=== PATIENT | male | born 1965 | race Native Hawaiian/Other Pacific Islander ===

== ENCOUNTER 2021-06-09 14:30 | Inpatient (IN) | payer SELFPAY ==
--- NOTE | 2021-06-09 16:01 | Event Note ---
ED Screening Note ED Screening Note: Patient has been sick for 8 days He is Covid positive Complaining of shortness of breath Denies chest pain He is hypoxic and tachypneic He is satting 88% on 6 L nasal cannula This initial assessment/diagnostic orders/clinical plan/treatment(s) is/are subject to change based on patients health status, clinical progression and re- assessment by fellow clinical providers in the ED. Further treatment and workup at subsequent clinical providers discretion. Patient/guardian urged not to elope from the ED as their condition may be serious if not clinically assessed and managed. Initial orders include: Orders placed and patient sent to room 19 in the main ED for MD li
--- NOTE | 2021-06-09 16:28 | XRay Report ---
XR chest 1V ap INDICATION / CLINICAL INFORMATION: COVID +, hypoxia, COMPARISON: None available. FINDINGS: SUPPORT DEVICES: None. HEART / MEDIASTINUM: No significant abnormality. LUNGS / PLEURA: Patchy bilateral airspace disease most pronounced in the left mid and lower lung zone . Costophrenic sulci are sharp. No pneumothorax. ADDITIONAL FINDINGS: No significant additional findings. IMPRESSION: 1. Patchy airspace disease consistent with Covid pneumonia. Signer Name: Tj Pennington MD Signed: 06/09/2021 4:23 PM Workstation Name: [id number]
[2021-06-09 16:32] LABS: Basophils % (Auto) 0.2 % (0.0-1.8); Hematocrit 47.9 % (35.5-45.6); Hemoglobin 15.9 gm/dl (11.8-15.2); Lymphocytes # (Auto) 1.4 K/mm3 (1.2-5.4); Lymphocytes % (Auto) 15.3 % (13.4-35.0); Mean Corpuscular HGB Conc 33 % (32-34); Mean Corpuscular Volume 85 fl (84-94); Monocytes % (Auto) 10.8 % (0.0-7.3); Platelet Count 222 K/mm3 (140-440); Red Blood Count 5.66 M/mm3 (3.65-5.03); Red Cell Distribution Width 15.6 % (13.2-15.2)
[2021-06-09] MEDS ORDERED: dexAMETHasone 4 MG/ML VIAL IV ONE (16:33)
[2021-06-09] MEDS ORDERED: AZITHROMYCIN/NS 500 MG/250 ML 500 MG/250 ML BAG IV ONE (16:33)
[2021-06-09] MEDS ORDERED: cefTRIAXone/NS 1 GM/50 ML 1 GM/50 ML BAG IV ONE (16:33)
[2021-06-09] MEDS ORDERED: SODIUM CHLORIDE 0.9% 1000 ML 1,000 ML IV ONE (16:34)
--- NOTE | 2021-06-09 16:49 | Emergency Department Report ---
ED Shortness of Breath HPI - General Chief Complaint: Dyspnea/Respdistress Stated Complaint: COVID POSITIVE OXYGEN 80 Time Seen by Provider: 06/09/21 16:30 Source: patient Mode of arrival: Ambulatory Limitations: No Limitations - History of Present Illness Initial Comments: Patient is 55 years old male with history of hypertension. Patient pre sented to the ER complaining of difficulty in breathing, cough and generalized weakness for the last 8 days. Patient stated that he was diagnosed with COVID- 19 5 days ago. Patient stated that his son was diagnosed with COVID-19 few days before that. Patient denied any chest pain, nausea or vomiting. Patient found to have an oxygen saturation of 88% on room air improved improved to 92% on 5 L. Complaint: shortness of breath, cough -: days(s) (8) Consistency: constant Improves With: oxygen Context: recent URI - Related Data Allergies Allergy/AdvReac Type Severity Reaction Status Date / Time No Known Allergies Allergy Unverified 06/09/21 14:48 ED Review of Systems ROS: Stated complaint: COVID POSITIVE OXYGEN 80 Other details as noted in HPI Comment: All other systems reviewed and negative Constitutional: chills, fever Respiratory: cough, shortness of breath, SOB with exertion, SOB at rest. de nies: orthopnea, wheezing Cardiovascular: denies: chest pain Gastrointestinal: denies: abdominal pain, nausea, vomiting Neurological: weakness. denies: headache, numbness, paresthesias, confusion, abnormal gait ED Past Medical Hx - Past Medical History Previous Medical History?: Yes Hx Hypertension: Yes - Surgical History Past Surgical History?: No ED Physical Exam - General Limitations: No Limitations General appearance: alert, in distress - Head Head exam: Present: atraumatic, normocephalic, normal inspection - Eye Eye exam: Present: normal appearance, PERRL - ENT ENT exam: Present: mucous membranes dry - Neck Neck exam: Present: normal inspection, full ROM. Absent: tenderness, meningismus, lymphadenopathy, thyromegaly - Respiratory Respiratory exam: Present: respiratory distress. Absent: wheezes, rales, rhonchi, accessory muscle use, decreased breath sounds, prolonged expiratory - Cardiovascular Cardiovascular Exam: Present: regular rate, normal rhythm, normal heart sounds - GI/Abdominal GI/Abdominal exam: Present: soft, normal bowel sounds. Absent: distended, tenderness, guarding, rebound, rigid, organomegaly, mass, bruit, pulsatile mass, hernia - Extremities Exam Extremities exam: Present: normal inspection, full ROM, normal capillary refill. Absent: tenderness, pedal edema, joint swelling, calf tenderness - Back Exam Back exam: Present: normal inspection, full ROM. Absent: CVA tenderness (R), CVA tenderness (L) - Neurological Exam Neurological exam: Present: alert, oriented X3, CN II-XII intact, normal gait, reflexes normal. Absent: motor sensory deficit - Psychiatric Psychiatric exam: Present: normal mood - Skin Skin exam: Present: warm, intact, normal color ED Course Vital Signs 06/09/21 06/09/21 06/09/21 14:53 16:31 16:32 Temperature 99.4 F Pulse Rate 86 Respiratory 30 H Rate Blood Pressure 146/77 Blood Pressure 130/73 [Right] O2 Sat by Pulse 92 92 90 Oximetry ED Medical Decision Making - Lab Data Result diagrams: 06/09/21 16:03 06/09/21 16:03 - Radiology Data Radiology results: report reviewed - Medical Decision Making Patient is 55 years old male with history of hypertension. Patient presented to the ER complaining of difficulty in breathing, cough and generalized weakness for the last 8 days. Patient stated that he was diagnosed with COVID-19 5 days ago. Patient stated that his son was diagnosed with COVID- 19 few days before that. Patient denied any chest pain, nausea or vomiting. Patient found to have an oxygen saturation of 88% on room air improved improved to 92% on 5 L. Chest x-ray showed bilateral infiltrate concerning for Covid pneumonia. Patient received Rocephin, Zithromax and Decadron. Patient also received normal saline. I discussed the patient with Dr. HACKETT, she agreed to admit the patient to medical service for further management. Critical Care Time: Yes Critical care time in (mins) excluding proc time.: 30 Critical care attestation.: If time is entered above; I have spent that time in minutes in the direct care of this critically ill patient, excluding procedure time. ED Disposition Clinical Impression: Acute respiratory failure with hypoxia, Bilateral pneumonia, Suspected COVID-19 virus infection Disposition: ADMITTED INPATIENT Is pt being admited?: Yes Condition: Stable Instructions: Bacterial Pneumonia (ED) Referrals: PRIMARY CARE, [Primary Care Provider] - 3-5 Days
[2021-06-09 16:52] LABS: C-Reactive Protein 6.3 mg/dL (0.00-1.30)
[2021-06-09 16:54] LABS: Alanine Aminotransferase 151 units/L (7-56); Albumin 3.9 g/dL (3.9-5); BUN/Creatinine Ratio 16; Blood Urea Nitrogen 13 mg/dL (9-20); Calcium 9.2 mg/dL (8.4-10.2); Hemolysis Index 10
[2021-06-09] MEDS ORDERED: HYDROcodone/ACETAMINOPHEN 5-325 MG TAB PO PRN (17:43)
[2021-06-09] MEDS ORDERED: ACETAMINOPHEN 325 MG TAB PO PRN (17:43)
[2021-06-09] MEDS ORDERED: ONDANSETRON 4 MG/2 ML INJ IV PRN (17:43)
[2021-06-09] MEDS ORDERED: hydrALAZINE 20 MG/1 ML INJ IV PRN (17:43)
--- NOTE | 2021-06-09 17:46 | History and Physical Report ---
History of Present Illness Date of examination: 06/09/21 Date of admission: 06/09/21 Chief complaint: SOB History of present illness: Patient is 55 years old male with history of hypertension presented to the ER complaining of difficulty in breathing, cough and generalized weakness for the last 8 days. Patient stated that he was diagnosed with COVID-19 5 days ago after his son was diagnosed with COVID-19 few days before that. Patient found to have an oxygen saturation of 88% on room air improved improved to 92% on 5 L. On arrival, temperature 99.4, HR 86, BP 146/77, RR 30, CXR showed b/l infiltrates. Patient being admitted for further evaluation and management. Review of System: Constitutional: + fever, + chills, no weight loss, + loss of appetite Ears, eyes, nose, mouth and throat: no nasal congestion, no nasal discharge, no sinus pressure, no vision change, no red eye. Neck: No neck pain or rigidity. Cardiovascular: + pleuretic chest pain, no orthopnea, no palpitations, no leg swelling Respiratory: + shortness of breath, + cough, + congestion, + wheezing Gastrointestinal: no abdominal pain, no nausea, no vomiting Genitourinary : no dysuria, no hematuria, + decreased urinary output Musculoskeletal: no joint swelling or muscle ache Integumentary: no rash, no pruritis Neurological: no parathesias, no numbness, no tingling Endocrine: no cold or heat intolerance, no polyuria or polydipsia, Hematologic/Lymphatic: no easy bruising, no easy bleeding, no gland swelling Allergic/Immunologic: no urticaria, no angioedema. Past History Past Medical History: hypertension Past Surgical History: No surgical history Social history: denies: smoking, alcohol abuse Family history: hypertension Medications and Allergies Allergies Allergy/AdvReac Type Severity Reaction Status Date / Time No Known Allergies Allergy Unverified 06/09/21 14:48 Exam - Physical Exam Narrative exam: Limited physical exam due to COVID-19 pandemic to minimize transmission of the disease and to preserve PPE. Vital reviewed and stable. GENERAL: well-developed well-nourished lying on bed appeared to be in no discomfort. HEENT: Normocephalic. Atraumatic. NECK: Supple. CHEST/LUNGS: breathing nonlabored on supplemental O2. HEART/CARDIOVASCULAR: Heart rate stable on telemetry ABDOMEN: Visibly not distended SKIN: There is no rash NEURO: No focal motor deficit. Follows command. MUSCULOSKELETAL: No joint effusion EXTRIMITY: No swelling, no cyanosis or clubbing. PSYCH: Cooperative. - Constitutional Vitals: Temp Pulse Resp BP Pulse Ox 99.4 F 86 30 H 146/77 90 06/09/21 14:53 06/09/21 14:53 06/09/21 14:53 06/09/21 16:32 06/09/21 16:32 Results - Labs CBC & Chem 7: 06/11/21 06:12 06/12/21 05:57 Labs: Abnormal lab results 06/09/21 06/09/21 06/09/21 Range/Units 16:03 16:03 16:03 RBC 5.66 H (3.65-5.03) M/mm3 Hgb 15.9 H (11.8-15.2) gm/dl Hct 47.9 H (35.5-45.6) % RDW 15.6 H (13.2-15.2) % [place] % (Auto) 10.8 H (0.0-7.3) % [place] # (Auto) 1.0 H (0.0-0.8) K/mm3 Seg Neutrophils % 73.7 H (40.0-70.0) % D-Dimer 306.17 H (0-234) ng/mlDDU Glucose 104 H (75-100) mg/dL Ferritin (30.0-300.0) ng/mL AST 182 H (5-40) units/L ALT 151 H (7-56) units/L Lactate Dehydrogenase (91-180) units/L C-Reactive Protein (0.00-1.30) mg/dL Total Protein 8.3 H (6.3-8.2) g/dL 06/09/21 06/09/21 Range/Units 16:03 16:03 RBC (3.65-5.03) M/mm3 Hgb (11.8-15.2) gm/dl Hct (35.5-45.6) % RDW (13.2-15.2) % [place] % (Auto) (0.0-7.3) % [place] # (Auto) (0.0-0.8) K/mm3 Seg Neutrophils % (40.0-70.0) % D-Dimer (0-234) ng/mlDDU Glucose (75-100) mg/dL Ferritin 2377.0 H (30.0-300.0) ng/mL AST (5-40) units/L ALT (7-56) units/L Lactate Dehydrogenase 575 H (91-180) units/L C-Reactive Protein 6.30 H (0.00-1.30) mg/dL Total Protein (6.3-8.2) g/dL - Imaging and Cardiology Chest x-ray: report reviewed (Patchy airspace disease suspected for COVID-19 pneumonia) Assessment and Plan --COVID-19 pneumonia -Patient tested positive for COVID-19 virus outpt -CXR shows patchy parenchymal disease which represent atypical pneumonia -S/p dexamethasone, azithromycin and Rocephin in the ED -Placed on dexamethasone for total 10 days and remdesivir total 5 days -Ordered procalcitonin level -Infectious disease consulted, -Droplet/contact isolation -Continue SPO2 monitoring -Supplemental oxygen as needed -Pulmonary hygiene -Prone to sleep -Vitamin C, vitamin D, zinc -Anticoagulation per protocol -Lasix IV as needed to prevent pulmonary edema --Acute hypoxic respiratory failure Empiric steroid, supplemental O2, albuterol inhalers, ABG chest x-ray per protocol, consult pulmonary symptoms not improving --Hypertension, resume home meds, hydralazine iv to keep SBP <160 --Elevated LFTs, due to COVID PNA --Morbid obesity, associated with worse outcome for COVID --DVT prophylaxis per protocol
[2021-06-09] MEDS ORDERED: REMDESIVIR 200 MG in SODIUM CHLORIDE 0.9% 250ML 250 ML IV ONE (20:00)
[2021-06-09] MEDS: SODIUM CHLORIDE 0.9% 50 ML IVPB IV SCH (20:34)
[2021-06-09] MEDS: ASCORBIC ACID 500 MG TAB PO SCH (21:55)
[2021-06-09] MEDS: FAMOTIDINE 10 MG TAB PO SCH (21:56)
[2021-06-09 21:57] LABS: Alanine Aminotransferase 130 units/L (7-56); Albumin 3.4 g/dL (3.9-5); Blood Urea Nitrogen 11 mg/dL (9-20); Calcium 8.2 mg/dL (8.4-10.2); Hemolysis Index 3
[2021-06-09] MEDS: HEPARIN 5,000 UNIT/1 ML VIAL SUB-Q SCH (21:57)
[2021-06-09] MEDS: INSULIN REGULAR, HUMAN 100 UNITS/1 ML SUB-Q SCH (21:57)
[2021-06-09 22:01] LABS: BUN/Creatinine Ratio 16
[2021-06-10 05:56] LABS: Alanine Aminotransferase 125 units/L (7-56); Albumin 3.4 g/dL (3.9-5); Blood Urea Nitrogen 12 mg/dL (9-20); Hemolysis Index 88
[2021-06-10 06:04] LABS: BUN/Creatinine Ratio 20
[2021-06-10] MEDS: HEPARIN 5,000 UNIT/1 ML VIAL SUB-Q SCH ×3 (06:05→22:25)
[2021-06-10] MEDS: INSULIN REGULAR, HUMAN 100 UNITS/1 ML SUB-Q SCH ×4 (09:36→22:25)
[2021-06-10] MEDS ORDERED: CHOLECALCIFEROL (VIT D3) 400 UNIT TAB PO SCH (10:00)
--- NOTE | 2021-06-10 10:38 | Consultation ---
History of Present Illness - Reason for Consult Consult date: 06/10/21 COVID - History of Present Illness 55-year-old male with history of hypertension and morbid obesity, admitted on 06/09/2021 secondary to 8-day history of body aches, generalized malaise, cough and shortness of breath. Patient tested positive for COVID-19 5 days before admission. On arrival, temperature 99.4, HR 86, BP 146/77, RR 30, O2 sat dropped to 89%. Review of Systems: reviewed ED and H&P notes. Review of system deferred to minimize COVID-19 transmission. Medications and Allergies Allergies Allergy/AdvReac Type Severity Reaction Status Date / Time No Known Allergies Allergy Unverified 06/09/21 14:48 Active Meds: Active Medications Acetaminophen (Acetaminophen 325 Mg Tab) 650 mg PO Q4H PRN PRN Reason: Pain MILD(1-3)/Fever >100.5/JOYCE Hydrocodone Bitart/Acetaminophen (Hydrocodone/Acetaminophen 5-325 Mg Tab) 2 each PO Q6H PRN PRN Reason: Pain, Moderate (4-6) Ascorbic Acid (Ascorbic Acid 500 Mg Tab) 1,000 mg PO BID [facility] Last Admin: 06/09/21 21:55 Dose: 1,000 mg Documented by: Cholecalciferol (Cholecalciferol (Vit D3) 5,000 Unit Tab) 5,000 unit PO DAILY [facility] Dexamethasone (Dexamethasone 2 Mg Tab) 6 mg PO DAILY [facility] Stop: 06/18/21 10:01 Famotidine (Famotidine 10 Mg Tab) 10 mg PO BID [facility] Last Admin: 06/09/21 21:56 Dose: Not Given Documented by: Heparin Sodium (Porcine) (Heparin 5,000 Unit/1 Ml Vial) 5,000 unit SUB-Q Q8HR [facility] Last Admin: 06/10/21 06:05 Dose: 5,000 unit Documented by: Hydralazine HCl (Hydralazine 20 Mg/1 Ml Inj) 5 mg IV Q30MIN PRN PRN Reason: Hypertension Ceftriaxone Sodium (Rocephin/Ns 1 Gm/50 Ml) 1 gm in 50 mls @ 100 mls/hr IV Q24H [facility]; Protocol Azithromycin (Zithromax/Ns) 500 mg in 250 mls @ 250 mls/hr IV Q24H [facility] REMDESIVIR 100 mg/ Sodium (Chloride) 250 mls @ 500 mls/hr IV Q24HR@2100 [facility] Stop: 06/13/21 21:29 Insulin Human Regular (Insulin Regular, Human 100 Units/1 Ml) 0 units SUB-Q ACHS [facility]; Protocol Last Admin: 06/10/21 09:36 Dose: Not Given Documented by: Ondansetron HCl (Ondansetron 4 Mg/2 Ml Inj) 4 mg IV Q8H PRN PRN Reason: N/V unrelieved by Reglan Sodium Chloride (Sodium Chloride 0.9% 50 Ml Ivpb) 50 ml IV Q24HR@2100 [facility] Stop: 06/13/21 21:01 Last Admin: 06/09/21 20:34 Dose: 50 ml Documented by: Physical Examination - Physical Exam Narrative exam: Physical exam deferred to minimize COVID-19 transmission during pandemic. - Constitutional Vitals: Vital Signs Temp Pulse Resp BP Pulse Ox 99.2 F 95 H 18 144/82 92 06/10/21 08:30 06/10/21 08:30 06/10/21 08:30 06/10/21 08:30 06/10/21 08:43 Temperature -Last 24 Hours Temperature 99.2 F Temperature 100.0 F Temperature 99.4 F Results - Labs CBC & Chem 7: 06/09/21 16:03 06/10/21 05:05 Labs: Abnormal lab results 06/09/21 06/09/21 06/09/21 Range/Units 16:03 16:03 16:03 RBC 5.66 H (3.65-5.03) M/mm3 Hgb 15.9 H (11.8-15.2) gm/dl Hct 47.9 H (35.5-45.6) % RDW 15.6 H (13.2-15.2) % [place] % (Auto) 10.8 H (0.0-7.3) % [place] # (Auto) 1.0 H (0.0-0.8) K/mm3 Seg Neutrophils % 73.7 H (40.0-70.0) % D-Dimer 306.17 H (0-234) ng/mlDDU Sodium (137-145) mmol/L Creatinine (0.8-1.3) mg/dL Glucose 104 H (75-100) mg/dL POC Glucose (70-105) mg/dL Calcium (8.4-10.2) mg/dL Ferritin (30.0-300.0) ng/mL AST 182 H (5-40) units/L ALT 151 H (7-56) units/L Lactate Dehydrogenase (91-180) units/L C-Reactive Protein (0.00-1.30) mg/dL Total Protein 8.3 H (6.3-8.2) g/dL Albumin (3.9-5) g/dL 06/09/21 06/09/21 06/09/21 Range/Units 16:03 16:03 20:47 RBC (3.65-5.03) M/mm3 Hgb (11.8-15.2) gm/dl Hct (35.5-45.6) % RDW (13.2-15.2) % [place] % (Auto) (0.0-7.3) % [place] # (Auto) (0.0-0.8) K/mm3 Seg Neutrophils % (40.0-70.0) % D-Dimer (0-234) ng/mlDDU Sodium 136 L (137-145) mmol/L Creatinine 0.7 L (0.8-1.3) mg/dL Glucose 143 H (75-100) mg/dL POC Glucose (70-105) mg/dL Calcium 8.2 L (8.4-10.2) mg/dL Ferritin 2377.0 H (30.0-300.0) ng/mL AST 152 H (5-40) units/L ALT 130 H (7-56) units/L Lactate Dehydrogenase 575 H (91-180) units/L C-Reactive Protein 6.30 H (0.00-1.30) mg/dL Total Protein (6.3-8.2) g/dL Albumin 3.4 L (3.9-5) g/dL 06/09/21 06/10/21 Range/Units 21:45 05:05 RBC (3.65-5.03) M/mm3 Hgb (11.8-15.2) gm/dl Hct (35.5-45.6) % RDW (13.2-15.2) % [place] % (Auto) (0.0-7.3) % [place] # (Auto) (0.0-0.8) K/mm3 Seg Neutrophils % (40.0-70.0) % D-Dimer (0-234) ng/mlDDU Sodium (137-145) mmol/L Creatinine 0.6 L (0.8-1.3) mg/dL Glucose 142 H (75-100) mg/dL POC Glucose 158 H (70-105) mg/dL Calcium (8.4-10.2) mg/dL Ferritin (30.0-300.0) ng/mL AST 138 H (5-40) units/L ALT 125 H (7-56) units/L Lactate Dehydrogenase (91-180) units/L C-Reactive Protein (0.00-1.30) mg/dL Total Protein (6.3-8.2) g/dL Albumin 3.4 L (3.9-5) g/dL Assessment and Plan Cultures: Blood culture SARS CoV2 PCR positive as an outpatient Assessment: 55-year-old male with history of hypertension and morbid obesity, admitted on 06/09/2021 secondary to 8-day history of body aches, generalized malaise, cough and shortness of breath: #Severe COVID pneumonia: CXR with bilateral patchy infiltrates. Infllammatory markers elevated CRP of 6.3. Procalcitonin elevated at 0.7. #Acute hypoxemic respiratory failure: Sats dropped to 89%, currently on high flow nasal cannula 30 L, 100%. #Elevated LFTs: from COVID #Morbid obesity: Associated with worse outcomes. Recommendations: -Pulmonary consult -Continue Dexamethasone daily for 10 days -Continue remdesivir for 5 days (CrCl>30 mg/mL) -Recheck CRP, if >7.5 mg/dL patient may be a candidate for Tocilizumab -Continue ceftriaxone for 5 days, azithromycin for 3 days, procalcitonin elevated -Monitor inflammatory markers - ferritin, Ddimer, CRP, LDH -Monitor liver function test on Remdesivir -Continue anticoagulation per System Protocol -Prone positioning as possible All laboratory, cultures and imaging were reviewed. Guarded prognosis, high risk of intubation Will follow Addie Kay MD Infectious Diseases [employer] [facility] M [phone] O [phone]
[2021-06-10] MEDS: DEXAMETHASONE 2 MG TAB PO SCH (12:41)
[2021-06-10] MEDS: ASCORBIC ACID 500 MG TAB PO SCH ×2 (12:41→22:25)
[2021-06-10] MEDS: FAMOTIDINE 10 MG TAB PO SCH ×2 (12:41→22:25)
[2021-06-10] MEDS: CHOLECALCIFEROL (VIT D3) 5,000 UNIT TAB PO SCH (12:41)
--- NOTE | 2021-06-10 13:11 | Progress Note ---
Assessment and Plan --COVID-19 pneumonia -Patient tested positive for COVID-19 virus outpt -CXR shows patchy parenchymal disease which represent atypical pneumonia -S/p dexamethasone, azithromycin and Rocephin in the ED -Placed on dexamethasone for total 10 days and remdesivir total 5 days -Continue empiric ceftriaxone and Zithromax as procalcitonin level is elevated -Infectious disease consulted, -Droplet/contact isolation -Continue SPO2 monitoring -Supplemental oxygen as needed -Pulmonary hygiene -Prone to sleep -Vitamin C, vitamin D, zinc -Anticoagulation per protocol -Lasix IV as needed to prevent pulmonary edema --Acute hypoxic respiratory failure Empiric steroid, supplemental O2, albuterol inhalers, ABG chest x-ray per protocol, consult pulmonary symptoms not improving --Hypertension, resume home meds, hydralazine iv to keep SBP <160 --Elevated LFTs, due to COVID PNA --Morbid obesity, associated with worse outcome for COVID --DVT prophylaxis per protocol Daily clinical course: 06/10/21: Patient remains on high flow O2, ID and pulmonary care consulted. Initiated dexamethasone and remdesivir. Patient tested positive for COVID-19. Continue to follow inflammatory markers. Guarded prognosis. Subjective Date of service: 06/10/21 Interval history: Patient seen and examined. Medical records and medication list reviewed. No acute event overnight noted by the RN. Patient placed on high flow O2 Discussed plan of care at bedside with patient. Objective - Exam Narrative Exam: Limited physical exam due to COVID-19 pandemic to minimize transmission of the disease and to preserve PPE. Vital reviewed and stable. GENERAL: well-developed obese male lying on bed appeared to be in no discomfort. HEENT: Normocephalic. Atraumatic. NECK: Supple. CHEST/LUNGS: breathing nonlabored with high flow O2. HEART/CARDIOVASCULAR: Heart rate stable on telemetry ABDOMEN: Visibly not distended SKIN: There is no rash NEURO: No focal motor deficit. Follows command. MUSCULOSKELETAL: No joint effusion EXTRIMITY: No swelling, no cyanosis or clubbing. PSYCH: Cooperative. - Constitutional Vitals: Vital Signs - 12hr 06/10/21 06/10/21 06/10/21 02:15 05:26 05:27 Temperature Pulse Rate 81 79 Respiratory 41 H 41 H Rate Blood Pressure 103/49 133/65 Blood Pressure [Right] O2 Sat by Pulse 94 87 88 Oximetry 06/10/21 06/10/21 06/10/21 05:28 05:30 05:32 Temperature Pulse Rate 82 81 78 Respiratory 43 H 36 H 39 H Rate Blood Pressure 133/65 133/65 133/65 Blood Pressure [Right] O2 Sat by Pulse 89 88 88 Oximetry 06/10/21 06/10/21 06/10/21 05:34 05:36 05:37 Temperature Pulse Rate 77 76 83 Respiratory 34 H 37 H 43 H Rate Blood Pressure 133/65 133/65 133/65 Blood Pressure [Right] O2 Sat by Pulse 89 89 89 Oximetry 06/10/21 06/10/21 06/10/21 05:38 05:40 05:42 Temperature Pulse Rate 77 73 72 Respiratory 38 H 32 H 29 H Rate Blood Pressure 133/65 133/65 133/65 Blood Pressure [Right] O2 Sat by Pulse 90 90 89 Oximetry 06/10/21 06/10/21 06/10/21 05:44 05:46 05:48 Temperature Pulse Rate 76 77 76 Respiratory 31 H 29 H 27 H Rate Blood Pressure 133/65 133/65 133/65 Blood Pressure [Right] O2 Sat by Pulse 88 89 92 Oximetry 06/10/21 06/10/21 06/10/21 05:50 05:51 05:52 Temperature Pulse Rate 73 71 70 Respiratory 22 27 H 26 H Rate Blood Pressure 133/65 125/73 133/65 Blood Pressure [Right] O2 Sat by Pulse 90 89 89 Oximetry 06/10/21 06/10/21 06/10/21 05:54 05:56 05:58 Temperature Pulse Rate 78 78 81 Respiratory 27 H 26 H 24 Rate Blood Pressure 133/65 133/65 133/65 Blood Pressure [Right] O2 Sat by Pulse 88 90 90 Oximetry 06/10/21 06/10/21 06/10/21 06:00 06:02 06:04 Temperature Pulse Rate 82 78 83 Respiratory 19 34 H 43 H Rate Blood Pressure 133/65 133/65 133/65 Blood Pressure [Right] O2 Sat by Pulse 90 89 90 Oximetry 06/10/21 06/10/21 06/10/21 06:06 06:08 06:10 Temperature Pulse Rate 85 70 70 Respiratory 22 37 H 25 H Rate Blood Pressure 133/65 133/65 133/65 Blood Pressure [Right] O2 Sat by Pulse 91 92 91 Oximetry 06/10/21 06/10/21 06/10/21 06:12 06:14 06:16 Temperature Pulse Rate 80 76 69 Respiratory 31 H 33 H 13 Rate Blood Pressure 133/65 133/65 133/65 Blood Pressure [Right] O2 Sat by Pulse 90 88 90 Oximetry 06/10/21 06/10/21 06/10/21 06:18 06:20 06:22 Temperature Pulse Rate 80 78 65 Respiratory 16 38 H 32 H Rate Blood Pressure 133/65 133/65 133/65 Blood Pressure [Right] O2 Sat by Pulse 87 87 92 Oximetry 06/10/21 06/10/21 06/10/21 06:24 06:26 06:28 Temperature Pulse Rate 79 70 71 Respiratory 34 H 38 H 29 H Rate Blood Pressure 133/65 133/65 133/65 Blood Pressure [Right] O2 Sat by Pulse 92 92 91 Oximetry 06/10/21 06/10/21 06/10/21 06:30 06:32 06:34 Temperature Pulse Rate 74 84 69 Respiratory 22 21 26 H Rate Blood Pressure 133/65 133/65 133/65 Blood Pressure [Right] O2 Sat by Pulse 90 88 88 Oximetry 06/10/21 06/10/21 06/10/21 06:36 06:38 06:40 Temperature Pulse Rate 71 68 86 Respiratory 38 H 32 H 22 Rate Blood Pressure 133/65 133/65 133/65 Blood Pressure [Right] O2 Sat by Pulse 90 93 93 Oximetry 06/10/21 06/10/21 06/10/21 06:42 06:43 06:44 Temperature Pulse Rate 84 69 76 Respiratory 15 26 H 32 H Rate Blood Pressure 133/65 125/73 133/65 Blood Pressure [Right] O2 Sat by Pulse 88 88 91 Oximetry 06/10/21 06/10/21 06/10/21 06:46 06:48 06:50 Temperature Pulse Rate 82 74 70 Respiratory 31 H 28 H 21 Rate Blood Pressure 133/65 133/65 133/65 Blood Pressure [Right] O2 Sat by Pulse 91 92 90 Oximetry 06/10/21 06/10/21 06/10/21 06:51 06:52 06:54 Temperature Pulse Rate 71 73 68 Respiratory 18 22 34 H Rate Blood Pressure 129/69 129/69 125/73 Blood Pressure [Right] O2 Sat by Pulse 88 88 88 Oximetry 06/10/21 06/10/21 06/10/21 07:30 08:00 08:30 Temperature 99.2 F Pulse Rate 74 74 95 H Respiratory 33 H 36 H 18 Rate Blood Pressure 125/73 122/74 144/82 Blood Pressure [Right] O2 Sat by Pulse 91 92 92 Oximetry 06/10/21 06/10/21 06/10/21 08:43 09:30 10:55 Temperature Pulse Rate 86 Respiratory 28 H Rate Blood Pressure 152/83 143/79 Blood Pressure [Right] O2 Sat by Pulse 92 92 Oximetry 06/10/21 10:59 Temperature 98.8 F Pulse Rate 83 Respiratory 30 H Rate Blood Pressure Blood Pressure 149/81 [Right] O2 Sat by Pulse 92 Oximetry - Labs CBC & Chem 7: 06/11/21 06:12 06/12/21 05:57 Labs: Abnormal lab results 06/09/21 06/09/21 06/09/21 Range/Units 16:03 16:03 16:03 RBC 5.66 H (3.65-5.03) M/mm3 Hgb 15.9 H (11.8-15.2) gm/dl Hct 47.9 H (35.5-45.6) % RDW 15.6 H (13.2-15.2) % [place] % (Auto) 10.8 H (0.0-7.3) % [place] # (Auto) 1.0 H (0.0-0.8) K/mm3 Seg Neutrophils % 73.7 H (40.0-70.0) % D-Dimer 306.17 H (0-234) ng/mlDDU Sodium (137-145) mmol/L Creatinine (0.8-1.3) mg/dL Glucose 104 H (75-100) mg/dL POC Glucose (70-105) mg/dL Calcium (8.4-10.2) mg/dL Ferritin (30.0-300.0) ng/mL AST 182 H (5-40) units/L ALT 151 H (7-56) units/L Lactate Dehydrogenase (91-180) units/L C-Reactive Protein (0.00-1.30) mg/dL Total Protein 8.3 H (6.3-8.2) g/dL Albumin (3.9-5) g/dL 06/09/21 06/09/21 06/09/21 Range/Units 16:03 16:03 20:47 RBC (3.65-5.03) M/mm3 Hgb (11.8-15.2) gm/dl Hct (35.5-45.6) % RDW (13.2-15.2) % [place] % (Auto) (0.0-7.3) % [place] # (Auto) (0.0-0.8) K/mm3 Seg Neutrophils % (40.0-70.0) % D-Dimer (0-234) ng/mlDDU Sodium 136 L (137-145) mmol/L Creatinine 0.7 L (0.8-1.3) mg/dL Glucose 143 H (75-100) mg/dL POC Glucose (70-105) mg/dL Calcium 8.2 L (8.4-10.2) mg/dL Ferritin 2377.0 H (30.0-300.0) ng/mL AST 152 H (5-40) units/L ALT 130 H (7-56) units/L Lactate Dehydrogenase 575 H (91-180) units/L C-Reactive Protein 6.30 H (0.00-1.30) mg/dL Total Protein (6.3-8.2) g/dL Albumin 3.4 L (3.9-5) g/dL 06/09/21 06/10/21 Range/Units 21:45 05:05 RBC (3.65-5.03) M/mm3 Hgb (11.8-15.2) gm/dl Hct (35.5-45.6) % RDW (13.2-15.2) % [place] % (Auto) (0.0-7.3) % [place] # (Auto) (0.0-0.8) K/mm3 Seg Neutrophils % (40.0-70.0) % D-Dimer (0-234) ng/mlDDU Sodium (137-145) mmol/L Creatinine 0.6 L (0.8-1.3) mg/dL Glucose 142 H (75-100) mg/dL POC Glucose 158 H (70-105) mg/dL Calcium (8.4-10.2) mg/dL Ferritin (30.0-300.0) ng/mL AST 138 H (5-40) units/L ALT 125 H (7-56) units/L Lactate Dehydrogenase (91-180) units/L C-Reactive Protein (0.00-1.30) mg/dL Total Protein (6.3-8.2) g/dL Albumin 3.4 L (3.9-5) g/dL
[2021-06-10] MEDS ORDERED: AZITHROMYCIN/NS 500 MG/250 ML 500 MG/250 ML BAG IV SCH (17:00)
[2021-06-10] MEDS ORDERED: cefTRIAXone/NS 1 GM/50 ML 1 GM/50 ML BAG IV SCH (17:00)
[2021-06-10] MEDS: SODIUM CHLORIDE 0.9% 50 ML IVPB IV SCH (22:26)
[2021-06-10] MEDS: REMDESIVIR 100 MG in SODIUM CHLORIDE 0.9% 250ML 250 ML IV SCH (22:26)
[2021-06-11] MEDS: HEPARIN 5,000 UNIT/1 ML VIAL SUB-Q SCH ×3 (06:12→21:45)
[2021-06-11 06:35] LABS: Basophils % (Auto) 0.1 % (0.0-1.8); Hematocrit 43.8 % (35.5-45.6); Hemoglobin 14.3 gm/dl (11.8-15.2); Lymphocytes # (Auto) 1.1 K/mm3 (1.2-5.4); Lymphocytes % (Auto) 9.5 % (13.4-35.0); Mean Corpuscular HGB Conc 33 % (32-34); Mean Corpuscular Volume 83 fl (84-94); Monocytes # (Auto) 1.4 K/mm3 (0.0-0.8); Monocytes % (Auto) 11.4 % (0.0-7.3); Platelet Count 310 K/mm3 (140-440); Red Blood Count 5.25 M/mm3 (3.65-5.03); Red Cell Distribution Width 15.3 % (13.2-15.2)
[2021-06-11 06:56] LABS: Alanine Aminotransferase 119 units/L (7-56); Albumin 3.2 g/dL (3.9-5); Blood Urea Nitrogen 16 mg/dL (9-20); Calcium 8.7 mg/dL (8.4-10.2); Hemolysis Index 9
[2021-06-11 07:02] LABS: BUN/Creatinine Ratio 27
[2021-06-11] MEDS: INSULIN REGULAR, HUMAN 100 UNITS/1 ML SUB-Q SCH ×3 (08:19→23:14)
[2021-06-11] MEDS: ASCORBIC ACID 500 MG TAB PO SCH ×2 (09:46→21:46)
[2021-06-11] MEDS: FAMOTIDINE 10 MG TAB PO SCH ×2 (09:47→21:46)
[2021-06-11] MEDS: CHOLECALCIFEROL (VIT D3) 5,000 UNIT TAB PO SCH (09:47)
[2021-06-11] MEDS: DEXAMETHASONE 2 MG TAB PO SCH (09:47)
--- NOTE | 2021-06-11 10:14 | Electrocardiograph Report ---
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
--- NOTE | 2021-06-11 14:09 | Progress Note ---
Assessment and Plan Cultures: Blood culture SARS CoV2 PCR positive as an outpatient Assessment: 55-year-old male with history of hypertension and morbid obesity, admitted on 06/09/2021 secondary to 8-day history of body aches, generalized malaise, cough and shortness of breath: #Severe COVID pneumonia: CXR with bilateral patchy infiltrates. Infllammatory markers elevated CRP of 6.3. Procalcitonin elevated at 0.7. CRP 6.8. #Acute hypoxemic respiratory failure: Remains on HFNC 100%/30L. #Elevated LFTs: from COVID #Morbid obesity: Associated with worse outcomes. BMI 42. Recommendations: -Pulmonary consult -Continue Dexamethasone daily for 10 days -Continue remdesivir for 5 days (CrCl>30 mg/mL) -No indication for Tocilizumab at this time due to CRP less than 7.5 -Continue ceftriaxone for 5 days, azithromycin for 3 days, procalcitonin elevat ed -Monitor inflammatory markers - ferritin, Ddimer, CRP, LDH -Monitor liver function test on Remdesivir -Continue anticoagulation per System Protocol -Prone positioning as possible All laboratory, cultures and imaging were reviewed. Guarded prognosis Will follow Addie Kay MD Infectious Diseases [facility] M [phone] O [phone] Subjective Date of service: 06/11/21 Interval history: Patient remains on high flow nasal cannula 100%, 20 L. Sats down to 90%. No fever. Objective - Exam Narrative Exam: Physical exam deferred to minimize COVID-19 transmission during pandemic. - Constitutional Vitals: Vital Signs Temp Pulse Resp BP Pulse Ox 98.4 F 65 24 135/82 90 06/11/21 12:03 06/11/21 12:03 06/11/21 12:03 06/11/21 12:03 06/11/21 12:03 Temperature -Last 24 Hours Temperature 98.4 F Temperature 98.3 F Temperature 98.4 F Temperature 98.9 F - Labs CBC & Chem 7: 06/11/21 06:12 06/11/21 06:12 Labs: Abnormal lab results 06/10/21 06/10/21 06/10/21 Range/Units 08:42 16:08 17:35 WBC (4.5-11.0) K/mm3 RBC (3.65-5.03) M/mm3 MCV (84-94) fl MCH (28-32) pg RDW (13.2-15.2) % Lymph % (Auto) (13.4-35.0) % [place] % (Auto) (0.0-7.3) % Lymph # (Auto) (1.2-5.4) K/mm3 [place] # (Auto) (0.0-0.8) K/mm3 Seg Neutrophils % (40.0-70.0) % Seg Neutrophils # (1.8-7.7) K/mm3 Creatinine (0.8-1.3) mg/dL Glucose (75-100) mg/dL POC Glucose 136 H (70-105) mg/dL AST (5-40) units/L ALT (7-56) units/L C-Reactive Protein 6.80 H (0.00-1.30) mg/dL Albumin (3.9-5) g/dL Coronavirus (PCR) Positive A (Negative) 06/10/21 06/11/21 06/11/21 Range/Units 21:20 06:12 06:12 WBC 11.8 H (4.5-11.0) K/mm3 RBC 5.25 H (3.65-5.03) M/mm3 MCV 83 L (84-94) fl MCH 27 L (28-32) pg RDW 15.3 H (13.2-15.2) % Lymph % (Auto) 9.5 L (13.4-35.0) % [place] % (Auto) 11.4 H (0.0-7.3) % Lymph # (Auto) 1.1 L (1.2-5.4) K/mm3 [place] # (Auto) 1.4 H (0.0-0.8) K/mm3 Seg Neutrophils % 79.0 H (40.0-70.0) % Seg Neutrophils # 9.3 H (1.8-7.7) K/mm3 Creatinine 0.6 L (0.8-1.3) mg/dL Glucose 144 H (75-100) mg/dL POC Glucose 182 H (70-105) mg/dL AST 83 H (5-40) units/L ALT 119 H (7-56) units/L C-Reactive Protein (0.00-1.30) mg/dL Albumin 3.2 L (3.9-5) g/dL Coronavirus (PCR) (Negative) 06/11/21 06/11/21 Range/Units 07:53 12:02 WBC (4.5-11.0) K/mm3 RBC (3.65-5.03) M/mm3 MCV (84-94) fl MCH (28-32) pg RDW (13.2-15.2) % Lymph % (Auto) (13.4-35.0) % [place] % (Auto) (0.0-7.3) % Lymph # (Auto) (1.2-5.4) K/mm3 [place] # (Auto) (0.0-0.8) K/mm3 Seg Neutrophils % (40.0-70.0) % Seg Neutrophils # (1.8-7.7) K/mm3 Creatinine (0.8-1.3) mg/dL Glucose (75-100) mg/dL POC Glucose 134 H 141 H (70-105) mg/dL AST (5-40) units/L ALT (7-56) units/L C-Reactive Protein (0.00-1.30) mg/dL Albumin (3.9-5) g/dL Coronavirus (PCR) (Negative)
--- NOTE | 2021-06-11 14:56 | Progress Note ---
Assessment and Plan --COVID-19 pneumonia -Patient tested positive for COVID-19 virus outpt -CXR shows patchy parenchymal disease which represent atypical pneumonia -S/p dexamethasone, azithromycin and Rocephin in the ED -Placed on dexamethasone for total 10 days and remdesivir total 5 days -Continue empiric ceftriaxone and Zithromax as procalcitonin level is elevated -Infectious disease consulted, -Droplet/contact isolation -Continue SPO2 monitoring -Supplemental oxygen as needed -Pulmonary hygiene -Prone to sleep -Vitamin C, vitamin D, zinc -Anticoagulation per protocol -Lasix IV as needed to prevent pulmonary edema --Acute hypoxic respiratory failure Empiric steroid, supplemental O2, albuterol inhalers, ABG chest x-ray per protocol, consult pulmonary symptoms not improving --Hypertension, resume home meds, hydralazine iv to keep SBP <160 --Elevated LFTs, due to COVID PNA --Morbid obesity, associated with worse outcome for COVID --DVT prophylaxis per protocol Daily clinical course: 06/10/21: Patient remains on high flow O2, ID and pulmonary care consulted. Initiated dexamethasone and remdesivir. Patient tested positive for COVID-19. Continue to follow inflammatory markers. Guarded prognosis. 06/11/21: Remains on high flow O2, continue dexamethasone and remdesivir. Follow inflammatory markers, wean off O2 as tolerated. Trend LFT. Guarded prognosis. Subjective Date of service: 06/11/21 Interval history: Patient seen and examined. Medical records and medication list reviewed. No acute event overnight noted by the RN. Patient placed on high flow O2 Discussed plan of care at bedside with patient. Objective - Exam Narrative Exam: Limited physical exam due to COVID-19 pandemic to minimize transmission of the disease and to preserve PPE. Vital reviewed and stable. GENERAL: well-developed obese male lying on bed appeared to be in no discomfort. HEENT: Normocephalic. Atraumatic. NECK: Supple. CHEST/LUNGS: breathing nonlabored with high flow O2. HEART/CARDIOVASCULAR: Heart rate stable on telemetry ABDOMEN: Visibly not distended SKIN: There is no rash NEURO: No focal motor deficit. Follows command. MUSCULOSKELETAL: No joint effusion EXTRIMITY: No swelling, no cyanosis or clubbing. PSYCH: Cooperative. - Constitutional Vitals: Vital Signs - 12hr 06/11/21 06/11/21 06/11/21 03:55 04:38 10:05 Temperature 98.3 F Pulse Rate 64 Respiratory 18 Rate Blood Pressure 133/81 O2 Sat by Pulse 91 93 92 Oximetry 06/11/21 06/11/21 10:58 12:03 Temperature 98.4 F Pulse Rate 65 Respiratory 24 Rate Blood Pressure 135/82 O2 Sat by Pulse 95 90 Oximetry - Labs CBC & Chem 7: 06/11/21 06:12 06/12/21 05:57 Labs: Abnormal lab results 06/10/21 06/10/21 06/10/21 Range/Units 08:42 16:08 17:35 WBC (4.5-11.0) K/mm3 RBC (3.65-5.03) M/mm3 MCV (84-94) fl MCH (28-32) pg RDW (13.2-15.2) % Lymph % (Auto) (13.4-35.0) % [place] % (Auto) (0.0-7.3) % Lymph # (Auto) (1.2-5.4) K/mm3 [place] # (Auto) (0.0-0.8) K/mm3 Seg Neutrophils % (40.0-70.0) % Seg Neutrophils # (1.8-7.7) K/mm3 Creatinine (0.8-1.3) mg/dL Glucose (75-100) mg/dL POC Glucose 136 H (70-105) mg/dL AST (5-40) units/L ALT (7-56) units/L C-Reactive Protein 6.80 H (0.00-1.30) mg/dL Albumin (3.9-5) g/dL Coronavirus (PCR) Positive A (Negative) 06/10/21 06/11/21 06/11/21 Range/Units 21:20 06:12 06:12 WBC 11.8 H (4.5-11.0) K/mm3 RBC 5.25 H (3.65-5.03) M/mm3 MCV 83 L (84-94) fl MCH 27 L (28-32) pg RDW 15.3 H (13.2-15.2) % Lymph % (Auto) 9.5 L (13.4-35.0) % [place] % (Auto) 11.4 H (0.0-7.3) % Lymph # (Auto) 1.1 L (1.2-5.4) K/mm3 [place] # (Auto) 1.4 H (0.0-0.8) K/mm3 Seg Neutrophils % 79.0 H (40.0-70.0) % Seg Neutrophils # 9.3 H (1.8-7.7) K/mm3 Creatinine 0.6 L (0.8-1.3) mg/dL Glucose 144 H (75-100) mg/dL POC Glucose 182 H (70-105) mg/dL AST 83 H (5-40) units/L ALT 119 H (7-56) units/L C-Reactive Protein (0.00-1.30) mg/dL Albumin 3.2 L (3.9-5) g/dL Coronavirus (PCR) (Negative) 06/11/21 06/11/21 Range/Units 07:53 12:02 WBC (4.5-11.0) K/mm3 RBC (3.65-5.03) M/mm3 MCV (84-94) fl MCH (28-32) pg RDW (13.2-15.2) % Lymph % (Auto) (13.4-35.0) % [place] % (Auto) (0.0-7.3) % Lymph # (Auto) (1.2-5.4) K/mm3 [place] # (Auto) (0.0-0.8) K/mm3 Seg Neutrophils % (40.0-70.0) % Seg Neutrophils # (1.8-7.7) K/mm3 Creatinine (0.8-1.3) mg/dL Glucose (75-100) mg/dL POC Glucose 134 H 141 H (70-105) mg/dL AST (5-40) units/L ALT (7-56) units/L C-Reactive Protein (0.00-1.30) mg/dL Albumin (3.9-5) g/dL Coronavirus (PCR) (Negative)
[2021-06-11] MEDS: REMDESIVIR 100 MG in SODIUM CHLORIDE 0.9% 250ML 250 ML IV SCH (21:45)
[2021-06-11] MEDS: SODIUM CHLORIDE 0.9% 50 ML IVPB IV SCH (21:45)
[2021-06-12] MEDS: HEPARIN 5,000 UNIT/1 ML VIAL SUB-Q SCH ×3 (05:32→22:07)
[2021-06-12 07:12] LABS: Alanine Aminotransferase 99 units/L (7-56); Albumin 3.2 g/dL (3.9-5); Blood Urea Nitrogen 17 mg/dL (9-20); Calcium 9.3 mg/dL (8.4-10.2); Hemolysis Index 15
[2021-06-12 07:23] LABS: BUN/Creatinine Ratio 28
[2021-06-12] MEDS: ASCORBIC ACID 500 MG TAB PO SCH ×2 (09:50→22:07)
[2021-06-12] MEDS: DEXAMETHASONE 2 MG TAB PO SCH (09:50)
[2021-06-12] MEDS: FAMOTIDINE 10 MG TAB PO SCH ×2 (09:50→22:06)
[2021-06-12] MEDS: CHOLECALCIFEROL (VIT D3) 5,000 UNIT TAB PO SCH (09:50)
[2021-06-12] MEDS: INSULIN REGULAR, HUMAN 100 UNITS/1 ML SUB-Q SCH ×3 (09:50→23:58)
--- NOTE | 2021-06-12 14:39 | Progress Note ---
Assessment and Plan Cultures: Blood culture no growth today SARS CoV2 PCR positive Assessment: 55-year-old male with history of hypertension and morbid obesity, admitted on 06/09/2021 secondary to 8-day history of body aches, generalized malaise, cough and shortness of breath: #Severe COVID pneumonia: CXR with bilateral patchy infiltrates. Infllammatory m arkers elevated CRP of 6.3. Procalcitonin elevated at 0.7. CRP 6.8. #Acute hypoxemic respiratory failure: HFNC 100%/30L #Elevated LFTs: from COVID. Improving. #Morbid obesity: Associated with worse outcomes. BMI 42. Recommendations: -Continue steroids daily for 10 days -Continue remdesivir D3 of 5 (CrCl>30 mg/mL) -No indication for Tocilizumab at this time due to CRP less than 7.5 -Continue ceftriaxone for 5 days, azithromycin for 3 days, procalcitonin elevated -Monitor inflammatory markers - ferritin, Ddimer, CRP, LDH -Monitor liver function test on Remdesivir -Continue anticoagulation per System Protocol -Prone positioning as possible All laboratory, cultures and imaging were reviewed. Guarded prognosis Will follow Addie Kay MD Infectious Diseases [facility] M [phone] O [phone] Subjective Date of service: 06/12/21 Interval history: Noted sats down to 90%. Remains on high flow 100%, 30 L. Objective - Exam Narrative Exam: Physical exam deferred to minimize COVID-19 transmission during pandemic. - Constitutional Vitals: Vital Signs Temp Pulse Resp BP Pulse Ox 98.1 F 67 22 139/87 91 06/12/21 06:27 06/12/21 11:24 06/12/21 06:27 06/12/21 06:27 06/12/21 12:14 Temperature -Last 24 Hours Temperature 98.1 F Temperature 98.4 F Temperature 98.4 F Temperature 98.3 F - Labs CBC & Chem 7: 06/11/21 06:12 06/12/21 05:57 Labs: Abnormal lab results 06/11/21 06/11/21 06/12/21 Range/Units 17:32 22:49 05:57 Creatinine 0.6 L (0.8-1.3) mg/dL Glucose 128 H (75-100) mg/dL POC Glucose 200 H 127 H (70-105) mg/dL AST 48 H (5-40) units/L ALT 99 H (7-56) units/L Albumin 3.2 L (3.9-5) g/dL 06/12/21 06/12/21 Range/Units 07:45 11:25 Creatinine (0.8-1.3) mg/dL Glucose (75-100) mg/dL POC Glucose 119 H 129 H (70-105) mg/dL AST (5-40) units/L ALT (7-56) units/L Albumin (3.9-5) g/dL
--- NOTE | 2021-06-12 15:56 | Progress Note ---
Assessment and Plan --COVID-19 pneumonia -Patient tested positive for COVID-19 virus outpt -CXR shows patchy parenchymal disease which represent atypical pneumonia -S/p dexamethasone, azithromycin and Rocephin in the ED -Placed on dexamethasone for total 10 days and remdesivir total 5 days -Continue empiric ceftriaxone and Zithromax as procalcitonin level is elevated -Infectious disease consulted, -Droplet/contact isolation -Continue SPO2 monitoring -Supplemental oxygen as needed -Pulmonary hygiene -Prone to sleep -Vitamin C, vitamin D, zinc -Anticoagulation per protocol -Lasix IV as needed to prevent pulmonary edema --Acute hypoxic respiratory failure Empiric steroid, supplemental O2, albuterol inhalers, ABG chest x-ray per protocol, consult pulmonary if symptoms not improving --Hypertension, resume home meds, hydralazine iv to keep SBP <160 --Elevated LFTs, due to COVID PNA --Morbid obesity, associated with worse outcome for COVID --DVT prophylaxis per protocol Daily clinical course: 06/10/21: Patient remains on high flow O2, ID and pulmonary care consulted. Initiated dexamethasone and remdesivir. Patient tested positive for COVID-19. Continue to follow inflammatory markers. Guarded prognosis. 06/11/21: Remains on high flow O2, continue dexamethasone and remdesivir. Follow inflammatory markers, wean off O2 as tolerated. Trend LFT. Guarded prognosis. 06/12/21: Patient remains on high flow 100% FiO2, follow inflammatory markers, continue dexamethasone remdesivir. Guarded prognosis. ID and pulmonary care following. Subjective Date of service: 06/12/21 Interval history: Patient seen and examined. Medical records and medication list reviewed. No acute event overnight noted by the RN. Patient placed on high flow O2 Discussed plan of care at bedside with patient. Objective - Exam Narrative Exam: Limited physical exam due to COVID-19 pandemic to minimize transmission of the disease and to preserve PPE. Vital reviewed and stable. GENERAL: well-developed obese male lying on bed appeared to be in no discomfort. HEENT: Normocephalic. Atraumatic. NECK: Supple. CHEST/LUNGS: breathing nonlabored with high flow O2. HEART/CARDIOVASCULAR: Heart rate stable on telemetry ABDOMEN: Visibly not distended SKIN: There is no rash NEURO: No focal motor deficit. Follows command. MUSCULOSKELETAL: No joint effusion EXTRIMITY: No swelling, no cyanosis or clubbing. PSYCH: Cooperative. - Constitutional Vitals: Vital Signs - 12hr 06/12/21 06/12/21 06/12/21 06:27 11:24 12:14 Temperature 98.1 F Pulse Rate 59 L 67 Respiratory 22 Rate Blood Pressure 139/87 O2 Sat by Pulse 90 93 91 Oximetry - Labs CBC & Chem 7: 06/11/21 06:12 06/12/21 05:57 Labs: Abnormal lab results 06/11/21 06/11/21 06/12/21 Range/Units 17:32 22:49 05:57 Creatinine 0.6 L (0.8-1.3) mg/dL Glucose 128 H (75-100) mg/dL POC Glucose 200 H 127 H (70-105) mg/dL AST 48 H (5-40) units/L ALT 99 H (7-56) units/L Albumin 3.2 L (3.9-5) g/dL 06/12/21 06/12/21 Range/Units 07:45 11:25 Creatinine (0.8-1.3) mg/dL Glucose (75-100) mg/dL POC Glucose 119 H 129 H (70-105) mg/dL AST (5-40) units/L ALT (7-56) units/L Albumin (3.9-5) g/dL
[2021-06-12] MEDS: SODIUM CHLORIDE 0.9% 50 ML IVPB IV SCH (21:03)
[2021-06-13] MEDS: REMDESIVIR 100 MG in SODIUM CHLORIDE 0.9% 250ML 250 ML IV SCH ×2 (00:06→22:17)
[2021-06-13] MEDS: HEPARIN 5,000 UNIT/1 ML VIAL SUB-Q SCH ×3 (05:55→22:37)
[2021-06-13] MEDS: INSULIN REGULAR, HUMAN 100 UNITS/1 ML SUB-Q SCH ×4 (08:21→22:18)
[2021-06-13] MEDS: CHOLECALCIFEROL (VIT D3) 5,000 UNIT TAB PO SCH (10:15)
[2021-06-13] MEDS: ASCORBIC ACID 500 MG TAB PO SCH ×2 (10:15→22:37)
[2021-06-13] MEDS: FAMOTIDINE 10 MG TAB PO SCH ×2 (10:15→22:36)
[2021-06-13] MEDS: DEXAMETHASONE 2 MG TAB PO SCH (10:15)
--- NOTE | 2021-06-13 13:45 | Progress Note ---
Assessment and Plan --COVID-19 pneumonia -Patient tested positive for COVID-19 virus outpt -CXR shows patchy parenchymal disease which represent atypical pneumonia -S/p dexamethasone, azithromycin and Rocephin in the ED -Placed on dexamethasone for total 10 days and remdesivir total 5 days -Continue empiric ceftriaxone and Zithromax as procalcitonin level is elevated -Infectious disease consulted, -Droplet/contact isolation -Continue SPO2 monitoring -Supplemental oxygen as needed -Pulmonary hygiene -Prone to sleep -Vitamin C, vitamin D, zinc -Anticoagulation per protocol -Lasix IV as needed to prevent pulmonary edema --Acute hypoxic respiratory failure Empiric steroid, supplemental O2, albuterol inhalers, ABG chest x-ray per protocol, consult pulmonary if symptoms not improving --Hypertension, resume home meds, hydralazine iv to keep SBP <160 --Elevated LFTs, due to COVID PNA --Morbid obesity, associated with worse outcome for COVID --DVT prophylaxis per protocol Daily clinical course: 06/10/21: Patient remains on high flow O2, ID and pulmonary care consulted. Initiated dexamethasone and remdesivir. Patient tested positive for COVID-19. Continue to follow inflammatory markers. Guarded prognosis. 06/11/21: Remains on high flow O2, continue dexamethasone and remdesivir. Follow inflammatory markers, wean off O2 as tolerated. Trend LFT. Guarded prognosis. 06/12/21: Patient remains on high flow 100% FiO2, follow inflammatory markers, continue dexamethasone remdesivir. Guarded prognosis. ID and pulmonary care following. 06/13/21: Remains on high flow O2, continue dexamethasone remdesivir. Guarded prognosis. Subjective Date of service: 06/13/21 Interval history: Patient seen and examined. Medical records and medication list reviewed. No acute event overnight noted by the RN. Patient placed on high flow O2 Discussed plan of care at bedside with patient. Objective - Exam Narrative Exam: Limited physical exam due to COVID-19 pandemic to minimize transmission of the disease and to preserve PPE. Vital reviewed and stable. GENERAL: well-developed obese male lying on bed appeared to be in no discomfort. HEENT: Normocephalic. Atraumatic. NECK: Supple. CHEST/LUNGS: breathing nonlabored with high flow O2. HEART/CARDIOVASCULAR: Heart rate stable on telemetry ABDOMEN: Visibly not distended SKIN: There is no rash NEURO: No focal motor deficit. Follows command. MUSCULOSKELETAL: No joint effusion EXTRIMITY: No swelling, no cyanosis or clubbing. PSYCH: Cooperative. - Constitutional Vitals: Vital Signs - 12hr 06/13/21 06/13/21 06/13/21 02:00 05:43 10:35 Temperature 97.7 F Pulse Rate Respiratory 24 Rate Blood Pressure 120/71 O2 Sat by Pulse 92 92 Oximetry 06/13/21 11:47 Temperature 98.4 F Pulse Rate 61 Respiratory 20 Rate Blood Pressure 126/72 O2 Sat by Pulse 92 Oximetry - Labs CBC & Chem 7: 06/11/21 06:12 06/12/21 05:57 Labs: Abnormal lab results 06/12/21 06/12/21 Range/Units 16:19 21:20 POC Glucose 176 H 182 H (70-105) mg/dL
--- NOTE | 2021-06-13 16:59 | Progress Note ---
Assessment and Plan Cultures: Blood culture no growth today SARS CoV2 PCR positive Assessment: 55-year-old male with history of hypertension and morbid obesity, admitted on 06/09/2021 secondary to 8-day history of body aches, generalized malaise, cough and shortness of breath: #Severe COVID pneumonia: CXR with bilateral patchy infiltrates. Infllammatory m arkers elevated CRP of 6.3. Procalcitonin elevated at 0.7. CRP 6.8. #Acute hypoxemic respiratory failure: HFNC 100%/30L #Elevated LFTs: from COVID. Improving. #Morbid obesity: Associated with worse outcomes. BMI 42. Recommendations: -Recheck CRP now -Continue steroids daily for 10 days -Continue remdesivir D4 of 5 (CrCl>30 mg/mL) -No indication for Tocilizumab at this time due to CRP less than 7.5 -Continue ceftriaxone for 5 days, azithromycin for 3 days, procalcitonin elevated -Monitor inflammatory markers - ferritin, Ddimer, CRP, LDH -Monitor liver function test on Remdesivir -Continue anticoagulation per System Protocol -Prone positioning as possible All laboratory, cultures and imaging were reviewed. Guarded prognosis, close monitoring Will follow Addie Kay MD Infectious Diseases [place] [employer] [facility] M [phone] O [phone] Subjective Date of service: 06/13/21 Interval history: Noted sats down to 90%. Remains on high flow 100%, 30 L. Sats >92%. Objective - Exam Narrative Exam: Physical exam deferred to minimize COVID-19 transmission during pandemic. - Constitutional Vitals: Vital Signs Temp Pulse Resp BP Pulse Ox 98.6 F 66 22 138/82 92 06/13/21 16:26 06/13/21 16:26 06/13/21 16:26 06/13/21 16:26 06/13/21 16:26 Temperature -Last 24 Hours Temperature 98.6 F Temperature 98.4 F Temperature 97.7 F Temperature 98.2 F - Labs CBC & Chem 7: 06/11/21 06:12 06/12/21 05:57 Labs: Abnormal lab results 06/12/21 06/13/21 Range/Units 21:20 16:24 POC Glucose 182 H 172 H (70-105) mg/dL
[2021-06-13] MEDS: SODIUM CHLORIDE 0.9% 50 ML IVPB IV SCH (22:36)
[2021-06-14] MEDS: HEPARIN 5,000 UNIT/1 ML VIAL SUB-Q SCH ×3 (05:53→22:25)
[2021-06-14] MEDS: INSULIN REGULAR, HUMAN 100 UNITS/1 ML SUB-Q SCH ×4 (08:57→22:23)
[2021-06-14] MEDS: FAMOTIDINE 10 MG TAB PO SCH ×2 (09:28→22:25)
[2021-06-14] MEDS: DEXAMETHASONE 2 MG TAB PO SCH (09:28)
[2021-06-14] MEDS: ASCORBIC ACID 500 MG TAB PO SCH ×2 (09:28→22:25)
[2021-06-14] MEDS: CHOLECALCIFEROL (VIT D3) 5,000 UNIT TAB PO SCH (09:28)
--- NOTE | 2021-06-14 14:33 | Progress Note ---
Assessment and Plan --COVID-19 pneumonia -Patient tested positive for COVID-19 virus outpt -CXR shows patchy parenchymal disease which represent atypical pneumonia -S/p dexamethasone, azithromycin and Rocephin in the ED -Placed on dexamethasone for total 10 days and remdesivir total 5 days -Continue empiric ceftriaxone and Zithromax as procalcitonin level is elevated -Infectious disease consulted, -Droplet/contact isolation -Continue SPO2 monitoring -Supplemental oxygen as needed -Pulmonary hygiene -Prone to sleep -Vitamin C, vitamin D, zinc -Anticoagulation per protocol -Lasix IV as needed to prevent pulmonary edema --Acute hypoxic respiratory failure Empiric steroid, supplemental O2, albuterol inhalers, ABG chest x-ray per protocol, consult pulmonary --Hypertension, resume home meds, hydralazine iv to keep SBP <160 --Elevated LFTs, due to COVID PNA --Morbid obesity, associated with worse outcome for COVID --DVT prophylaxis per protocol Daily clinical course: 06/10/21: Patient remains on high flow O2, ID and pulmonary care consulted. Initiated dexamethasone and remdesivir. Patient tested positive for COVID-19. Continue to follow inflammatory markers. Guarded prognosis. 06/11/21: Remains on high flow O2, continue dexamethasone and remdesivir. Follow inflammatory markers, wean off O2 as tolerated. Trend LFT. Guarded prognosis. 06/12/21: Patient remains on high flow 100% FiO2, follow inflammatory markers, continue dexamethasone remdesivir. Guarded prognosis. ID following. 06/13/21: Remains on high flow O2: HFNC 100%/30L. cont to follow inflammatory markers, 06/14/21: unable to wean off from high flow O2, follow inflammatory markers. Guarded prognosis. Subjective Date of service: 06/14/21 Interval history: Patient seen and examined. Medical records and medication list reviewed. No acute event overnight noted by the RN. Patient placed on high flow O2 Discussed plan of care at bedside with patient. Objective - Exam Narrative Exam: Limited physical exam due to COVID-19 pandemic to minimize transmission of the disease and to preserve PPE. Vital reviewed and stable. GENERAL: well-developed obese male lying on bed appeared to be in no discomfort. HEENT: Normocephalic. Atraumatic. NECK: Supple. CHEST/LUNGS: breathing nonlabored with high flow O2. HEART/CARDIOVASCULAR: Heart rate stable on telemetry ABDOMEN: Visibly not distended SKIN: There is no rash NEURO: No focal motor deficit. Follows command. MUSCULOSKELETAL: No joint effusion EXTRIMITY: No swelling, no cyanosis or clubbing. PSYCH: Cooperative. - Constitutional Vitals: Vital Signs - 12hr 06/14/21 06/14/21 06/14/21 04:10 04:52 09:38 Temperature 98.0 F Pulse Rate 63 Respiratory 20 Rate Blood Pressure 134/79 O2 Sat by Pulse 98 89 93 Oximetry 06/14/21 06/14/21 11:38 12:10 Temperature 99.1 F Pulse Rate 63 Respiratory 24 Rate Blood Pressure 129/76 O2 Sat by Pulse 96 92 Oximetry - Labs CBC & Chem 7: 06/15/21 05:51 06/15/21 05:51 Labs: Abnormal lab results 06/13/21 06/13/21 06/14/21 Range/Units 16:24 21:59 12:08 POC Glucose 172 H 226 H 124 H (70-105) mg/dL
[2021-06-15] MEDS: HEPARIN 5,000 UNIT/1 ML VIAL SUB-Q SCH ×3 (05:59→22:48)
[2021-06-15 06:23] LABS: Basophils % (Auto) 0.1 % (0.0-1.8); Eosinophils % (Auto) 0.4 % (0.0-4.3); Hemoglobin 15.1 gm/dl (11.8-15.2); Lymphocytes # (Auto) 1.5 K/mm3 (1.2-5.4); Lymphocytes % (Auto) 13.1 % (13.4-35.0); Mean Corpuscular HGB Conc 33 % (32-34); Mean Corpuscular Volume 85 fl (84-94); Monocytes # (Auto) 1.3 K/mm3 (0.0-0.8); Monocytes % (Auto) 11.8 % (0.0-7.3); Platelet Count 446 K/mm3 (140-440); Red Blood Count 5.43 M/mm3 (3.65-5.03); Red Cell Distribution Width 15.4 % (13.2-15.2)
[2021-06-15 06:31] LABS: Blood Urea Nitrogen 17 mg/dL (9-20); Calcium 9.1 mg/dL (8.4-10.2); Hemolysis Index 9
[2021-06-15 06:34] LABS: BUN/Creatinine Ratio 28
[2021-06-15] MEDS: INSULIN REGULAR, HUMAN 100 UNITS/1 ML SUB-Q SCH ×4 (08:17→22:47)
[2021-06-15] MEDS: CHOLECALCIFEROL (VIT D3) 5,000 UNIT TAB PO SCH (09:57)
[2021-06-15] MEDS: ASCORBIC ACID 500 MG TAB PO SCH ×2 (09:57→22:46)
[2021-06-15] MEDS: DEXAMETHASONE 2 MG TAB PO SCH (09:57)
[2021-06-15] MEDS: FAMOTIDINE 10 MG TAB PO SCH ×2 (09:57→22:46)
--- NOTE | 2021-06-15 14:42 | Consultation ---
History of Present Illness Consult date: 06/15/21 Requesting physician: LEILA HACKETT Reason for consult: hypoxemia, other (COVID infection) History of present illness: Patient is 55 years old male with history of hypertension presented to the ER complaining of difficulty in breathing, cough and generalized weakness for the last 8 days. Patient stated that he was diagnosed with COVID-19 5 days ago after his son was diagnosed with COVID-19 few days before that. Patient found to have an oxygen saturation of 88% on room air improved improved to 92% on 5 L. On arrival, temperature 99.4, HR 86, BP 146/77, RR 30, CXR showed b/l infiltrates. Patient was admitted fro further management. A pulmonary consult was placed today to evaluate the patient, for ongoing hypoxemia. Seen and examined. Vitals, labs, medications, chart and imaging reviewed. Remains on Vapotherm 40L/FIO2 85% He states he feels a little better Past History Past Medical History: hypertension Past Surgical History: No surgical history Social history: denies: smoking, alcohol abuse Family history: hypertension Medications and Allergies Allergies Allergy/AdvReac Type Severity Reaction Status Date / Time No Known Allergies Allergy Unverified 06/09/21 14:48 Home Medications Medication Instructions Recorded Confirmed Last Taken Type Norvasc 5 mg PO DAILY 06/15/21 06/15/21 06/01/21 History Active Meds: Active Medications Acetaminophen (Acetaminophen 325 Mg Tab) 650 mg PO Q4H PRN PRN Reason: Pain MILD(1-3)/Fever >100.5/JOYEC Hydrocodone Bitart/Acetaminophen (Hydrocodone/Acetaminophen 5-325 Mg Tab) 2 each PO Q6H PRN PRN Reason: Pain, Moderate (4-6) Ascorbic Acid (Ascorbic Acid 500 Mg Tab) 1,000 mg PO BID [facility] Last Admin: 06/15/21 09:57 Dose: 1,000 mg Documented by: Cholecalciferol (Cholecalciferol (Vit D3) 5,000 Unit Tab) 5,000 unit PO DAILY [facility] Last Admin: 06/15/21 09:57 Dose: 5,000 unit Documented by: Dexamethasone (Dexamethasone 2 Mg Tab) 6 mg PO DAILY [facility] Stop: 06/18/21 10:01 Last Admin: 06/15/21 09:57 Dose: 6 mg Documented by: Famotidine (Famotidine 10 Mg Tab) 10 mg PO BID [facility] Last Admin: 06/15/21 09:57 Dose: 10 mg Documented by: Heparin Sodium (Porcine) (Heparin 5,000 Unit/1 Ml Vial) 5,000 unit SUB-Q Q8HR [facility] Last Admin: 06/15/21 13:46 Dose: 5,000 unit Documented by: Hydralazine HCl (Hydralazine 20 Mg/1 Ml Inj) 5 mg IV Q30MIN PRN PRN Reason: Hypertension Insulin Human Regular (Insulin Regular, Human 100 Units/1 Ml) 0 units SUB-Q ACHS [facility]; Protocol Last Admin: 06/15/21 13:46 Dose: 2 units Documented by: Ondansetron HCl (Ondansetron 4 Mg/2 Ml Inj) 4 mg IV Q8H PRN PRN Reason: N/V unrelieved by Reglan Review of Systems Constitutional: no fever, no chills, no sweats, no night sweats, no fatigue, no weakness Cardiovascular: shortness of breath, no chest pain, no orthopnea, no palpitations, no edema, no syncope, no lightheadedness Respiratory: cough, shortness of breath, dyspnea on exertion, congestion, no wheezing, no pleurisy Gastrointestinal: no abdominal pain, no nausea, no vomiting, no diarrhea, no change in bowel habits Genitourinary Male: no dysuria, no hematuria, no discharge, no urinary frequency, no urinary hesitancy Neurological: no head injury, no paralysis, no weakness, no parathesias, no sei zures, no syncope Physical Examination Vital signs: Vital Signs Temp Pulse Resp BP Pulse Ox 99.4 F 86 30 H 130/73 92 06/09/21 14:53 06/09/21 14:53 06/09/21 14:53 06/09/21 14:53 06/09/21 14:53 General appearance: alert, other (morbidly obese on high flow oxygen therapy) Eyes: non-icteric ENT: oropharynx moist Neck: supple, no lymphadenopathy, no JVD Effort: mildly labored Ascultation: Bilateral: diminished breath sounds Cardiovascular: regular rate and rhythm, other (S1,S2) Gastrointestinal: normoactive bowel sounds, soft, non-tender, non-distended, other (obese) Integumentary: normal Extremities: no cyanosis, no edema, pulses normal Musculoskeletal: no deformities normal mental status, non-focal exam, pupils equal and round, CN II-XII normal, motor strength normal and mood appropriate, affect normal Results - Laboratory Findings CBC and BMP: 06/15/21 05:51 06/15/21 05:51 PT/INR, D-dimer D-Dimer 306.17 ng/mlDDU (0-234) H 06/09/21 16:03 Abnormal lab findings: Abnormal Labs 06/09/21 06/09/21 06/09/21 16:03 16:03 16:03 WBC RBC 5.66 H Hgb 15.9 H Hct 47.9 H MCV MCH RDW 15.6 H Plt Count Lymph % (Auto) [place] % (Auto) 10.8 H Lymph # (Auto) [place] # (Auto) 1.0 H Seg Neutrophils % 73.7 H Seg Neutrophils # D-Dimer 306.17 H Sodium Creatinine Glucose 104 H POC Glucose Calcium Ferritin AST 182 H ALT 151 H Lactate Dehydrogenase C-Reactive Protein Total Protein 8.3 H Albumin Coronavirus (PCR) 06/09/21 06/09/21 06/09/21 16:03 16:03 20:47 WBC RBC Hgb Hct MCV MCH RDW Plt Count Lymph % (Auto) [place] % (Auto) Lymph # (Auto) [place] # (Auto) Seg Neutrophils % Seg Neutrophils # D-Dimer Sodium 136 L Creatinine 0.7 L Glucose 143 H POC Glucose Calcium 8.2 L Ferritin 2377.0 H AST 152 H ALT 130 H Lactate Dehydrogenase 575 H C-Reactive Protein 6.30 H Total Protein Albumin 3.4 L Coronavirus (PCR) 06/09/21 06/10/21 06/10/21 21:45 05:05 08:42 WBC RBC Hgb Hct MCV MCH RDW Plt Count Lymph % (Auto) [place] % (Auto) Lymph # (Auto) [place] # (Auto) Seg Neutrophils % Seg Neutrophils # D-Dimer Sodium Creatinine 0.6 L Glucose 142 H POC Glucose 158 H Calcium Ferritin AST 138 H ALT 125 H Lactate Dehydrogenase C-Reactive Protein Total Protein Albumin 3.4 L Coronavirus (PCR) Positive A 06/10/21 06/10/21 06/10/21 16:08 17:35 21:20 WBC RBC Hgb Hct MCV MCH RDW Plt Count Lymph % (Auto) [place] % (Auto) Lymph # (Auto) [place] # (Auto) Seg Neutrophils % Seg Neutrophils # D-Dimer Sodium Creatinine Glucose POC Glucose 136 H 182 H Calcium Ferritin AST ALT Lactate Dehydrogenase C-Reactive Protein 6.80 H Total Protein Albumin Coronavirus (PCR) 06/11/21 06/11/21 06/11/21 06:12 06:12 07:53 WBC 11.8 H RBC 5.25 H Hgb Hct MCV 83 L MCH 27 L RDW 15.3 H Plt Count Lymph % (Auto) 9.5 L [place] % (Auto) 11.4 H Lymph # (Auto) 1.1 L [place] # (Auto) 1.4 H Seg Neutrophils % 79.0 H Seg Neutrophils # 9.3 H D-Dimer Sodium Creatinine 0.6 L Glucose 144 H POC Glucose 134 H Calcium Ferritin AST 83 H ALT 119 H Lactate Dehydrogenase C-Reactive Protein Total Protein Albumin 3.2 L Coronavirus (PCR) 06/11/21 06/11/21 06/11/21 12:02 17:32 22:49 WBC RBC Hgb Hct MCV MCH RDW Plt Count Lymph % (Auto) [place] % (Auto) Lymph # (Auto) [place] # (Auto) Seg Neutrophils % Seg Neutrophils # D-Dimer Sodium Creatinine Glucose POC Glucose 141 H 200 H 127 H Calcium Ferritin AST ALT Lactate Dehydrogenase C-Reactive Protein Total Protein Albumin Coronavirus (PCR) 06/12/21 06/12/21 06/12/21 05:57 07:45 11:25 WBC RBC Hgb Hct MCV MCH RDW Plt Count Lymph % (Auto) [place] % (Auto) Lymph # (Auto) [place] # (Auto) Seg Neutrophils % Seg Neutrophils # D-Dimer Sodium Creatinine 0.6 L Glucose 128 H POC Glucose 119 H 129 H Calcium Ferritin AST 48 H ALT 99 H Lactate Dehydrogenase C-Reactive Protein Total Protein Albumin 3.2 L Coronavirus (PCR) 06/12/21 06/12/21 06/13/21 16:19 21:20 16:24 WBC RBC Hgb Hct MCV MCH RDW Plt Count Lymph % (Auto) [place] % (Auto) Lymph # (Auto) [place] # (Auto) Seg Neutrophils % Seg Neutrophils # D-Dimer Sodium Creatinine Glucose POC Glucose 176 H 182 H 172 H Calcium Ferritin AST ALT Lactate Dehydrogenase C-Reactive Protein Total Protein Albumin Coronavirus (PCR) 06/13/21 06/14/21 06/14/21 21:59 12:08 18:02 WBC RBC Hgb Hct MCV MCH RDW Plt Count Lymph % (Auto) [place] % (Auto) Lymph # (Auto) [place] # (Auto) Seg Neutrophils % Seg Neutrophils # D-Dimer Sodium Creatinine Glucose POC Glucose 226 H 124 H 193 H Calcium Ferritin AST ALT Lactate Dehydrogenase C-Reactive Protein Total Protein Albumin Coronavirus (PCR) 06/14/21 06/15/21 06/15/21 22:18 05:51 05:51 WBC 11.4 H RBC 5.43 H Hgb Hct 46.0 H MCV MCH RDW 15.4 H Plt Count 446 H Lymph % (Auto) 13.1 L [place] % (Auto) 11.8 H Lymph # (Auto) [place] # (Auto) 1.3 H Seg Neutrophils % 74.6 H Seg Neutrophils # 8.5 H D-Dimer Sodium Creatinine 0.6 L Glucose 120 H POC Glucose 272 H Calcium Ferritin AST ALT Lactate Dehydrogenase C-Reactive Protein Total Protein Albumin Coronavirus (PCR) 06/15/21 06/15/21 07:58 11:43 WBC RBC Hgb Hct MCV MCH RDW Plt Count Lymph % (Auto) [place] % (Auto) Lymph # (Auto) [place] # (Auto) Seg Neutrophils % Seg Neutrophils # D-Dimer Sodium Creatinine Glucose POC Glucose 128 H 155 H Calcium Ferritin AST ALT Lactate Dehydrogenase C-Reactive Protein Total Protein Albumin Coronavirus (PCR) - Diagnostic Findings Chest x-ray: image reviewed (Bilateral alveolar infiltrates) Assessment and Plan Acute hypoxemic respiratory failure Bilateral pneumonia COVID infection Morbid obesity BMI 42.5 Hypertension - continue to titrate supplemental oxygen to keep SpO2 88-90% -ABG , CXR -Discussed prone positioning and lateral decubitus positioning with him. The bed and his size limits prone positioning - Glycemic control with SSI for target BG 140-180 mg avoid hypoglycemia - bronchodilators with pulmonary hygiene per RT - Maintenance of sleep-wake cycle, avoid delirium - VTE prophylaxis- Heparin - Monitor hemodynamics closely -Get lower extremity dopplers r/o DVT -Get transthoracic echocardiogram to evaluate pulmonary HTN and EF -Conservative fluid management, keep negative fluid balance - continue other care per attending / other consultants COVID SPECIFIC INTERVENTIONS - Remdesivir as per ID/Pulmonary developed protocol- if he remains oxygen dependant at such high flow and FIO2 can extend Remdesivir to a 10 day course - continue systemic steroids for severe COVID-19 infection empirically- Dexamethasone - Monitor inflammatory markers per facility protocol - ferritin, D-dimer, CRP -Anticoagulation per system Protocol based on d-dimer and clinical considerations - Continue contact and airborne isolation -CRP <7.5, Tociluzimab was not administered. CONDITION: CRITICAL PROGNOSIS: GUARDED CODE STATUS: FULL CODE The high probability of a clinically significant, sudden or life-threatening deterioration of the [respiratory, cardiovascular and renal ] system(s) required my full and direct attention, intervention and personal management. The aggregate critical care time was [33] minutes without overlap. Time includes spent on; [x] Data Review and interpretation [x] Patient assessment and monitoring of vital signs [x] Documentation
--- NOTE | 2021-06-15 14:45 | XRay Report ---
CHEST 1 VIEW 06/15/2021 2:38 PM INDICATION / CLINICAL INFORMATION: Respiratory failure. COMPARISON: 06/09/21. FINDINGS: SUPPORT DEVICES: None. HEART / MEDIASTINUM: Unchanged. LUNGS / PLEURA: There are moderate patchy parenchymal opacities in both mid to lower lung zones, left greater than right, which are similar to the prior study. No pleural effusion. No pneumothorax. ADDITIONAL FINDINGS: No significant additional findings. IMPRESSION: Patchy parenchymal opacities in both mid to lower lung zones have not changed significant ly. Signer Name: Alcides Mccrary MD Signed: 06/15/2021 2:40 PM Workstation Name: [id number]
--- NOTE | 2021-06-15 15:51 | Progress Note ---
Assessment and Plan --COVID-19 pneumonia -Patient tested positive for COVID-19 virus outpt -CXR shows patchy parenchymal disease which represent atypical pneumonia -S/p dexamethasone, azithromycin and Rocephin in the ED -Placed on dexamethasone for total 10 days and remdesivir total 5 days -Continue empiric ceftriaxone and Zithromax as procalcitonin level is elevated -Infectious disease consulted, -Droplet/contact isolation -Continue SPO2 monitoring -Supplemental oxygen as needed -Pulmonary hygiene -Prone to sleep -Vitamin C, vitamin D, zinc -Anticoagulation per protocol -Lasix IV as needed to prevent pulmonary edema --Acute hypoxic respiratory failure Empiric steroid, supplemental O2, albuterol inhalers, ABG chest x-ray per protocol, consult pulmonary --Hypertension, resume home meds, hydralazine iv to keep SBP <160 --Elevated LFTs, due to COVID PNA --Morbid obesity, associated with worse outcome for COVID --DVT prophylaxis per protocol Daily clinical course: 06/10/21: Patient remains on high flow O2, ID and pulmonary care consulted. Initiated dexamethasone and remdesivir. Patient tested positive for COVID-19. Continue to follow inflammatory markers. Guarded prognosis. 06/11/21: Remains on high flow O2, continue dexamethasone and remdesivir. Follow inflammatory markers, wean off O2 as tolerated. Trend LFT. Guarded prognosis. 06/12/21: Patient remains on high flow 100% FiO2, follow inflammatory markers, continue dexamethasone remdesivir. Guarded prognosis. ID following. 06/13/21: Remains on high flow O2: HFNC 100%/30L. cont to follow inflammatory markers, 06/14/21: unable to wean off from high flow O2, follow inflammatory markers. Guarded prognosis. 06/15/21: Remains on high flow O2, continue to follow inflammatory markers. ID and pulmonary following. Guarded prognosis. Completed remdesivir. Subjective Date of service: 06/15/21 Interval history: Patient seen and examined. Medical records and medication list reviewed. No acute event overnight noted by the RN. Patient placed on high flow O2 Discussed plan of care at bedside with patient. Objective - Exam Narrative Exam: Limited physical exam due to COVID-19 pandemic to minimize transmission of the disease and to preserve PPE. Vital reviewed and stable. GENERAL: well-developed obese male lying on bed appeared to be in no discomfort. HEENT: Normocephalic. Atraumatic. NECK: Supple. CHEST/LUNGS: breathing nonlabored with high flow O2. HEART/CARDIOVASCULAR: Heart rate stable on telemetry ABDOMEN: Visibly not distended SKIN: There is no rash NEURO: No focal motor deficit. Follows command. MUSCULOSKELETAL: No joint effusion EXTRIMITY: No swelling, no cyanosis or clubbing. PSYCH: Cooperative. - Constitutional Vitals: Vital Signs - 12hr 06/15/21 06/15/21 06/15/21 05:01 05:28 05:30 Temperature 98.3 F Pulse Rate 59 L Respiratory 20 20 Rate Blood Pressure 120/71 O2 Sat by Pulse 93 93 92 Oximetry 06/15/21 06/15/21 06/15/21 08:00 11:44 13:13 Temperature 99.2 F Pulse Rate 65 Respiratory 18 Rate Blood Pressure 131/71 O2 Sat by Pulse 94 91 93 Oximetry - Labs CBC & Chem 7: 06/15/21 05:51 06/15/21 05:51 Labs: Abnormal lab results 06/14/21 06/14/21 06/15/21 Range/Units 18:02 22:18 05:51 WBC 11.4 H (4.5-11.0) K/mm3 RBC 5.43 H (3.65-5.03) M/mm3 Hct 46.0 H (35.5-45.6) % RDW 15.4 H (13.2-15.2) % Plt Count 446 H (140-440) K/mm3 Lymph % (Auto) 13.1 L (13.4-35.0) % [place] % (Auto) 11.8 H (0.0-7.3) % [place] # (Auto) 1.3 H (0.0-0.8) K/mm3 Seg Neutrophils % 74.6 H (40.0-70.0) % Seg Neutrophils # 8.5 H (1.8-7.7) K/mm3 Creatinine (0.8-1.3) mg/dL Glucose (75-100) mg/dL POC Glucose 193 H 272 H (70-105) mg/dL 06/15/21 06/15/21 06/15/21 Range/Units 05:51 07:58 11:43 WBC (4.5-11.0) K/mm3 RBC (3.65-5.03) M/mm3 Hct (35.5-45.6) % RDW (13.2-15.2) % Plt Count (140-440) K/mm3 Lymph % (Auto) (13.4-35.0) % [place] % (Auto) (0.0-7.3) % [place] # (Auto) (0.0-0.8) K/mm3 Seg Neutrophils % (40.0-70.0) % Seg Neutrophils # (1.8-7.7) K/mm3 Creatinine 0.6 L (0.8-1.3) mg/dL Glucose 120 H (75-100) mg/dL POC Glucose 128 H 155 H (70-105) mg/dL
[2021-06-15 18:41] LABS: ABG Base Excess 0.7 mmol/L (-2.0-3.0); ABG HCO3 24.9 mmol/L (20.0-26.0); ABG Methemoglobin 0.5 % (0.0-1.5); ABG Oxygen Saturation 95.9 % (95.0-99.0); ABG PCO2 38.9 mm Hg; ABG PH 7.424 pH Units (7.350-7.450); ABG PO2 77.3 mm Hg (80.0-90.0)
[2021-06-16] MEDS: HEPARIN 5,000 UNIT/1 ML VIAL SUB-Q SCH ×3 (06:26→22:54)
[2021-06-16] MEDS: INSULIN REGULAR, HUMAN 100 UNITS/1 ML SUB-Q SCH ×5 (10:40→22:53)
[2021-06-16] MEDS: FAMOTIDINE 10 MG TAB PO SCH ×2 (11:07→22:53)
[2021-06-16] MEDS: CHOLECALCIFEROL (VIT D3) 5,000 UNIT TAB PO SCH (11:07)
[2021-06-16] MEDS: ASCORBIC ACID 500 MG TAB PO SCH ×2 (11:07→22:53)
[2021-06-16] MEDS: DEXAMETHASONE 2 MG TAB PO SCH (11:07)
--- NOTE | 2021-06-16 13:39 | Progress Note ---
Assessment and Plan Patient is 55 years old male Morbidley Obese,with history of hypertension presented to the ER complaining of difficulty in breathing, cough and generalized weakness for the last 8 days. Patient stated that he was diagnosed with COVID-19 5 days ago after his son was diagnosed with COVID-19 few days before that. Patient found to have an oxygen saturation of 88% on room air improved improved to 92% on 5 L. On arrival, temperature 99.4, HR 86, BP 146/77, RR 30, CXR showed b/l infiltrates. Patient being admitted for further e valuation and management. Patient has history smoking long time ago. Stopped smoking many years ago. Occassional alcohol. 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 Patient alert, awake and is on Vapotherm, FIO2 85%. O2 saturation running 93%. Patient denies chest pain, shortness of breath or cough. Patient afebrile. Has mild leukocytosis. Blood pressure 113/74, Pulse 61. Chest xray obtained 06/15/21 reported Patchy parenchymal opacities in both mid to lower lung zones have not changed significantly. Patient presently on Dexamethasone, S/C heparin, Famotidine. I spent critical care time of 40 minutes in obtaining the history, review the chart, examining the patient, review chest xray, labs, talking to the respiratory therapy and nursing staff and worked out plan of treatment in COVID 19 positive patient with COVID pneumonia and acute hypoxic respiratory failure. - Patient Problems (1) Acute respiratory failure with hypoxia Current Visit: Yes Status: Acute Plan to address problem: Vapotherm, FIO2 85% Continue Dexamethasone Continue S/C heparin Continue famotidine. Recommend Prone positioning. (2) Bilateral pneumonia Current Visit: Yes Status: Acute Plan to address problem: Antibiotics as per ID. (3) Coronavirus infection Current Visit: Yes Status: Acute Plan to address problem: Management as per infectious diseases. Patient is on Dexamethasone, S/C Heparin and famotidine. Subjective Date of service: 06/16/21 Interval history: Patient is 55 years old male Morbidley Obese,with history of hypertension presented to the ER complaining of difficulty in breathing, cough and generalized weakness for the last 8 days. Patient stated that he was diagnosed with COVID-19 5 days ago after his son was diagnosed with COVID-19 few days before that. Patient found to have an oxygen saturation of 88% on room air improved improved to 92% on 5 L. On arrival, temperature 99.4, HR 86, BP 146/77, RR 30, CXR showed b/l infiltrates. Patient being admitted for further evaluation and management. Patient has history smoking long time ago. Stopped smoking many years ago. Occassional alcohol. 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 Patient alert, awake and is on Vapotherm, FIO2 85%. O2 saturation running 93%. Patient denies chest pain, shortness of breath or cough. Patient afebrile. Has mild leukocytosis. Blood pressure 113/74, Pulse 61. Chest xray obtained 06/15/21 reported Patchy parenchymal opacities in both mid to lower lung zones have not changed significantly. Patient presently on Dexamethasone, S/C heparin, Famotidine. Objective Vital Signs - 12hr 06/16/21 06/16/21 06/16/21 01:51 05:50 08:00 Temperature 97.9 F Pulse Rate 55 L Respiratory 20 20 Rate Blood Pressure 121/75 O2 Sat by Pulse 94 93 93 Oximetry Constitutional: no acute distress, alert, other (morbidly obese on high flow oxygen therapy) Eyes: non-icteric ENT: oropharynx moist Neck: supple, no lymphadenopathy, no JVD Effort: mildly labored Ascultation: Bilateral: diminished breath sounds Cardiovascular: regular rate and rhythm, other (S1,S2) Gastrointestinal: normoactive bowel sounds, soft, non-tender, non-distended, other (obese) Integumentary: normal Extremities: no cyanosis, no edema, pulses normal Neurologic: normal mental status, non-focal exam, pupils equal and round, CN II- XII normal, motor strength normal and Psychiatric: mood appropriate, affect normal CBC and BMP: 06/15/21 05:51 06/15/21 05:51 ABG, PT/INR, D-dimer: ABG ABG pH 7.424 pH Units (7.350-7.450) 06/15/21 18:35 ABG pCO2 38.9 mm Hg 06/15/21 18:35 ABG pO2 77.3 mm Hg (80.0-90.0) L 06/15/21 18:35 ABG O2 Saturation 95.9 % (95.0-99.0) 06/15/21 18:35 PT/INR, D-dimer D-Dimer 306.17 ng/mlDDU (0-234) H 06/09/21 16:03 Abnormal lab findings: Abnormal Labs 06/09/21 06/09/21 06/09/21 16:03 16:03 16:03 WBC RBC 5.66 H Hgb 15.9 H Hct 47.9 H MCV MCH RDW 15.6 H Plt Count Lymph % (Auto) [place] % (Auto) 10.8 H Lymph # (Auto) [place] # (Auto) 1.0 H Seg Neutrophils % 73.7 H Seg Neutrophils # D-Dimer 306.17 H ABG pO2 Oxyhemoglobin Sodium Creatinine Glucose 104 H POC Glucose Calcium Ferritin AST 182 H ALT 151 H Lactate Dehydrogenase C-Reactive Protein Total Protein 8.3 H Albumin Coronavirus (PCR) 06/09/21 06/09/21 06/09/21 16:03 16:03 20:47 WBC RBC Hgb Hct MCV MCH RDW Plt Count Lymph % (Auto) [place] % (Auto) Lymph # (Auto) [place] # (Auto) Seg Neutrophils % Seg Neutrophils # D-Dimer ABG pO2 Oxyhemoglobin Sodium 136 L Creatinine 0.7 L Glucose 143 H POC Glucose Calcium 8.2 L Ferritin 2377.0 H AST 152 H ALT 130 H Lactate Dehydrogenase 575 H C-Reactive Protein 6.30 H Total Protein Albumin 3.4 L Coronavirus (PCR) 06/09/21 06/10/21 06/10/21 21:45 05:05 08:42 WBC RBC Hgb Hct MCV MCH RDW Plt Count Lymph % (Auto) [place] % (Auto) Lymph # (Auto) [place] # (Auto) Seg Neutrophils % Seg Neutrophils # D-Dimer ABG pO2 Oxyhemoglobin Sodium Creatinine 0.6 L Glucose 142 H POC Glucose 158 H Calcium Ferritin AST 138 H ALT 125 H Lactate Dehydrogenase C-Reactive Protein Total Protein Albumin 3.4 L Coronavirus (PCR) Positive A 06/10/21 06/10/21 06/10/21 16:08 17:35 21:20 WBC RBC Hgb Hct MCV MCH RDW Plt Count Lymph % (Auto) [place] % (Auto) Lymph # (Auto) [place] # (Auto) Seg Neutrophils % Seg Neutrophils # D-Dimer ABG pO2 Oxyhemoglobin Sodium Creatinine Glucose POC Glucose 136 H 182 H Calcium Ferritin AST ALT Lactate Dehydrogenase C-Reactive Protein 6.80 H Total Protein Albumin Coronavirus (PCR) 06/11/21 06/11/21 06/11/21 06:12 06:12 07:53 WBC 11.8 H RBC 5.25 H Hgb Hct MCV 83 L MCH 27 L RDW 15.3 H Plt Count Lymph % (Auto) 9.5 L [place] % (Auto) 11.4 H Lymph # (Auto) 1.1 L [place] # (Auto) 1.4 H Seg Neutrophils % 79.0 H Seg Neutrophils # 9.3 H D-Dimer ABG pO2 Oxyhemoglobin Sodium Creatinine 0.6 L Glucose 144 H POC Glucose 134 H Calcium Ferritin AST 83 H ALT 119 H Lactate Dehydrogenase C-Reactive Protein Total Protein Albumin 3.2 L Coronavirus (PCR) 06/11/21 06/11/21 06/11/21 12:02 17:32 22:49 WBC RBC Hgb Hct MCV MCH RDW Plt Count Lymph % (Auto) [place] % (Auto) Lymph # (Auto) [place] # (Auto) Seg Neutrophils % Seg Neutrophils # D-Dimer ABG pO2 Oxyhemoglobin Sodium Creatinine Glucose POC Glucose 141 H 200 H 127 H Calcium Ferritin AST ALT Lactate Dehydrogenase C-Reactive Protein Total Protein Albumin Coronavirus (PCR) 06/12/21 06/12/21 06/12/21 05:57 07:45 11:25 WBC RBC Hgb Hct MCV MCH RDW Plt Count Lymph % (Auto) [place] % (Auto) Lymph # (Auto) [place] # (Auto) Seg Neutrophils % Seg Neutrophils # D-Dimer ABG pO2 Oxyhemoglobin Sodium Creatinine 0.6 L Glucose 128 H POC Glucose 119 H 129 H Calcium Ferritin AST 48 H ALT 99 H Lactate Dehydrogenase C-Reactive Protein Total Protein Albumin 3.2 L Coronavirus (PCR) 06/12/21 06/12/21 06/13/21 16:19 21:20 16:24 WBC RBC Hgb Hct MCV MCH RDW Plt Count Lymph % (Auto) [place] % (Auto) Lymph # (Auto) [place] # (Auto) Seg Neutrophils % Seg Neutrophils # D-Dimer ABG pO2 Oxyhemoglobin Sodium Creatinine Glucose POC Glucose 176 H 182 H 172 H Calcium Ferritin AST ALT Lactate Dehydrogenase C-Reactive Protein Total Protein Albumin Coronavirus (PCR) 06/13/21 06/14/21 06/14/21 21:59 12:08 18:02 WBC RBC Hgb Hct MCV MCH RDW Plt Count Lymph % (Auto) [place] % (Auto) Lymph # (Auto) [place] # (Auto) Seg Neutrophils % Seg Neutrophils # D-Dimer ABG pO2 Oxyhemoglobin Sodium Creatinine Glucose POC Glucose 226 H 124 H 193 H Calcium Ferritin AST ALT Lactate Dehydrogenase C-Reactive Protein Total Protein Albumin Coronavirus (PCR) 06/14/21 06/15/21 06/15/21 22:18 05:51 05:51 WBC 11.4 H RBC 5.43 H Hgb Hct 46.0 H MCV MCH RDW 15.4 H Plt Count 446 H Lymph % (Auto) 13.1 L [place] % (Auto) 11.8 H Lymph # (Auto) [place] # (Auto) 1.3 H Seg Neutrophils % 74.6 H Seg Neutrophils # 8.5 H D-Dimer ABG pO2 Oxyhemoglobin Sodium Creatinine 0.6 L Glucose 120 H POC Glucose 272 H Calcium Ferritin AST ALT Lactate Dehydrogenase C-Reactive Protein Total Protein Albumin Coronavirus (PCR) 06/15/21 06/15/21 06/15/21 07:58 11:43 18:28 WBC RBC Hgb Hct MCV MCH RDW Plt Count Lymph % (Auto) [place] % (Auto) Lymph # (Auto) [place] # (Auto) Seg Neutrophils % Seg Neutrophils # D-Dimer ABG pO2 Oxyhemoglobin Sodium Creatinine Glucose POC Glucose 128 H 155 H 244 H Calcium Ferritin AST ALT Lactate Dehydrogenase C-Reactive Protein Total Protein Albumin Coronavirus (PCR) 06/15/21 06/15/21 06/16/21 18:35 21:52 07:46 WBC RBC Hgb Hct MCV MCH RDW Plt Count Lymph % (Auto) [place] % (Auto) Lymph # (Auto) [place] # (Auto) Seg Neutrophils % Seg Neutrophils # D-Dimer ABG pO2 77.3 L Oxyhemoglobin 94.6 L Sodium Creatinine Glucose POC Glucose 180 H 158 H Calcium Ferritin AST ALT Lactate Dehydrogenase C-Reactive Protein Total Protein Albumin Coronavirus (PCR) Chest x-ray: report reviewed, image reviewed Additional Studies: CHEST 1 VIEW 06/15/2021 2:38 PM INDICATION / CLINICAL INFORMATION: Respiratory failure. COMPARISON: 06/09/21. FINDINGS: SUPPORT DEVICES: None. HEART / MEDIASTINUM: Unchanged. LUNGS / PLEURA: There are moderate patchy parenchymal opacities in both mid to lower lung zones, left greater than right, which are similar to the prior study. No pleural ef fusion. No pneumothorax. ADDITIONAL FINDINGS: No significant additional findings. IMPRESSION: Patchy parenchymal opacities in both mid to lower lung zones have not changed significantly.
--- NOTE | 2021-06-16 15:36 | Progress Note ---
Assessment and Plan Cultures: Blood culture no growth today SARS CoV2 PCR positive Assessment: 55-year-old male with history of hypertension and morbid obesity, admitted on 06/09/2021 secondary to 8-day history of body aches, generalized malaise, cough and shortness of breath: #Severe COVID pneumonia: CXR with bilateral patchy infiltrates. Infllammatory m arkers elevated CRP of 6.3-->0.6. Procalcitonin elevated at 0.7. #Acute hypoxemic respiratory failure: Remains on high flow nasal cannula, 35 L, 85%. #Elevated LFTs: from COVID. Improving. #Morbid obesity: Associated with worse outcomes. BMI 42. Recommendations: -Continue steroids daily for 10 days -Completed remdesivir -Completed ceftriaxone/azithromycin. -Monitor inflammatory markers - ferritin, Ddimer, CRP, LDH -Continue anticoagulation per System Protocol -Prone positioning as possible Will follow Addie Kay MD Infectious Diseases Acoustic Engineer [facility] ([facility]) M [phone] O [phone] Subjective Date of service: 06/16/21 Interval history: Patient remains on high flow 35 L, 85%, no fever. No desaturations. Objective - Exam Narrative Exam: Physical exam deferred to minimize COVID-19 transmission during pandemic. - Constitutional Vitals: Vital Signs Temp Pulse Resp BP Pulse Ox 98.9 F 61 22 113/74 94 06/16/21 12:20 06/16/21 12:20 06/16/21 12:20 06/16/21 12:20 06/16/21 12:20 Temperature -Last 24 Hours Temperature 98.9 F Temperature 97.9 F Temperature 98.1 F Temperature 99.9 F - Labs CBC & Chem 7: 06/15/21 05:51 06/15/21 05:51 Labs: Abnormal lab results 06/15/21 06/15/21 06/15/21 Range/Units 18:28 18:35 21:52 ABG pO2 77.3 L (80.0-90.0) mm Hg Oxyhemoglobin 94.6 L (95.0-99.0) % POC Glucose 244 H 180 H (70-105) mg/dL 06/16/21 Range/Units 07:46 ABG pO2 (80.0-90.0) mm Hg Oxyhemoglobin (95.0-99.0) % POC Glucose 158 H (70-105) mg/dL
--- NOTE | 2021-06-16 17:03 | Progress Note ---
Assessment and Plan --COVID-19 pneumonia -Patient tested positive for COVID-19 virus outpt -CXR shows patchy parenchymal disease which represent atypical pneumonia -S/p dexamethasone, azithromycin and Rocephin in the ED -Placed on dexamethasone for total 10 days and remdesivir total 5 days -Continue empiric ceftriaxone and Zithromax as procalcitonin level is elevated -Infectious disease consulted, -Droplet/contact isolation -Continue SPO2 monitoring -Supplemental oxygen as needed -Pulmonary hygiene -Prone to sleep -Vitamin C, vitamin D, zinc -Anticoagulation per protocol -Lasix IV as needed to prevent pulmonary edema --Acute hypoxic respiratory failure Empiric steroid, supplemental O2, albuterol inhalers, ABG chest x-ray per protocol, consult pulmonary --Hypertension, resume home meds, hydralazine iv to keep SBP <160 --Elevated LFTs, due to COVID PNA --Morbid obesity, associated with worse outcome for COVID --DVT prophylaxis per protocol Daily clinical course: 06/10/21: Patient remains on high flow O2, ID and pulmonary care consulted. Initiated dexamethasone and remdesivir. Patient tested positive for COVID-19. Continue to follow inflammatory markers. Guarded prognosis. 06/11/21: Remains on high flow O2, continue dexamethasone and remdesivir. Follow inflammatory markers, wean off O2 as tolerated. Trend LFT. Guarded prognosis. 06/12/21: Patient remains on high flow 100% FiO2, follow inflammatory markers, continue dexamethasone remdesivir. Guarded prognosis. ID following. 06/13/21: Remains on high flow O2: HFNC 100%/30L. cont to follow inflammatory markers, 06/14/21: unable to wean off from high flow O2, follow inflammatory markers. Guarded prognosis. 06/15/21: Remains on high flow O2, continue to follow inflammatory markers. ID and pulmonary following. Guarded prognosis. Completed remdesivir. 06/16/21: Continue to follow inflammatory markers, patient remains on high flow O2, guarded prognosis. Subjective Date of service: 06/16/21 Interval history: Patient seen and examined. Medical records and medication list reviewed. No acute event overnight noted by the RN. Patient placed on high flow O2 Discussed plan of care at bedside with patient. Objective - Exam Narrative Exam: Limited physical exam due to COVID-19 pandemic to minimize transmission of the disease and to preserve PPE. Vital reviewed and stable. GENERAL: well-developed obese male lying on bed appeared to be in no discomfort. HEENT: Normocephalic. Atraumatic. NECK: Supple. CHEST/LUNGS: breathing nonlabored with high flow O2. HEART/CARDIOVASCULAR: Heart rate stable on telemetry ABDOMEN: Visibly not distended SKIN: There is no rash NEURO: No focal motor deficit. Follows command. MUSCULOSKELETAL: No joint effusion EXTRIMITY: No swelling, no cyanosis or clubbing. PSYCH: Cooperative. - Constitutional Vitals: Vital Signs - 12hr 06/16/21 06/16/21 06/16/21 05:50 08:00 12:20 Temperature 97.9 F 98.9 F Pulse Rate 55 L 61 Respiratory 20 22 Rate Blood Pressure 121/75 Blood Pressure 113/74 [Right] O2 Sat by Pulse 93 93 94 Oximetry - Labs CBC & Chem 7: 06/15/21 05:51 06/15/21 05:51 Labs: Abnormal lab results 06/15/21 06/15/21 06/15/21 Range/Units 18:28 18:35 21:52 ABG pO2 77.3 L (80.0-90.0) mm Hg Oxyhemoglobin 94.6 L (95.0-99.0) % POC Glucose 244 H 180 H (70-105) mg/dL 06/16/21 06/16/21 Range/Units 07:46 16:59 ABG pO2 (80.0-90.0) mm Hg Oxyhemoglobin (95.0-99.0) % POC Glucose 158 H 219 H (70-105) mg/dL
[2021-06-17] MEDS: HEPARIN 5,000 UNIT/1 ML VIAL SUB-Q SCH ×4 (06:06→21:28)
[2021-06-17] MEDS: INSULIN REGULAR, HUMAN 100 UNITS/1 ML SUB-Q SCH ×4 (08:47→21:30)
[2021-06-17] MEDS: CHOLECALCIFEROL (VIT D3) 5,000 UNIT TAB PO SCH (10:40)
[2021-06-17] MEDS: ZINC SULFATE 220 MG CAP PO SCH ×2 (10:40→21:28)
[2021-06-17] MEDS: DEXAMETHASONE 2 MG TAB PO SCH (10:40)
[2021-06-17] MEDS: ASCORBIC ACID 500 MG TAB PO SCH ×2 (10:40→21:28)
[2021-06-17] MEDS: FAMOTIDINE 10 MG TAB PO SCH ×2 (10:40→21:28)
--- NOTE | 2021-06-17 12:23 | Progress Note ---
Assessment and Plan Patient is 55 years old male Morbidley Obese,with history of hypertension presented to the ER complaining of difficulty in breathing, cough and generalized weakness for the last 8 days. Patient stated that he was diagnosed with COVID-19 5 days ago after his son was diagnosed with COVID-19 few days before that. Patient found to have an oxygen saturation of 88% on room air improved improved to 92% on 5 L. On arrival, temperature 99.4, HR 86, BP 146/77, RR 30, CXR showed b/l infiltrates. Patient being admitted for further e valuation and management. Patient has history smoking long time ago. Stopped smoking many years ago. Occassional alcohol. 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 atient alert, awake and is on Vapotherm, FIO2 85%. O2 saturation running 95%. Patient denies chest pain, shortness of breath or cough. Patient afebrile. Has mild leukocytosis. Blood pressure 119/68, Pulse 67. Patients inflammatory markers Serum Ferritin 896.9 LDH 233 CRP .20 D dimer 149.11 Chest xray obtained 06/15/21 reported Patchy parenchymal opacities in both mid to lower lung zones have not changed significantly. Patient presently on Dexamethasone, S/C heparin, Famotidine. I spent critical care time of 35 minutes, reviewing the chart, examine the patient, review the labs, talking to the respiratory and nursing staff and work out plan of treatment in this COVID positive patient with COVID pneumonia and acute hypoxic respiratory failure. - Patient Problems (1) Acute respiratory failure with hypoxia Current Visit: Yes Status: Acute Plan to address problem: Vapotherm, FIO2 85% Continue Dexamethasone Continue S/C heparin Continue famotidine. Recommend Prone positioning. (2) Bilateral pneumonia Current Visit: Yes Status: Acute Plan to address problem: Antibiotics as per ID. (3) Coronavirus infection Current Visit: Yes Status: Acute Plan to address problem: Management as per infectious diseases. Subjective Date of service: 06/17/21 Interval history: Patient is 55 years old male Morbidley Obese,with history of hypertension presented to the ER complaining of difficulty in breathing, cough and generalized weakness for the last 8 days. Patient stated that he was diagnosed with COVID-19 5 days ago after his son was diagnosed with COVID-19 few days before that. Patient found to have an oxygen saturation of 88% on room air improved improved to 92% on 5 L. On arrival, temperature 99.4, HR 86, BP 146/77, RR 30, CXR showed b/l infiltrates. Patient being admitted for further evaluation and management. Patient has history smoking long time ago. Stopped smoking many years ago. Occassional alcohol. 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 Patient alert, awake and is on Vapotherm, FIO2 85%. O2 saturation running 95%. Patient denies chest pain, shortness of breath or cough. Patient afebrile. Has mild leukocytosis. Blood pressure 119/68, Pulse 67. Patients inflammatory markers Serum Ferritin 896.9 LDH 233 CRP .20 D dimer 149.11 Chest xray obtained 06/15/21 reported Patchy parenchymal opacities in both mid to lower lung zones have not changed significantly. Patient presently on Dexamethasone, S/C heparin, Famotidine. Objective Vital Signs - 12hr 06/17/21 06/17/21 06/17/21 01:00 02:00 10:15 Respiratory 20 Rate O2 Sat by Pulse 95 94 92 Oximetry Constitutional: no acute distress, alert, other (morbidly obese on high flow oxygen therapy) Eyes: non-icteric ENT: oropharynx moist Neck: supple, no lymphadenopathy, no JVD Effort: mildly labored Ascultation: Bilateral: diminished breath sounds Cardiovascular: regular rate and rhythm, other (S1,S2) Gastrointestinal: normoactive bowel sounds, soft, non-tender, non-distended, other (obese) Integumentary: normal Extremities: no cyanosis, no edema, pulses normal Neurologic: normal mental status, non-focal exam, pupils equal and round, CN II- XII normal, motor strength normal and Psychiatric: mood appropriate, affect normal CBC and BMP: 06/15/21 05:51 06/15/21 05:51 ABG, PT/INR, D-dimer: ABG ABG pH 7.424 pH Units (7.350-7.450) 06/15/21 18:35 ABG pCO2 38.9 mm Hg 06/15/21 18:35 ABG pO2 77.3 mm Hg (80.0-90.0) L 06/15/21 18:35 ABG O2 Saturation 95.9 % (95.0-99.0) 06/15/21 18:35 PT/INR, D-dimer D-Dimer 306.17 ng/mlDDU (0-234) H 06/09/21 16:03 Abnormal lab findings: Abnormal Labs 06/09/21 06/09/21 06/09/21 16:03 16:03 16:03 WBC RBC 5.66 H Hgb 15.9 H Hct 47.9 H MCV MCH RDW 15.6 H Plt Count Lymph % (Auto) [place] % (Auto) 10.8 H Lymph # (Auto) [place] # (Auto) 1.0 H Seg Neutrophils % 73.7 H Seg Neutrophils # D-Dimer 306.17 H ABG pO2 Oxyhemoglobin Sodium Creatinine Glucose 104 H POC Glucose Calcium Ferritin AST 182 H ALT 151 H Lactate Dehydrogenase C-Reactive Protein Total Protein 8.3 H Albumin Coronavirus (PCR) 06/09/21 06/09/21 06/09/21 16:03 16:03 20:47 WBC RBC Hgb Hct MCV MCH RDW Plt Count Lymph % (Auto) [place] % (Auto) Lymph # (Auto) [place] # (Auto) Seg Neutrophils % Seg Neutrophils # D-Dimer ABG pO2 Oxyhemoglobin Sodium 136 L Creatinine 0.7 L Glucose 143 H POC Glucose Calcium 8.2 L Ferritin 2377.0 H AST 152 H ALT 130 H Lactate Dehydrogenase 575 H C-Reactive Protein 6.30 H Total Protein Albumin 3.4 L Coronavirus (PCR) 06/09/21 06/10/21 06/10/21 21:45 05:05 08:42 WBC RBC Hgb Hct MCV MCH RDW Plt Count Lymph % (Auto) [place] % (Auto) Lymph # (Auto) [place] # (Auto) Seg Neutrophils % Seg Neutrophils # D-Dimer ABG pO2 Oxyhemoglobin Sodium Creatinine 0.6 L Glucose 142 H POC Glucose 158 H Calcium Ferritin AST 138 H ALT 125 H Lactate Dehydrogenase C-Reactive Protein Total Protein Albumin 3.4 L Coronavirus (PCR) Positive A 06/10/21 06/10/21 06/10/21 16:08 17:35 21:20 WBC RBC Hgb Hct MCV MCH RDW Plt Count Lymph % (Auto) [place] % (Auto) Lymph # (Auto) [place] # (Auto) Seg Neutrophils % Seg Neutrophils # D-Dimer ABG pO2 Oxyhemoglobin Sodium Creatinine Glucose POC Glucose 136 H 182 H Calcium Ferritin AST ALT Lactate Dehydrogenase C-Reactive Protein 6.80 H Total Protein Albumin Coronavirus (PCR) 06/11/21 06/11/21 06/11/21 06:12 06:12 07:53 WBC 11.8 H RBC 5.25 H Hgb Hct MCV 83 L MCH 27 L RDW 15.3 H Plt Count Lymph % (Auto) 9.5 L [place] % (Auto) 11.4 H Lymph # (Auto) 1.1 L [place] # (Auto) 1.4 H Seg Neutrophils % 79.0 H Seg Neutrophils # 9.3 H D-Dimer ABG pO2 Oxyhemoglobin Sodium Creatinine 0.6 L Glucose 144 H POC Glucose 134 H Calcium Ferritin AST 83 H ALT 119 H Lactate Dehydrogenase C-Reactive Protein Total Protein Albumin 3.2 L Coronavirus (PCR) 06/11/21 06/11/21 06/11/21 12:02 17:32 22:49 WBC RBC Hgb Hct MCV MCH RDW Plt Count Lymph % (Auto) [place] % (Auto) Lymph # (Auto) [place] # (Auto) Seg Neutrophils % Seg Neutrophils # D-Dimer ABG pO2 Oxyhemoglobin Sodium Creatinine Glucose POC Glucose 141 H 200 H 127 H Calcium Ferritin AST ALT Lactate Dehydrogenase C-Reactive Protein Total Protein Albumin Coronavirus (PCR) 06/12/21 06/12/21 06/12/21 05:57 07:45 11:25 WBC RBC Hgb Hct MCV MCH RDW Plt Count Lymph % (Auto) [place] % (Auto) Lymph # (Auto) [place] # (Auto) Seg Neutrophils % Seg Neutrophils # D-Dimer ABG pO2 Oxyhemoglobin Sodium Creatinine 0.6 L Glucose 128 H POC Glucose 119 H 129 H Calcium Ferritin AST 48 H ALT 99 H Lactate Dehydrogenase C-Reactive Protein Total Protein Albumin 3.2 L Coronavirus (PCR) 06/12/21 06/12/21 06/13/21 16:19 21:20 16:24 WBC RBC Hgb Hct MCV MCH RDW Plt Count Lymph % (Auto) [place] % (Auto) Lymph # (Auto) [place] # (Auto) Seg Neutrophils % Seg Neutrophils # D-Dimer ABG pO2 Oxyhemoglobin Sodium Creatinine Glucose POC Glucose 176 H 182 H 172 H Calcium Ferritin AST ALT Lactate Dehydrogenase C-Reactive Protein Total Protein Albumin Coronavirus (PCR) 06/13/21 06/14/21 06/14/21 21:59 12:08 18:02 WBC RBC Hgb Hct MCV MCH RDW Plt Count Lymph % (Auto) [place] % (Auto) Lymph # (Auto) [place] # (Auto) Seg Neutrophils % Seg Neutrophils # D-Dimer ABG pO2 Oxyhemoglobin Sodium Creatinine Glucose POC Glucose 226 H 124 H 193 H Calcium Ferritin AST ALT Lactate Dehydrogenase C-Reactive Protein Total Protein Albumin Coronavirus (PCR) 06/14/21 06/15/21 06/15/21 22:18 05:51 05:51 WBC 11.4 H RBC 5.43 H Hgb Hct 46.0 H MCV MCH RDW 15.4 H Plt Count 446 H Lymph % (Auto) 13.1 L [place] % (Auto) 11.8 H Lymph # (Auto) [place] # (Auto) 1.3 H Seg Neutrophils % 74.6 H Seg Neutrophils # 8.5 H D-Dimer ABG pO2 Oxyhemoglobin Sodium Creatinine 0.6 L Glucose 120 H POC Glucose 272 H Calcium Ferritin AST ALT Lactate Dehydrogenase C-Reactive Protein Total Protein Albumin Coronavirus (PCR) 06/15/21 06/15/21 06/15/21 07:58 11:43 18:28 WBC RBC Hgb Hct MCV MCH RDW Plt Count Lymph % (Auto) [place] % (Auto) Lymph # (Auto) [place] # (Auto) Seg Neutrophils % Seg Neutrophils # D-Dimer ABG pO2 Oxyhemoglobin Sodium Creatinine Glucose POC Glucose 128 H 155 H 244 H Calcium Ferritin AST ALT Lactate Dehydrogenase C-Reactive Protein Total Protein Albumin Coronavirus (PCR) 06/15/21 06/15/21 06/16/21 18:35 21:52 07:46 WBC RBC Hgb Hct MCV MCH RDW Plt Count Lymph % (Auto) [place] % (Auto) Lymph # (Auto) [place] # (Auto) Seg Neutrophils % Seg Neutrophils # D-Dimer ABG pO2 77.3 L Oxyhemoglobin 94.6 L Sodium Creatinine Glucose POC Glucose 180 H 158 H Calcium Ferritin AST ALT Lactate Dehydrogenase C-Reactive Protein Total Protein Albumin Coronavirus (PCR) 06/16/21 06/16/21 06/17/21 16:59 21:40 07:27 WBC RBC Hgb Hct MCV MCH RDW Plt Count Lymph % (Auto) [place] % (Auto) Lymph # (Auto) [place] # (Auto) Seg Neutrophils % Seg Neutrophils # D-Dimer ABG pO2 Oxyhemoglobin Sodium Creatinine Glucose POC Glucose 219 H 180 H 111 H Calcium Ferritin AST ALT Lactate Dehydrogenase C-Reactive Protein Total Protein Albumin Coronavirus (PCR)
--- NOTE | 2021-06-17 15:22 | Progress Note ---
Assessment and Plan --COVID-19 pneumonia -Patient tested positive for COVID-19 virus outpt -CXR shows patchy parenchymal disease which represent atypical pneumonia -S/p dexamethasone, azithromycin and Rocephin in the ED -Placed on dexamethasone for total 10 days and remdesivir total 5 days -Continue empiric ceftriaxone and Zithromax as procalcitonin level is elevated -Infectious disease consulted, -Droplet/contact isolation -Continue SPO2 monitoring -Supplemental oxygen as needed -Pulmonary hygiene -Prone to sleep -Vitamin C, vitamin D, zinc -Anticoagulation per protocol -Lasix IV as needed to prevent pulmonary edema --Acute hypoxic respiratory failure Empiric steroid, supplemental O2, albuterol inhalers, ABG chest x-ray per protocol, consult pulmonary --Hypertension, resume home meds, hydralazine iv to keep SBP <160 --Elevated LFTs, due to COVID PNA --Morbid obesity, associated with worse outcome for COVID --DVT prophylaxis per protocol Daily clinical course: 06/10/21: Patient remains on high flow O2, ID and pulmonary care consulted. Initiated dexamethasone and remdesivir. Patient tested positive for COVID-19. Continue to follow inflammatory markers. Guarded prognosis. 06/11/21: Remains on high flow O2, continue dexamethasone and remdesivir. Follow inflammatory markers, wean off O2 as tolerated. Trend LFT. Guarded prognosis. 06/12/21: Patient remains on high flow 100% FiO2, follow inflammatory markers, continue dexamethasone remdesivir. Guarded prognosis. ID following. 06/13/21: Remains on high flow O2: HFNC 100%/30L. cont to follow inflammatory markers, 06/14/21: unable to wean off from high flow O2, follow inflammatory markers. Guarded prognosis. 06/15/21: Remains on high flow O2, continue to follow inflammatory markers. ID and pulmonary following. Guarded prognosis. Completed remdesivir. 06/16/21: Continue to follow inflammatory markers, patient remains on high flow O2, guarded prognosis. 06/17/21: Remains on high flow O2, continue to follow inflammatory markers Subjective Date of service: 06/17/21 Interval history: Patient seen and examined. Medical records and medication list reviewed. No acute event overnight noted by the RN. Patient placed on high flow O2 Discussed plan of care at bedside with patient. Objective - Exam Narrative Exam: Limited physical exam due to COVID-19 pandemic to minimize transmission of the disease and to preserve PPE. Vital reviewed and stable. GENERAL: well-developed obese male lying on bed appeared to be in no discomfort. HEENT: Normocephalic. Atraumatic. NECK: Supple. CHEST/LUNGS: breathing nonlabored with high flow O2. HEART/CARDIOVASCULAR: Heart rate stable on telemetry ABDOMEN: Visibly not distended SKIN: There is no rash NEURO: No focal motor deficit. Follows command. MUSCULOSKELETAL: No joint effusion EXTRIMITY: No swelling, no cyanosis or clubbing. PSYCH: Cooperative. - Constitutional Vitals: Vital Signs - 12hr 06/17/21 06/17/21 06/17/21 06:47 10:15 11:38 Temperature 98.1 F 98.1 F Pulse Rate 58 L Respiratory 20 18 Rate Blood Pressure 132/72 117/73 O2 Sat by Pulse 92 94 Oximetry 06/17/21 14:15 Temperature Pulse Rate Respiratory Rate Blood Pressure O2 Sat by Pulse 93 Oximetry - Labs CBC & Chem 7: 06/15/21 05:51 06/15/21 05:51 Labs: Abnormal lab results 06/16/21 06/16/21 06/17/21 Range/Units 16:59 21:40 07:27 POC Glucose 219 H 180 H 111 H (70-105) mg/dL
--- NOTE | 2021-06-17 16:20 | Progress Note ---
Assessment and Plan Cultures: Blood culture no growth today SARS CoV2 PCR positive Assessment: 55-year-old male with history of hypertension and morbid obesity, admitted on 06/09/2021 secondary to 8-day history of body aches, generalized malaise, cough and shortness of breath: #Severe COVID pneumonia: CXR with bilateral patchy infiltrates. Infllammatory m arkers elevated CRP of 6.3-->0.6. Procalcitonin elevated at 0.7. #Acute hypoxemic respiratory failure: Remains on HFNC, 30 L, 85%. #Elevated LFTs: from COVID. Improving. #Morbid obesity: Associated with worse outcomes. BMI 42. Recommendations: -Continue steroids daily for 10 days -Completed remdesivir -Completed ceftriaxone/azithromycin. -Monitor inflammatory markers - ferritin, Ddimer, CRP, LDH -Continue anticoagulation per System Protocol -Prone positioning as possible Will follow Addie Kay MD Infectious Diseases Head Athletic Trainer [facility], [place], [facility] ([facility]) M [phone] O [phone] Subjective Date of service: 06/17/21 Interval history: Remains on HF no desaturation Objective - Exam Narrative Exam: Physical exam deferred to minimize COVID-19 transmission during pandemic. - Constitutional Vitals: Vital Signs Temp Pulse Resp BP Pulse Ox 98.1 F 58 L 18 117/73 93 06/17/21 11:38 06/17/21 11:38 06/17/21 11:38 06/17/21 11:38 06/17/21 14:15 Temperature -Last 24 Hours Temperature 98.1 F Temperature 98.1 F Temperature 97.6 F - Labs CBC & Chem 7: 06/15/21 05:51 06/15/21 05:51 Labs: Abnormal lab results 06/16/21 06/16/21 06/17/21 Range/Units 16:59 21:40 07:27 POC Glucose 219 H 180 H 111 H (70-105) mg/dL
[2021-06-17 17:45] LABS: C-Reactive Protein 0.2 mg/dL (0.00-1.30)
--- NOTE | 2021-06-18 02:17 | Vascular Lab Report ---
DUPLEX DOPPLER LOWER EXTREMITY VEINS, BILATERAL INDICATION / CLINICAL INFORMATION: COVID. TECHNIQUE: Duplex doppler imaging was performed through the veins of both lower extremities using venous sae stepan and other maneuvers. COMPARISON: None available. FINDINGS: RIGHT COMMON FEMORAL VEIN: Negative. RIGHT FEMORAL VEIN: Negative. RIGHT POPLITEAL VEIN: Negative. RIGHT CALF VEINS: Negative. LEFT COMMON FEMORAL VEIN: Negative. LEFT FEMORAL VEIN: Negative. LEFT POPLITEAL VEIN: Negative. LEFT CALF VEINS: Negative. ADDITIONAL FINDINGS: None. IMPRESSION: 1. No sonographic evidence for DVT in either lower extremity. Signer Name: Niranjan Gutierrez MD Signed: 06/18/2021 2:13 AM Workstation Name: [id number]
[2021-06-18] MEDS: HEPARIN 5,000 UNIT/1 ML VIAL SUB-Q SCH ×3 (05:36→22:55)
--- NOTE | 2021-06-18 08:48 | Progress Note ---
Assessment and Plan Cultures: Blood culture no growth today SARS CoV2 PCR positive Assessment: 55-year-old male with history of hypertension and morbid obesity, admitted on 06/09/2021 secondary to 8-day history of body aches, generalized malaise, cough and shortness of breath: #Severe COVID pneumonia: CXR with bilateral patchy infiltrates. Infllammatory m arkers elevated CRP of 6.3-->0.6. Procalcitonin elevated at 0.7. #Acute hypoxemic respiratory failure: Remains on HFNC, 30 L, 85%. #Elevated LFTs: from COVID. Improving. #Morbid obesity: Associated with worse outcomes. BMI 42. Recommendations: -Continue steroids daily for 10 days -Completed remdesivir -Completed ceftriaxone/azithromycin. -Monitor inflammatory markers - ferritin, Ddimer, CRP, LDH -Continue anticoagulation per System Protocol -Prone positioning as possible -Pulmonary on board Will follow Addie Kay MD Infectious Diseases Certified Physician Assistant [facility] ([facility]) M [phone] O [phone] Subjective Date of service: 06/18/21 Interval history: Patient remains on high flow nasal cannula 30 L, 85%, O2 sats over 94%. No fever. Objective - Exam Narrative Exam: Physical exam deferred to minimize COVID-19 transmission during pandemic. - Constitutional Vitals: Vital Signs Temp Pulse Resp BP Pulse Ox 98.2 F 53 L 18 116/61 97 06/18/21 05:00 06/18/21 05:00 06/18/21 05:00 06/18/21 05:00 06/18/21 05:23 Temperature -Last 24 Hours Temperature 98.2 F Temperature 97.8 F Temperature 98.9 F Temperature 98.1 F - Labs CBC & Chem 7: 06/15/21 05:51 06/15/21 05:51 Labs: Abnormal lab results 06/17/21 06/17/21 06/17/21 Range/Units 15:30 15:30 16:24 POC Glucose 163 H (70-105) mg/dL Ferritin 896.9 H (30.0-300.0) ng/mL Lactate Dehydrogenase 233 H (91-180) units/L 06/17/21 06/18/21 Range/Units 21:29 07:43 POC Glucose 218 H 107 H (70-105) mg/dL Ferritin (30.0-300.0) ng/mL Lactate Dehydrogenase (91-180) units/L
[2021-06-18] MEDS: INSULIN REGULAR, HUMAN 100 UNITS/1 ML SUB-Q SCH ×4 (09:00→22:54)
[2021-06-18] MEDS: ASCORBIC ACID 500 MG TAB PO SCH ×2 (10:49→22:54)
[2021-06-18] MEDS: CHOLECALCIFEROL (VIT D3) 5,000 UNIT TAB PO SCH (10:49)
[2021-06-18] MEDS: FAMOTIDINE 10 MG TAB PO SCH ×2 (10:49→22:54)
[2021-06-18] MEDS: ZINC SULFATE 220 MG CAP PO SCH ×2 (10:50→22:54)
[2021-06-18] MEDS: DEXAMETHASONE 2 MG TAB PO SCH (10:50)
--- NOTE | 2021-06-18 15:39 | Progress Note ---
Assessment and Plan 55-year-old male who tested positive for COVID 19 as outpt with history of hypertension and morbid obesity, admitted on 06/09/2021 secondary to 8-day history of body aches, generalized malaise, cough and shortness of breath: A/P --COVID-19 pneumonia -Patient tested positive for COVID-19 virus outpt -CXR shows patchy parenchymal disease which represent atypical pneumonia -S/p dexamethasone, azithromycin and Rocephin in the ED -Placed on dexamethasone for total 10 days and remdesivir total 5 days -Continue empiric ceftriaxone and Zithromax as procalcitonin level is elevated -Infectious disease consulted, -Droplet/contact isolation -Continue SPO2 monitoring -Supplemental oxygen as needed -Pulmonary hygiene -Prone to sleep -Vitamin C, vitamin D, zinc -Anticoagulation per protocol -Lasix IV as needed to prevent pulmonary edema --Acute hypoxic respiratory failure Empiric steroid, supplemental O2, albuterol inhalers, ABG chest x-ray per protocol, consult pulmonary --Hypertension, resume home meds, hydralazine iv to keep SBP <160 --Elevated LFTs, due to COVID PNA --Morbid obesity, associated with worse outcome for COVID --DVT prophylaxis per protocol Daily clinical course: 06/10/21: Patient remains on high flow O2, ID and pulmonary care consulted. Initiated dexamethasone and remdesivir. Patient tested positive for COVID-19. Continue to follow inflammatory markers. Guarded prognosis. 06/11/21: Remains on high flow O2, continue dexamethasone and remdesivir. Follow inflammatory markers, wean off O2 as tolerated. Trend LFT. Guarded prognosis. 06/12/21: Patient remains on high flow 100% FiO2, follow inflammatory markers, continue dexamethasone remdesivir. Guarded prognosis. ID following. 06/13/21: Remains on high flow O2: HFNC 100%/30L. cont to follow inflammatory markers, 06/14/21: unable to wean off from high flow O2, follow inflammatory markers. Guarded prognosis. 06/15/21: Remains on high flow O2, continue to follow inflammatory markers. ID and pulmonary following. Guarded prognosis. Completed remdesivir. 06/16/21: Continue to follow inflammatory markers, patient remains on high flow O2, guarded prognosis. 06/17/21: Remains on high flow O2, continue to follow inflammatory markers 06/18/21: Continue to follow inflammatory markers, patient remains on high flow O2, guarded prognosis. BP stable Subjective Date of service: 06/18/21 Interval history: Patient seen and examined. Medical records and medication list reviewed. No acute event overnight noted by the RN. Patient placed on high flow O2 Discussed plan of care at bedside with patient. Objective - Exam Narrative Exam: Limited physical exam due to COVID-19 pandemic to minimize transmission of the disease and to preserve PPE. Vital reviewed and stable. GENERAL: well-developed obese male sitting on bed appeared to be in no discomfort. HEENT: Normocephalic. Atraumatic. NECK: Supple. CHEST/LUNGS: breathing nonlabored with high flow O2. HEART/CARDIOVASCULAR: Heart rate stable on telemetry ABDOMEN: Visibly not distended SKIN: There is no rash NEURO: No focal motor deficit. Follows command. MUSCULOSKELETAL: No joint effusion EXTRIMITY: No swelling, no cyanosis or clubbing. PSYCH: Cooperative. - Constitutional Vitals: Vital Signs - 12hr 06/18/21 06/18/21 06/18/21 05:00 05:23 08:00 Temperature 98.2 F Pulse Rate 53 L Respiratory 18 Rate Blood Pressure Blood Pressure 116/61 [Right] O2 Sat by Pulse 98 97 94 Oximetry 06/18/21 11:48 Temperature 98.8 F Pulse Rate 59 L Respiratory 24 Rate Blood Pressure 115/65 Blood Pressure [Right] O2 Sat by Pulse 95 Oximetry - Labs CBC & Chem 7: 06/15/21 05:51 06/15/21 05:51 Labs: Abnormal lab results 06/17/21 06/17/21 06/17/21 Range/Units 15:30 15:30 16:24 POC Glucose 163 H (70-105) mg/dL Ferritin 896.9 H (30.0-300.0) ng/mL Lactate Dehydrogenase 233 H (91-180) units/L 06/17/21 06/18/21 06/18/21 Range/Units 21:29 07:43 11:46 POC Glucose 218 H 107 H 106 H (70-105) mg/dL Ferritin (30.0-300.0) ng/mL Lactate Dehydrogenase (91-180) units/L
--- NOTE | 2021-06-18 17:52 | Progress Note ---
Assessment and Plan Patient is 55 years old male Morbidley Obese,with history of hypertension presented to the ER complaining of difficulty in breathing, cough and generalized weakness for the last 8 days. Patient stated that he was diagnosed with COVID-19 5 days ago after his son was diagnosed with COVID-19 few days before that. Patient found to have an oxygen saturation of 88% on room air improved improved to 92% on 5 L. On arrival, temperature 99.4, HR 86, BP 146/77, RR 30, CXR showed b/l infiltrates. Patient being admitted for further e valuation and management. Patient has history smoking long time ago. Stopped smoking many years ago. Occassional alcohol. 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 Patient alert, awake and is still on Vapotherm, FIO2 85%. O2 saturation running 95%. Patient denies chest pain, shortness of breath or cough. Recommend to decrease FIO2 to 75% and maintain o2 saturation above 90% Patient afebrile.Has mild leukocytosis. Blood pressure 127/79, Pulse 68. Patients inflammatory markers Serum Ferritin 896.9 LDH 233 CRP .20 D dimer 149.11 Chest xray obtained 06/15/21 reported Patchy parenchymal opacities in both mid to lower lung zones have not changed significantly. Ultrasound of lower extremity 06/16/21 reported No sonographic evidence for DVT i n either lower extremity. Patient presently on Dexamethasone, S/C heparin, Famotidine. I spent critical care time of 33 minutes, reviewing the chart, examine the patient, review the labs, talking to the respiratory and nursing staff and work out plan of treatment in this COVID positive patient with COVID pneumonia and acute hypoxic respiratory failure. - Patient Problems (1) Acute respiratory failure with hypoxia Current Visit: Yes Status: Acute Plan to address problem: Vapotherm, FIO2 85% Continue Dexamethasone Continue S/C heparin Continue famotidine. Recommend Prone positioning. (2) Bilateral pneumonia Current Visit: Yes Status: Acute Plan to address problem: Antibiotics as per ID. (3) Coronavirus infection Current Visit: Yes Status: Acute Plan to address problem: Management as per infectious diseases. Subjective Date of service: 06/18/21 Interval history: Patient is 55 years old male Morbidley Obese,with history of hypertension presented to the ER complaining of difficulty in breathing, cough and generalized weakness for the last 8 days. Patient stated that he was diagnosed with COVID-19 5 days ago after his son was diagnosed with COVID-19 few days before that. Patient found to have an oxygen saturation of 88% on room air improved improved to 92% on 5 L. On arrival, temperature 99.4, HR 86, BP 146/77, RR 30, CXR showed b/l infiltrates. Patient being admitted for further evaluation and management. Patient has history smoking long time ago. Stopped smoking many years ago. Occassional alcohol. 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 Patient alert, awake and is still on Vapotherm, FIO2 85%. O2 saturation running 95%. Patient denies chest pain, shortness of breath or cough. Recommend to decrease FIO2 to 75% and maintain o2 saturation above 90% Patient afebrile.Has mild leukocytosis. Blood pressure 127/79, Pulse 68. Patients inflammatory markers Serum Ferritin 896.9 LDH 233 CRP .20 D dimer 149.11 Chest xray obtained 06/15/21 reported Patchy parenchymal opacities in both mid to lower lung zones have not changed significantly. Ultrasound of lower extremity 06/16/21 reported No sonographic evidence for DVT in either lower extremity. Patient presently on Dexamethasone, S/C heparin, Famotidine. Objective Vital Signs - 12hr 06/18/21 06/18/21 06/18/21 08:00 11:48 14:00 Temperature 98.8 F Pulse Rate 59 L Respiratory 24 Rate Blood Pressure 115/65 O2 Sat by Pulse 94 95 94 Oximetry Constitutional: no acute distress, alert, other (morbidly obese on high flow oxygen therapy) Eyes: non-icteric ENT: oropharynx moist Neck: supple, no lymphadenopathy, no JVD Effort: mildly labored Ascultation: Bilateral: diminished breath sounds Cardiovascular: regular rate and rhythm, other (S1,S2) Gastrointestinal: normoactive bowel sounds, soft, non-tender, non-distended, other (obese) Integumentary: normal Extremities: no cyanosis, no edema, pulses normal Neurologic: normal mental status, non-focal exam, pupils equal and round, CN II- XII normal, motor strength normal and Psychiatric: mood appropriate, affect normal CBC and BMP: 06/15/21 05:51 06/15/21 05:51 ABG, PT/INR, D-dimer: ABG ABG pH 7.424 pH Units (7.350-7.450) 06/15/21 18:35 ABG pCO2 38.9 mm Hg 06/15/21 18:35 ABG pO2 77.3 mm Hg (80.0-90.0) L 06/15/21 18:35 ABG O2 Saturation 95.9 % (95.0-99.0) 06/15/21 18:35 PT/INR, D-dimer D-Dimer 149.11 ng/mlDDU (0-234) 06/17/21 15:30 Abnormal lab findings: Abnormal Labs 06/09/21 06/09/21 06/09/21 16:03 16:03 16:03 WBC RBC 5.66 H Hgb 15.9 H Hct 47.9 H MCV MCH RDW 15.6 H Plt Count Lymph % (Auto) Dewitt % (Auto) 10.8 H Lymph # (Auto) Dewitt # (Auto) 1.0 H Seg Neutrophils % 73.7 H Seg Neutrophils # D-Dimer 306.17 H ABG pO2 Oxyhemoglobin Sodium Creatinine Glucose 104 H POC Glucose Calcium Ferritin AST 182 H ALT 151 H Lactate Dehydrogenase C-Reactive Protein Total Protein 8.3 H Albumin Coronavirus (PCR) 06/09/21 06/09/21 06/09/21 16:03 16:03 20:47 WBC RBC Hgb Hct MCV MCH RDW Plt Count Lymph % (Auto) Dewitt % (Auto) Lymph # (Auto) Dewitt # (Auto) Seg Neutrophils % Seg Neutrophils # D-Dimer ABG pO2 Oxyhemoglobin Sodium 136 L Creatinine 0.7 L Glucose 143 H POC Glucose Calcium 8.2 L Ferritin 2377.0 H AST 152 H ALT 130 H Lactate Dehydrogenase 575 H C-Reactive Protein 6.30 H Total Protein Albumin 3.4 L Coronavirus (PCR) 06/09/21 06/10/21 06/10/21 21:45 05:05 08:42 WBC RBC Hgb Hct MCV MCH RDW Plt Count Lymph % (Auto) Dewitt % (Auto) Lymph # (Auto) Dewitt # (Auto) Seg Neutrophils % Seg Neutrophils # D-Dimer ABG pO2 Oxyhemoglobin Sodium Creatinine 0.6 L Glucose 142 H POC Glucose 158 H Calcium Ferritin AST 138 H ALT 125 H Lactate Dehydrogenase C-Reactive Protein Total Protein Albumin 3.4 L Coronavirus (PCR) Positive A 06/10/21 06/10/21 06/10/21 16:08 17:35 21:20 WBC RBC Hgb Hct MCV MCH RDW Plt Count Lymph % (Auto) Dewitt % (Auto) Lymph # (Auto) [place] # (Auto) Seg Neutrophils % Seg Neutrophils # D-Dimer ABG pO2 Oxyhemoglobin Sodium Creatinine Glucose POC Glucose 136 H 182 H Calcium Ferritin AST ALT Lactate Dehydrogenase C-Reactive Protein 6.80 H Total Protein Albumin Coronavirus (PCR) 06/11/21 06/11/21 06/11/21 06:12 06:12 07:53 WBC 11.8 H RBC 5.25 H Hgb Hct MCV 83 L MCH 27 L RDW 15.3 H Plt Count Lymph % (Auto) 9.5 L Dewitt % (Auto) 11.4 H Lymph # (Auto) 1.1 L [place]itt # (Auto) 1.4 H Seg Neutrophils % 79.0 H Seg Neutrophils # 9.3 H D-Dimer ABG pO2 Oxyhemoglobin Sodium Creatinine 0.6 L Glucose 144 H POC Glucose 134 H Calcium Ferritin AST 83 H ALT 119 H Lactate Dehydrogenase C-Reactive Protein Total Protein Albumin 3.2 L Coronavirus (PCR) 06/11/21 06/11/21 06/11/21 12:02 17:32 22:49 WBC RBC Hgb Hct MCV MCH RDW Plt Count Lymph % (Auto) Dewitt % (Auto) Lymph # (Auto) [place] # (Auto) Seg Neutrophils % Seg Neutrophils # D-Dimer ABG pO2 Oxyhemoglobin Sodium Creatinine Glucose POC Glucose 141 H 200 H 127 H Calcium Ferritin AST ALT Lactate Dehydrogenase C-Reactive Protein Total Protein Albumin Coronavirus (PCR) 06/12/21 06/12/21 06/12/21 05:57 07:45 11:25 WBC RBC Hgb Hct MCV MCH RDW Plt Count Lymph % (Auto) Dewitt % (Auto) Lymph # (Auto) [place]itt # (Auto) Seg Neutrophils % Seg Neutrophils # D-Dimer ABG pO2 Oxyhemoglobin Sodium Creatinine 0.6 L Glucose 128 H POC Glucose 119 H 129 H Calcium Ferritin AST 48 H ALT 99 H Lactate Dehydrogenase C-Reactive Protein Total Protein Albumin 3.2 L Coronavirus (PCR) 06/12/21 06/12/21 06/13/21 16:19 21:20 16:24 WBC RBC Hgb Hct MCV MCH RDW Plt Count Lymph % (Auto) Dewitt % (Auto) Lymph # (Auto) [place]itt # (Auto) Seg Neutrophils % Seg Neutrophils # D-Dimer ABG pO2 Oxyhemoglobin Sodium Creatinine Glucose POC Glucose 176 H 182 H 172 H Calcium Ferritin AST ALT Lactate Dehydrogenase C-Reactive Protein Total Protein Albumin Coronavirus (PCR) 06/13/21 06/14/21 06/14/21 21:59 12:08 18:02 WBC RBC Hgb Hct MCV MCH RDW Plt Count Lymph % (Auto) Dewitt % (Auto) Lymph # (Auto) [place]itt # (Auto) Seg Neutrophils % Seg Neutrophils # D-Dimer ABG pO2 Oxyhemoglobin Sodium Creatinine Glucose POC Glucose 226 H 124 H 193 H Calcium Ferritin AST ALT Lactate Dehydrogenase C-Reactive Protein Total Protein Albumin Coronavirus (PCR) 06/14/21 06/15/21 06/15/21 22:18 05:51 05:51 WBC 11.4 H RBC 5.43 H Hgb Hct 46.0 H MCV MCH RDW 15.4 H Plt Count 446 H Lymph % (Auto) 13.1 L Dewitt % (Auto) 11.8 H Lymph # (Auto) Dewitt # (Auto) 1.3 H Seg Neutrophils % 74.6 H Seg Neutrophils # 8.5 H D-Dimer ABG pO2 Oxyhemoglobin Sodium Creatinine 0.6 L Glucose 120 H POC Glucose 272 H Calcium Ferritin AST ALT Lactate Dehydrogenase C-Reactive Protein Total Protein Albumin Coronavirus (PCR) 06/15/21 06/15/21 06/15/21 07:58 11:43 18:28 WBC RBC Hgb Hct MCV MCH RDW Plt Count Lymph % (Auto) Dewitt % (Auto) Lymph # (Auto) Dewitt # (Auto) Seg Neutrophils % Seg Neutrophils # D-Dimer ABG pO2 Oxyhemoglobin Sodium Creatinine Glucose POC Glucose 128 H 155 H 244 H Calcium Ferritin AST ALT Lactate Dehydrogenase C-Reactive Protein Total Protein Albumin Coronavirus (PCR) 06/15/21 06/15/21 06/16/21 18:35 21:52 07:46 WBC RBC Hgb Hct MCV MCH RDW Plt Count Lymph % (Auto) Dewitt % (Auto) Lymph # (Auto) Dewitt # (Auto) Seg Neutrophils % Seg Neutrophils # D-Dimer ABG pO2 77.3 L Oxyhemoglobin 94.6 L Sodium Creatinine Glucose POC Glucose 180 H 158 H Calcium Ferritin AST ALT Lactate Dehydrogenase C-Reactive Protein Total Protein Albumin Coronavirus (PCR) 06/16/21 06/16/21 06/17/21 16:59 21:40 07:27 WBC RBC Hgb Hct MCV MCH RDW Plt Count Lymph % (Auto) Dewitt % (Auto) Lymph # (Auto) Dewitt # (Auto) Seg Neutrophils % Seg Neutrophils # D-Dimer ABG pO2 Oxyhemoglobin Sodium Creatinine Glucose POC Glucose 219 H 180 H 111 H Calcium Ferritin AST ALT Lactate Dehydrogenase C-Reactive Protein Total Protein Albumin Coronavirus (PCR) 06/17/21 06/17/21 06/17/21 15:30 15:30 16:24 WBC RBC Hgb Hct MCV MCH RDW Plt Count Lymph % (Auto) Dewitt % (Auto) Lymph # (Auto) [place] # (Auto) Seg Neutrophils % Seg Neutrophils # D-Dimer ABG pO2 Oxyhemoglobin Sodium Creatinine Glucose POC Glucose 163 H Calcium Ferritin 896.9 H AST ALT Lactate Dehydrogenase 233 H C-Reactive Protein Total Protein Albumin Coronavirus (PCR) 06/17/21 06/18/21 06/18/21 21:29 07:43 11:46 WBC RBC Hgb Hct MCV MCH RDW Plt Count Lymph % (Auto) Dewitt % (Auto) Lymph # (Auto) Dewitt # (Auto) Seg Neutrophils % Seg Neutrophils # D-Dimer ABG pO2 Oxyhemoglobin Sodium Creatinine Glucose POC Glucose 218 H 107 H 106 H Calcium Ferritin AST ALT Lactate Dehydrogenase C-Reactive Protein Total Protein Albumin Coronavirus (PCR) 06/18/21 17:09 WBC RBC Hgb Hct MCV MCH RDW Plt Count Lymph % (Auto) Dewitt % (Auto) Lymph # (Auto) Dewitt # (Auto) Seg Neutrophils % Seg Neutrophils # D-Dimer ABG pO2 Oxyhemoglobin Sodium Creatinine Glucose POC Glucose 214 H Calcium Ferritin AST ALT Lactate Dehydrogenase C-Reactive Protein Total Protein Albumin Coronavirus (PCR) Prior PFT's, U/S of legs: report reviewed, image reviewed Additional Studies: DUPLEX DOPPLER LOWER EXTREMITY VEINS, BILATERAL 06/16/21 INDICATION / CLINICAL INFORMATION: COVID. TECHNIQUE: Duplex doppler imaging was performed through the veins of both lower extremities using venous compression and other maneuvers. COMPARISON: None available. FINDINGS: RIGHT COMMON FEMORAL VEIN: Negative. RIGHT FEMORAL VEIN: Negative. RIGHT POPLITEAL VEIN: Negative. RIGHT CALF VEINS: Negative. LEFT COMMON FEMORAL VEIN: Negative. LEFT FEMORAL VEIN: Negative. LEFT POPLITEAL VEIN: Negative. LEFT CALF VEINS: Negative. ADDITIONAL FINDINGS: None. IMPRESSION: 1. No sonographic evidence for DVT in either lower extremity.
[2021-06-19] MEDS: HEPARIN 5,000 UNIT/1 ML VIAL SUB-Q SCH ×3 (06:29→22:34)
--- NOTE | 2021-06-19 08:29 | Progress Note ---
Assessment and Plan Assessment and plan: 55-year-old male who tested positive for COVID 19 as outpt with history of hypertension and morbid obesity, admitted on 06/09/2021 secondary to 8-day history of body aches, generalized malaise, cough and shortness of breath: A/P --COVID-19 pneumonia -Patient tested positive for COVID-19 virus outpt -CXR shows patchy parenchymal disease which represent atypical pneumonia -S/p dexamethasone, azithromycin and Rocephin in the ED -Placed on dexamethasone for total 10 days and remdesivir total 5 days -Continue empiric ceftriaxone and Zithromax as procalcitonin level is elevated -Infectious disease consulted, -Droplet/contact isolation -Continue SPO2 monitoring -Supplemental oxygen as needed -Pulmonary hygiene -Prone to sleep -Vitamin C, vitamin D, zinc -Anticoagulation per protocol -Lasix IV as needed to prevent pulmonary edema --Acute hypoxic respiratory failure Empiric steroid, supplemental O2, albuterol inhalers, ABG chest x-ray per protocol, consult pulmonary --Hypertension, resume home meds, hydralazine iv to keep SBP <160 --Elevated LFTs, due to COVID PNA --Morbid obesity, associated with worse outcome for COVID --DVT prophylaxis per protocol Daily clinical course: 06/10/21: Patient remains on high flow O2, ID and pulmonary care consulted. Initiated dexamethasone and remdesivir. Patient tested positive for COVID-19. Continue to follow inflammatory markers. Guarded prognosis. 06/11/21: Remains on high flow O2, continue dexamethasone and remdesivir. Follow inflammatory markers, wean off O2 as tolerated. Trend LFT. Guarded prognosis. 06/12/21: Patient remains on high flow 100% FiO2, follow inflammatory markers, continue dexamethasone remdesivir. Guarded prognosis. ID following. 06/13/21: Remains on high flow O2: HFNC 100%/30L. cont to follow inflammatory markers, 06/14/21: unable to wean off from high flow O2, follow inflammatory markers. Guarded prognosis. 06/15/21: Remains on high flow O2, continue to follow inflammatory markers. ID and pulmonary following. Guarded prognosis. Completed remdesivir. 06/16/21: Continue to follow inflammatory markers, patient remains on high flow O2, guarded prognosis. 06/17/21: Remains on high flow O2, continue to follow inflammatory markers 06/18/21: Continue to follow inflammatory markers, patient remains on high flow O2, guarded prognosis. BP stable 06/19; patient is on 30 L of high flow oxygen with FiO2 of 60%. ID and pulmonary consult appreciated. Prognosis is guarded. History Interval history: Patient was seen and evaluated this morning Patient was on 30 L of high flow oxygen, with FiO2 of 60% Patient said he is breathing better Hospitalist Physical - Physical exam Narrative exam: Not in cardiopulmonary distress. The patient is morbidly obese Vital signs as documented. Head exam is unremarkable. No scleral icterus . Neck is without jugular venous distension, thyromegaly, or carotid bruits. Lungs decreased air entry Cardiac exam reveals regular rate and Rhythm. Abdominal exam reveals normal bowel sounds, nontender, no organomegaly. Extremities are nonedematous and both femoral and pedal pulses are normal. [employer]: Alert and oriented 3. No focal weakness. - Constitutional Vitals: Temp Pulse Resp BP Pulse Ox 97.5 F L 56 L 18 131/81 95 06/19/21 04:30 06/19/21 04:30 06/19/21 04:30 06/19/21 04:30 06/19/21 04:30 Results - Labs CBC & Chem 7: 06/15/21 05:51 06/15/21 05:51 Labs: Laboratory Last Values WBC 11.4 K/mm3 (4.5-11.0) H 06/15/21 05:51 RBC 5.43 M/mm3 (3.65-5.03) H 06/15/21 05:51 Hgb 15.1 gm/dl (11.8-15.2) 06/15/21 05:51 Hct 46.0 % (35.5-45.6) H 06/15/21 05:51 MCV 85 fl (84-94) 06/15/21 05:51 MCH 28 pg (28-32) 06/15/21 05:51 MCHC 33 % (32-34) 06/15/21 05:51 RDW 15.4 % (13.2-15.2) H 06/15/21 05:51 Plt Count 446 K/mm3 (140-440) H 06/15/21 05:51 Lymph % (Auto) 13.1 % (13.4-35.0) L 06/15/21 05:51 [place] % (Auto) 11.8 % (0.0-7.3) H 06/15/21 05:51 Eos % (Auto) 0.4 % (0.0-4.3) 06/15/21 05:51 Baso % (Auto) 0.1 % (0.0-1.8) 06/15/21 05:51 Lymph # (Auto) 1.5 K/mm3 (1.2-5.4) 06/15/21 05:51 [place] # (Auto) 1.3 K/mm3 (0.0-0.8) H 06/15/21 05:51 Eos # (Auto) 0.0 K/mm3 (0.0-0.4) 06/15/21 05:51 Baso # (Auto) 0.0 K/mm3 (0.0-0.1) 06/15/21 05:51 Seg Neutrophils % 74.6 % (40.0-70.0) H 06/15/21 05:51 Seg Neutrophils # 8.5 K/mm3 (1.8-7.7) H 06/15/21 05:51 D-Dimer 149.11 ng/mlDDU (0-234) 06/17/21 15:30 ABG pH 7.424 pH Units (7.350-7.450) 06/15/21 18:35 ABG pCO2 38.9 mm Hg 06/15/21 18:35 ABG pO2 77.3 mm Hg (80.0-90.0) L 06/15/21 18:35 ABG HCO3 24.9 mmol/L (20.0-26.0) 06/15/21 18:35 ABG O2 Saturation 95.9 % (95.0-99.0) 06/15/21 18:35 ABG O2 Content 21.3 (0.0-44) 06/15/21 18:35 ABG Base Excess 0.7 mmol/L (-2.0-3.0) 06/15/21 18:35 ABG Hemoglobin 16.0 gm/dl (14.0-18.0) 06/15/21 18:35 ABG Carboxyhemoglobin 0.9 % (0.0-5.0) 06/15/21 18:35 ABG Methemoglobin 0.5 % (0.0-1.5) 06/15/21 18:35 Oxyhemoglobin 94.6 % (95.0-99.0) L 06/15/21 18:35 FiO2 85 % 06/15/21 18:35 Sodium 139 mmol/L (137-145) 06/15/21 05:51 Potassium 4.1 mmol/L (3.6-5.0) 06/15/21 05:51 Chloride 104.6 mmol/L (98-107) 06/15/21 05:51 Carbon Dioxide 27 mmol/L (22-30) 06/15/21 05:51 Anion Gap 12 mmol/L 06/15/21 05:51 BUN 17 mg/dL (9-20) 06/15/21 05:51 Creatinine 0.6 mg/dL (0.8-1.3) L 06/15/21 05:51 Estimated GFR > 60 ml/min 06/15/21 05:51 BUN/Creatinine Ratio 28 % 06/15/21 05:51 Glucose 120 mg/dL (75-100) H 06/15/21 05:51 POC Glucose 153 mg/dL (70-105) H 06/19/21 07:46 Calcium 9.1 mg/dL (8.4-10.2) 06/15/21 05:51 Ferritin 896.9 ng/mL (30.0-300.0) H 06/17/21 15:30 Total Bilirubin 0.50 mg/dL (0.1-1.2) 06/12/21 05:57 AST 48 units/L (5-40) H 06/12/21 05:57 ALT 99 units/L (7-56) H 06/12/21 05:57 Alkaline Phosphatase 84 units/L (35-129) 06/12/21 05:57 Lactate Dehydrogenase 233 units/L (91-180) H 06/17/21 15:30 C-Reactive Protein 0.20 mg/dL (0.00-1.30) 06/17/21 15:30 Total Protein 7.2 g/dL (6.3-8.2) 06/12/21 05:57 Albumin 3.2 g/dL (3.9-5) L 06/12/21 05:57 Albumin/Globulin Ratio 0.8 % 06/12/21 05:57 Procalcitonin < 0.05 ng/mL (<0.15) 06/17/21 15:30 Coronavirus (PCR) Positive (Negative) A 06/10/21 08:42 Stacy/IV: Voiding Method Urinal Active Medications - Current Medications Current Medications: Generic Name Dose Route Start Last Admin Trade Name Freq PRN Reason Stop Dose Admin Acetaminophen 650 mg 06/09/21 17:43 Acetaminophen 325 Mg Tab PO Q4H PRN Pain MILD(1-3)/Fever >100.5/JOYCE Hydrocodone Bitart/Acetaminophen 2 each 06/09/21 17:43 Hydrocodone/Acetaminophen 5-325 Mg Tab PO Q6H PRN Pain, Moderate (4-6) Ascorbic Acid 1,000 mg 06/09/21 22:00 06/18/21 22:54 Ascorbic Acid 500 Mg Tab PO 1,000 mg BID LYSSA Administration Cholecalciferol 5,000 unit 06/10/21 10:00 06/18/21 10:49 Cholecalciferol (Vit D3) 5,000 Unit Tab PO 5,000 unit DAILY LYSSA Administration Famotidine 10 mg 06/09/21 22:00 06/18/21 22:54 Famotidine 10 Mg Tab PO 10 mg BID LYSSA Administration Heparin Sodium (Porcine) 5,000 unit 06/09/21 22:00 06/19/21 06:29 Heparin 5,000 Unit/1 Ml Vial SUB-Q 5,000 unit Q8HR LYSSA Administration Hydralazine HCl 5 mg 06/09/21 17:43 06/15/21 18:55 Hydralazine 20 Mg/1 Ml Inj IV 5 mg Q30MIN PRN Administration Hypertension Insulin Human Regular 0 units 06/09/21 22:00 06/18/21 22:54 Insulin Regular, Human 100 Units/1 Ml SUB-Q 2 units ACHS LYSSA Administration Protocol Ondansetron HCl 4 mg 06/09/21 17:43 Ondansetron 4 Mg/2 Ml Inj IV Q8H PRN N/V unrelieved by Reglan Zinc Sulfate 220 mg 06/17/21 10:00 06/18/21 22:54 Zinc Sulfate 220 Mg Cap PO 220 mg BID LYSSA Administration Nutrition/Malnutrition Assess - Dietary Evaluation Nutrition/Malnutrition Findings: Nutrition Notes Start: 06/16/21 14:17 Freq: Status: Active Protocol: Document 06/16/21 14:17 KIRAN (Rec: 06/16/21 14:17 KIRAN [id number]) Nutrition Notes Need for Assessment generated from: LOS Initial or Follow up Brief Note Subjective/Other Information Screen for LOS. Pt eating 75- 100% of meals. Nutrition Intervention Revisit per MD consult or patient Sign Off request:
[2021-06-19] MEDS: CHOLECALCIFEROL (VIT D3) 5,000 UNIT TAB PO SCH (10:18)
[2021-06-19] MEDS: FAMOTIDINE 10 MG TAB PO SCH ×2 (10:18→22:34)
[2021-06-19] MEDS: ZINC SULFATE 220 MG CAP PO SCH ×2 (10:18→22:34)
[2021-06-19] MEDS: ASCORBIC ACID 500 MG TAB PO SCH ×2 (10:18→22:34)
[2021-06-19] MEDS: INSULIN REGULAR, HUMAN 100 UNITS/1 ML SUB-Q SCH ×4 (10:19→22:35)
--- NOTE | 2021-06-19 14:04 | Progress Note ---
Assessment and Plan Cultures: Blood culture no growth today SARS CoV2 PCR positive Assessment: 55-year-old male with history of hypertension and morbid obesity, admitted on 06/09/2021 secondary to 8-day history of body aches, generalized malaise, cough and shortness of breath: #Severe COVID pneumonia: CXR with bilateral patchy infiltrates. Infllammatory markers elevated CRP of 6.3-->0.6. Procalcitonin elevated at 0.7. #Acute hypoxemic respiratory failure: Remains on HFNC, 30 L, 85%. #Elevated LFTs: from COVID. Improving. #Morbid obesity: Associated with worse outcomes. BMI 42. Recommendations: -Continue steroids daily for 10 days -Completed remdesivir -Completed ceftriaxone/azithromycin -Continue anticoagulation per System Protocol -guarded prognosis ID will sign off. Please reconsult as needed. Maura Granados MD, FACP [facility] O: [phone] F: [phone] Subjective Date of service: 06/19/21 Interval history: Afebrile. Remains on high flow nasal cannula. Objective - Exam Narrative Exam: Physical Exam (reviewed in chart to minimize risk of transmission) Constitutional: deferred Head, Ears, Nose: deferred Eyes: deferred Neck: deferred Oral: deferred Cardiovascular: deferred Respiratory: deferred GI: deferred Musculoskeletal: deferred Skin: deferred Hem/Lymphatic: deferred Psych: deferred Neurological: deferred - Constitutional Vitals: Vital Signs Temp Pulse Resp BP Pulse Ox 97.5 F L 56 L 18 131/81 95 06/19/21 04:30 06/19/21 04:30 06/19/21 04:30 06/19/21 04:30 06/19/21 11:24 Temperature -Last 24 Hours Temperature 97.5 F Temperature 97.8 F Temperature 98.7 F - Labs CBC & Chem 7: 06/15/21 05:51 06/15/21 05:51 Labs: Abnormal lab results 06/18/21 06/18/21 06/19/21 Range/Units 17:09 21:24 07:46 POC Glucose 214 H 158 H 153 H (70-105) mg/dL 06/19/21 Range/Units 11:44 POC Glucose 112 H (70-105) mg/dL
[2021-06-20] MEDS: HEPARIN 5,000 UNIT/1 ML VIAL SUB-Q SCH ×3 (06:50→23:36)
--- NOTE | 2021-06-20 07:33 | Progress Note ---
Assessment and Plan Assessment and plan: 55-year-old male who tested positive for COVID 19 as outpt with history of hypertension and morbid obesity, admitted on 06/09/2021 secondary to 8-day history of body aches, generalized malaise, cough and shortness of breath: A/P --COVID-19 pneumonia -Patient tested positive for COVID-19 virus outpt -CXR shows patchy parenchymal disease which represent atypical pneumonia -S/p dexamethasone, azithromycin and Rocephin in the ED -Placed on dexamethasone for total 10 days and remdesivir total 5 days -Continue empiric ceftriaxone and Zithromax as procalcitonin level is elevated -Infectious disease consulted, -Droplet/contact isolation -Continue SPO2 monitoring -Supplemental oxygen as needed -Pulmonary hygiene -Prone to sleep -Vitamin C, vitamin D, zinc -Anticoagulation per protocol -Lasix IV as needed to prevent pulmonary edema --Acute hypoxic respiratory failure Empiric steroid, supplemental O2, albuterol inhalers, ABG chest x-ray per protocol, consult pulmonary --Hypertension, resume home meds, hydralazine iv to keep SBP <160 --Elevated LFTs, due to COVID PNA --Morbid obesity, associated with worse outcome for COVID --DVT prophylaxis per protocol Daily clinical course: 06/10/21: Patient remains on high flow O2, ID and pulmonary care consulted. Initiated dexamethasone and remdesivir. Patient tested positive for COVID-19. Continue to follow inflammatory markers. Guarded prognosis. 06/11/21: Remains on high flow O2, continue dexamethasone and remdesivir. Follow inflammatory markers, wean off O2 as tolerated. Trend LFT. Guarded prognosis. 06/12/21: Patient remains on high flow 100% FiO2, follow inflammatory markers, continue dexamethasone remdesivir. Guarded prognosis. ID following. 06/13/21: Remains on high flow O2: HFNC 100%/30L. cont to follow inflammatory markers, 06/14/21: unable to wean off from high flow O2, follow inflammatory markers. Guarded prognosis. 06/15/21: Remains on high flow O2, continue to follow inflammatory markers. ID and pulmonary following. Guarded prognosis. Completed remdesivir. 06/16/21: Continue to follow inflammatory markers, patient remains on high flow O2, guarded prognosis. 06/17/21: Remains on high flow O2, continue to follow inflammatory markers 06/18/21: Continue to follow inflammatory markers, patient remains on high flow O2, guarded prognosis. BP stable 06/19; patient is on 30 L of high flow oxygen with FiO2 of 60%. ID and pulmonary consult appreciated. Prognosis is guarded. 06/20; patient is on 30 L of high flow oxygen with FiO2 of 60%. Titrate down oxygen as tolerated. History Interval history: Patient was seen and evaluated this morning Patient was on 30 L of high flow oxygen, with FiO2 of 60% Patient said he is breathing better Hospitalist Physical - Physical exam Narrative exam: Not in cardiopulmonary distress. The patient is morbidly obese Vital signs as documented. Head exam is unremarkable. No scleral icterus . Neck is without jugular venous distension, thyromegaly, or carotid bruits. Lungs decreased air entry Cardiac exam reveals regular rate and Rhythm. Abdominal exam reveals normal bowel sounds, nontender, no organomegaly. Extremities are nonedematous and both femoral and pedal pulses are normal. 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 No focal weakness. - Constitutional Vitals: Temp Pulse Resp BP Pulse Ox 97.7 F 62 20 115/64 92 06/20/21 04:42 06/20/21 04:42 06/20/21 04:42 06/20/21 04:42 06/20/21 04:42 Results - Labs CBC & Chem 7: 06/15/21 05:51 06/15/21 05:51 Labs: Laboratory Last Values WBC 11.4 K/mm3 (4.5-11.0) H 06/15/21 05:51 RBC 5.43 M/mm3 (3.65-5.03) H 06/15/21 05:51 Hgb 15.1 gm/dl (11.8-15.2) 06/15/21 05:51 Hct 46.0 % (35.5-45.6) H 06/15/21 05:51 MCV 85 fl (84-94) 06/15/21 05:51 MCH 28 pg (28-32) 06/15/21 05:51 MCHC 33 % (32-34) 06/15/21 05:51 RDW 15.4 % (13.2-15.2) H 06/15/21 05:51 Plt Count 446 K/mm3 (140-440) H 06/15/21 05:51 Lymph % (Auto) 13.1 % (13.4-35.0) L 06/15/21 05:51 [place] % (Auto) 11.8 % (0.0-7.3) H 06/15/21 05:51 Eos % (Auto) 0.4 % (0.0-4.3) 06/15/21 05:51 Baso % (Auto) 0.1 % (0.0-1.8) 06/15/21 05:51 Lymph # (Auto) 1.5 K/mm3 (1.2-5.4) 06/15/21 05:51 [place] # (Auto) 1.3 K/mm3 (0.0-0.8) H 06/15/21 05:51 Eos # (Auto) 0.0 K/mm3 (0.0-0.4) 06/15/21 05:51 Baso # (Auto) 0.0 K/mm3 (0.0-0.1) 06/15/21 05:51 Seg Neutrophils % 74.6 % (40.0-70.0) H 06/15/21 05:51 Seg Neutrophils # 8.5 K/mm3 (1.8-7.7) H 06/15/21 05:51 D-Dimer 149.11 ng/mlDDU (0-234) 06/17/21 15:30 ABG pH 7.424 pH Units (7.350-7.450) 06/15/21 18:35 ABG pCO2 38.9 mm Hg 06/15/21 18:35 ABG pO2 77.3 mm Hg (80.0-90.0) L 06/15/21 18:35 ABG HCO3 24.9 mmol/L (20.0-26.0) 06/15/21 18:35 ABG O2 Saturation 95.9 % (95.0-99.0) 06/15/21 18:35 ABG O2 Content 21.3 (0.0-44) 06/15/21 18:35 ABG Base Excess 0.7 mmol/L (-2.0-3.0) 06/15/21 18:35 ABG Hemoglobin 16.0 gm/dl (14.0-18.0) 06/15/21 18:35 ABG Carboxyhemoglobin 0.9 % (0.0-5.0) 06/15/21 18:35 ABG Methemoglobin 0.5 % (0.0-1.5) 06/15/21 18:35 Oxyhemoglobin 94.6 % (95.0-99.0) L 06/15/21 18:35 FiO2 85 % 06/15/21 18:35 Sodium 139 mmol/L (137-145) 06/15/21 05:51 Potassium 4.1 mmol/L (3.6-5.0) 06/15/21 05:51 Chloride 104.6 mmol/L (98-107) 06/15/21 05:51 Carbon Dioxide 27 mmol/L (22-30) 06/15/21 05:51 Anion Gap 12 mmol/L 06/15/21 05:51 BUN 17 mg/dL (9-20) 06/15/21 05:51 Creatinine 0.6 mg/dL (0.8-1.3) L 06/15/21 05:51 Estimated GFR > 60 ml/min 06/15/21 05:51 BUN/Creatinine Ratio 28 % 06/15/21 05:51 Glucose 120 mg/dL (75-100) H 06/15/21 05:51 POC Glucose 111 mg/dL (70-105) H 06/19/21 21:17 Calcium 9.1 mg/dL (8.4-10.2) 06/15/21 05:51 Ferritin 896.9 ng/mL (30.0-300.0) H 06/17/21 15:30 Total Bilirubin 0.50 mg/dL (0.1-1.2) 06/12/21 05:57 AST 48 units/L (5-40) H 06/12/21 05:57 ALT 99 units/L (7-56) H 06/12/21 05:57 Alkaline Phosphatase 84 units/L (35-129) 06/12/21 05:57 Lactate Dehydrogenase 233 units/L (91-180) H 06/17/21 15:30 C-Reactive Protein 0.20 mg/dL (0.00-1.30) 06/17/21 15:30 Total Protein 7.2 g/dL (6.3-8.2) 06/12/21 05:57 Albumin 3.2 g/dL (3.9-5) L 06/12/21 05:57 Albumin/Globulin Ratio 0.8 % 06/12/21 05:57 Procalcitonin < 0.05 ng/mL (<0.15) 06/17/21 15:30 Coronavirus (PCR) Positive (Negative) A 06/10/21 08:42 Stacy/IV: Voiding Method Urinal Active Medications - Current Medications Current Medications: Generic Name Dose Route Start Last Admin Trade Name Freq PRN Reason Stop Dose Admin Acetaminophen 650 mg 06/09/21 17:43 Acetaminophen 325 Mg Tab PO Q4H PRN Pain MILD(1-3)/Fever >100.5/JOYCE Hydrocodone Bitart/Acetaminophen 2 each 06/09/21 17:43 Hydrocodone/Acetaminophen 5-325 Mg Tab PO Q6H PRN Pain, Moderate (4-6) Ascorbic Acid 1,000 mg 06/09/21 22:00 06/19/21 22:34 Ascorbic Acid 500 Mg Tab PO 1,000 mg BID LYSSA Administration Cholecalciferol 5,000 unit 06/10/21 10:00 06/19/21 10:18 Cholecalciferol (Vit D3) 5,000 Unit Tab PO 5,000 unit DAILY LYSSA Administration Famotidine 10 mg 06/09/21 22:00 06/19/21 22:34 Famotidine 10 Mg Tab PO 10 mg BID LYSSA Administration Heparin Sodium (Porcine) 5,000 unit 06/09/21 22:00 06/20/21 06:50 Heparin 5,000 Unit/1 Ml Vial SUB-Q 5,000 unit Q8HR LYSSA Administration Hydralazine HCl 5 mg 06/09/21 17:43 06/15/21 18:55 Hydralazine 20 Mg/1 Ml Inj IV 5 mg Q30MIN PRN Administration Hypertension Insulin Human Regular 0 units 06/09/21 22:00 06/19/21 22:35 Insulin Regular, Human 100 Units/1 Ml SUB-Q Not Given ACHS [facility] Protocol Ondansetron HCl 4 mg 06/09/21 17:43 Ondansetron 4 Mg/2 Ml Inj IV Q8H PRN N/V unrelieved by Helen Zinc Sulfate 220 mg 06/17/21 10:00 06/19/21 22:34 Zinc Sulfate 220 Mg Cap PO 220 mg BID LYSSA Administration Nutrition/Malnutrition Assess - Dietary Evaluation Nutrition/Malnutrition Findings: Nutrition Notes Start: 06/16/21 14 :17 Freq: Status: Active Protocol: Document 06/16/21 14:17 KIRAN (Rec: 06/16/21 14:17 KIRAN [id number]) Nutrition Notes Need for Assessment generated from: LOS Initial or Follow up Brief Note Subjective/Other Information Screen for LOS. Pt eating 75- 100% of meals. Nutrition Intervention Revisit per MD consult or patient Sign Off request:
[2021-06-20] MEDS: INSULIN REGULAR, HUMAN 100 UNITS/1 ML SUB-Q SCH ×4 (11:20→23:37)
[2021-06-20] MEDS: CHOLECALCIFEROL (VIT D3) 5,000 UNIT TAB PO SCH (11:21)
[2021-06-20] MEDS: ZINC SULFATE 220 MG CAP PO SCH ×2 (11:21→23:36)
[2021-06-20] MEDS: FAMOTIDINE 10 MG TAB PO SCH ×2 (11:21→23:35)
[2021-06-20] MEDS: ASCORBIC ACID 500 MG TAB PO SCH ×2 (11:21→23:36)
[2021-06-21] MEDS: INSULIN REGULAR, HUMAN 100 UNITS/1 ML SUB-Q SCH ×4 (08:50→22:29)
[2021-06-21] MEDS: ASCORBIC ACID 500 MG TAB PO SCH ×2 (09:21→22:28)
[2021-06-21] MEDS: ZINC SULFATE 220 MG CAP PO SCH ×2 (09:21→22:28)
[2021-06-21] MEDS: FAMOTIDINE 10 MG TAB PO SCH ×2 (09:22→22:28)
[2021-06-21] MEDS: CHOLECALCIFEROL (VIT D3) 5,000 UNIT TAB PO SCH (09:22)
--- NOTE | 2021-06-21 10:54 | Progress Note ---
Assessment and Plan Assessment and plan: 55-year-old male who tested positive for COVID 19 as outpt with history of hypertension and morbid obesity, admitted on 06/09/2021 secondary to 8-day history of body aches, generalized malaise, cough and shortness of breath: A/P --COVID-19 pneumonia -Patient tested positive for COVID-19 virus outpt -CXR shows patchy parenchymal disease which represent atypical pneumonia -S/p dexamethasone, azithromycin and Rocephin in the ED -Placed on dexamethasone for total 10 days and remdesivir total 5 days -Continue empiric ceftriaxone and Zithromax as procalcitonin level is elevated -Infectious disease consulted, -Droplet/contact isolation -Continue SPO2 monitoring -Supplemental oxygen as needed -Pulmonary hygiene -Prone to sleep -Vitamin C, vitamin D, zinc -Anticoagulation per protocol -Lasix IV as needed to prevent pulmonary edema --Acute hypoxic respiratory failure Empiric steroid, supplemental O2, albuterol inhalers, ABG chest x-ray per protocol, consult pulmonary --Hypertension, resume home meds, hydralazine iv to keep SBP <160 --Elevated LFTs, due to COVID PNA --Morbid obesity, associated with worse outcome for COVID --DVT prophylaxis per protocol Daily clinical course: 06/10/21: Patient remains on high flow O2, ID and pulmonary care consulted. Initiated dexamethasone and remdesivir. Patient tested positive for COVID-19. Continue to follow inflammatory markers. Guarded prognosis. 06/11/21: Remains on high flow O2, continue dexamethasone and remdesivir. Follow inflammatory markers, wean off O2 as tolerated. Trend LFT. Guarded prognosis. 06/12/21: Patient remains on high flow 100% FiO2, follow inflammatory markers, continue dexamethasone remdesivir. Guarded prognosis. ID following. 06/13/21: Remains on high flow O2: HFNC 100%/30L. cont to follow inflammatory markers, 06/14/21: unable to wean off from high flow O2, follow inflammatory markers. Guarded prognosis. 06/15/21: Remains on high flow O2, continue to follow inflammatory markers. ID and pulmonary following. Guarded prognosis. Completed remdesivir. 06/16/21: Continue to follow inflammatory markers, patient remains on high flow O2, guarded prognosis. 06/17/21: Remains on high flow O2, continue to follow inflammatory markers 06/18/21: Continue to follow inflammatory markers, patient remains on high flow O2, guarded prognosis. BP stable 06/19; patient is on 30 L of high flow oxygen with FiO2 of 60%. ID and pulmonary consult appreciated. Prognosis is guarded. 06/20; patient is on 30 L of high flow oxygen with FiO2 of 60%. Titrate down oxygen as tolerated. 06/21; patient was on 5 L of oxygen via nasal cannula. Titrate oxygen down as tolerated. We will do 6-minute walk. Possible discharge tomorrow if his oxygen requirement is 5 or below. History Interval history: Patient was seen and evaluated this morning Patient was on 5 L of high flow oxygen Patient said he is breathing better Hospitalist Physical - Physical exam Narrative exam: Not in cardiopulmonary distress. The patient is morbidly obese Vital signs as documented. Head exam is unremarkable. No scleral icterus . Neck is without jugular venous distension, thyromegaly, or carotid bruits. Lungs decreased air entry Cardiac exam reveals regular rate and Rhythm. Abdominal exam reveals normal bowel sounds, nontender, no organomegaly. Extremities are nonedematous and both femoral and pedal pulses are normal. 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 - Constitutional Vitals: Temp Pulse Resp BP Pulse Ox 97.7 F 74 18 112/70 96 06/20/21 21:15 06/20/21 21:15 06/21/21 05:56 06/20/21 21:15 06/21/21 05:56 Results - Labs CBC & Chem 7: 06/15/21 05:51 06/15/21 05:51 Labs: Laboratory Last Values WBC 11.4 K/mm3 (4.5-11.0) H 06/15/21 05:51 RBC 5.43 M/mm3 (3.65-5.03) H 06/15/21 05:51 Hgb 15.1 gm/dl (11.8-15.2) 06/15/21 05:51 Hct 46.0 % (35.5-45.6) H 06/15/21 05:51 MCV 85 fl (84-94) 06/15/21 05:51 MCH 28 pg (28-32) 06/15/21 05:51 MCHC 33 % (32-34) 06/15/21 05:51 RDW 15.4 % (13.2-15.2) H 06/15/21 05:51 Plt Count 446 K/mm3 (140-440) H 06/15/21 05:51 Lymph % (Auto) 13.1 % (13.4-35.0) L 06/15/21 05:51 [place] % (Auto) 11.8 % (0.0-7.3) H 06/15/21 05:51 Eos % (Auto) 0.4 % (0.0-4.3) 06/15/21 05:51 Baso % (Auto) 0.1 % (0.0-1.8) 06/15/21 05:51 Lymph # (Auto) 1.5 K/mm3 (1.2-5.4) 06/15/21 05:51 [place] # (Auto) 1.3 K/mm3 (0.0-0.8) H 06/15/21 05:51 Eos # (Auto) 0.0 K/mm3 (0.0-0.4) 06/15/21 05:51 Baso # (Auto) 0.0 K/mm3 (0.0-0.1) 06/15/21 05:51 Seg Neutrophils % 74.6 % (40.0-70.0) H 06/15/21 05:51 Seg Neutrophils # 8.5 K/mm3 (1.8-7.7) H 06/15/21 05:51 D-Dimer 149.11 ng/mlDDU (0-234) 06/17/21 15:30 ABG pH 7.424 pH Units (7.350-7.450) 06/15/21 18:35 ABG pCO2 38.9 mm Hg 06/15/21 18:35 ABG pO2 77.3 mm Hg (80.0-90.0) L 06/15/21 18:35 ABG HCO3 24.9 mmol/L (20.0-26.0) 06/15/21 18:35 ABG O2 Saturation 95.9 % (95.0-99.0) 06/15/21 18:35 ABG O2 Content 21.3 (0.0-44) 06/15/21 18:35 ABG Base Excess 0.7 mmol/L (-2.0-3.0) 06/15/21 18:35 ABG Hemoglobin 16.0 gm/dl (14.0-18.0) 06/15/21 18:35 ABG Carboxyhemoglobin 0.9 % (0.0-5.0) 06/15/21 18:35 ABG Methemoglobin 0.5 % (0.0-1.5) 06/15/21 18:35 Oxyhemoglobin 94.6 % (95.0-99.0) L 06/15/21 18:35 FiO2 85 % 06/15/21 18:35 Sodium 139 mmol/L (137-145) 06/15/21 05:51 Potassium 4.1 mmol/L (3.6-5.0) 06/15/21 05:51 Chloride 104.6 mmol/L (98-107) 06/15/21 05:51 Carbon Dioxide 27 mmol/L (22-30) 06/15/21 05:51 Anion Gap 12 mmol/L 06/15/21 05:51 BUN 17 mg/dL (9-20) 06/15/21 05:51 Creatinine 0.6 mg/dL (0.8-1.3) L 06/15/21 05:51 Estimated GFR > 60 ml/min 06/15/21 05:51 BUN/Creatinine Ratio 28 % 06/15/21 05:51 Glucose 120 mg/dL (75-100) H 06/15/21 05:51 POC Glucose 115 mg/dL (70-105) H 06/21/21 07:41 Calcium 9.1 mg/dL (8.4-10.2) 06/15/21 05:51 Ferritin 896.9 ng/mL (30.0-300.0) H 06/17/21 15:30 Total Bilirubin 0.50 mg/dL (0.1-1.2) 06/12/21 05:57 AST 48 units/L (5-40) H 06/12/21 05:57 ALT 99 units/L (7-56) H 06/12/21 05:57 Alkaline Phosphatase 84 units/L (35-129) 06/12/21 05:57 Lactate Dehydrogenase 233 units/L (91-180) H 06/17/21 15:30 C-Reactive Protein 0.20 mg/dL (0.00-1.30) 06/17/21 15:30 Total Protein 7.2 g/dL (6.3-8.2) 06/12/21 05:57 Albumin 3.2 g/dL (3.9-5) L 06/12/21 05:57 Albumin/Globulin Ratio 0.8 % 06/12/21 05:57 Procalcitonin < 0.05 ng/mL (<0.15) 06/17/21 15:30 Coronavirus (PCR) Positive (Negative) A 06/10/21 08:42 Stacy/IV: Voiding Method Urinal Active Medications - Current Medications Current Medications: Generic Name Dose Route Start Last Admin Trade Name Freq PRN Reason Stop Dose Admin Acetaminophen 650 mg 06/09/21 17:43 Acetaminophen 325 Mg Tab PO Q4H PRN Pain MILD(1-3)/Fever >100.5/JOYCE Hydrocodone Bitart/Acetaminophen 2 each 06/09/21 17:43 Hydrocodone/Acetaminophen 5-325 Mg Tab PO Q6H PRN Pain, Moderate (4-6) Ascorbic Acid 1,000 mg 06/09/21 22:00 06/21/21 09:21 Ascorbic Acid 500 Mg Tab PO 1,000 mg BID LYSSA Administration Cholecalciferol 5,000 unit 06/10/21 10:00 06/21/21 09:22 Cholecalciferol (Vit D3) 5,000 Unit Tab PO 5,000 unit DAILY LYSSA Administration Famotidine 10 mg 06/09/21 22:00 06/21/21 09:22 Famotidine 10 Mg Tab PO 10 mg BID LYSSA Administration Heparin Sodium (Porcine) 5,000 unit 06/09/21 22:00 06/20/21 23:36 Heparin 5,000 Unit/1 Ml Vial SUB-Q 5,000 unit Q8HR LYSSA Administration Hydralazine HCl 5 mg 06/09/21 17:43 06/15/21 18:55 Hydralazine 20 Mg/1 Ml Inj IV 5 mg Q30MIN PRN Administration Hypertension Insulin Human Regular 0 units 06/09/21 22:00 06/21/21 08:50 Insulin Regular, Human 100 Units/1 Ml SUB-Q Not Given ACHS LYSSA Protocol Ondansetron HCl 4 mg 06/09/21 17:43 Ondansetron 4 Mg/2 Ml Inj IV Q8H PRN N/V unrelieved by Reglan Zinc Sulfate 220 mg 06/17/21 10:00 06/21/21 09:21 Zinc Sulfate 220 Mg Cap PO 220 mg BID LYSSA Administration Nutrition/Malnutrition Assess - Dietary Evaluation Nutrition/Malnutrition Findings: Nutrition Notes Start: 06/16/21 14:17 Freq: Status: Active Protocol: Document 06/16/21 14:17 KIRAN (Rec: 06/16/21 14:17 KIRAN [id number]) Nutrition Notes Need for Assessment generated from: LOS Initial or Follow up Brief Note Subjective/Other Information Screen for LOS. Pt eating 75- 100% of meals. Nutrition Intervention Revisit per MD consult or patient Sign Off request:
[2021-06-21] MEDS: HEPARIN 5,000 UNIT/1 ML VIAL SUB-Q SCH ×2 (15:05→22:30)
--- NOTE | 2021-06-21 17:16 | Progress Note ---
Assessment and Plan Patient is 55 years old male Morbidley Obese,with history of hypertension presented to the ER complaining of difficulty in breathing, cough and generalized weakness for the last 8 days. Patient stated that he was diagnosed with COVID-19 5 days ago after his son was diagnosed with COVID-19 few days before that. Patient found to have an oxygen saturation of 88% on room air improved improved to 92% on 5 L. On arrival, temperature 99.4, HR 86, BP 146/77, RR 30, CXR showed b/l infiltrates. Patient being admitted for further e valuation and management. Patient has history smoking long time ago. Stopped smoking many years ago. Occassional alcohol. 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 Patient alert, awake and sitting up in chair. Patient is on 5 litres o2 and O2 saturation running 96%. Patient denies chest pain, shortness of breath or cough. Patient afebrile.Has mild leukocytosis. Blood pressure 125/78, Pulse 71. Patients inflammatory markers Serum Ferritin 896.9 LDH 233 CRP .20 D dimer 149.11 Chest xray obtained 06/15/21 reported Patchy parenchymal opacities in both mid to lower lung zones have not changed significantly. Ultrasound of lower extremity 06/16/21 reported No sonographic evidence for DVT in either lower extremity. Repeating chest xray and ABGs. Patient presently on S/C heparin, Famotidine. - Patient Problems (1) Acute respiratory failure with hypoxia Current Visit: Yes Status: Acute Plan to address problem: O2 5 litres. Continue S/C heparin Continue famotidine. Recommend Prone positioning. (2) Bilateral pneumonia Current Visit: Yes Status: Acute Plan to address problem: Antibiotics as per ID. (3) Coronavirus infection Current Visit: Yes Status: Acute Plan to address problem: Management as per infectious diseases. Subjective Date of service: 06/21/21 Interval history: Patient is 55 years old male Morbidley Obese,with history of hypertension presented to the ER complaining of difficulty in breathing, cough and generalized weakness for the last 8 days. Patient stated that he was diagnosed with COVID-19 5 days ago after his son was diagnosed with COVID-19 few days before that. Patient found to have an oxygen saturation of 88% on room air improved improved to 92% on 5 L. On arrival, temperature 99.4, HR 86, BP 146/77, RR 30, CXR showed b/l infiltrates. Patient being admitted for further evaluation and management. Patient has history smoking long time ago. Stopped smoking many years ago. Occassional alcohol. 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 Patient alert, awake and sitting up in chair. Patient is on 5 litres o2 and O2 saturation running 96%. Patient denies chest pain, shortness of breath or cough. Patient afebrile.Has mild leukocytosis. Blood pressure 125/78, Pulse 71. Patients inflammatory markers Serum Ferritin 896.9 LDH 233 CRP .20 D dimer 149.11 Chest xray obtained 06/15/21 reported Patchy parenchymal opacities in both mid to lower lung zones have not changed significantly. Ultrasound of lower extremity 06/16/21 reported No sonographic evidence for DVT i n either lower extremity. Repeating chest xray and ABGs. Patient presently on S/C heparin, Famotidine. Objective Vital Signs - 12hr 06/21/21 06/21/21 06/21/21 05:28 05:56 11:31 Temperature 98.2 F 98.3 F Pulse Rate 65 74 Respiratory 18 18 18 Rate Blood Pressure 116/70 126/69 O2 Sat by Pulse 95 96 97 Oximetry 06/21/21 16:13 Temperature Pulse Rate Respiratory 18 Rate Blood Pressure O2 Sat by Pulse 94 Oximetry Constitutional: no acute distress, alert Eyes: non-icteric ENT: oropharynx moist Neck: supple, no lymphadenopathy, no JVD Effort: mildly labored Ascultation: Bilateral: diminished breath sounds Cardiovascular: regular rate and rhythm, other (S1,S2) Gastrointestinal: normoactive bowel sounds, soft, non-tender, non-distended, other (obese) Integumentary: normal Extremities: no cyanosis, no edema, pulses normal Neurologic: normal mental status, non-focal exam, pupils equal and round, CN II- XII normal, motor strength normal and Psychiatric: mood appropriate, affect normal CBC and BMP: 06/15/21 05:51 06/15/21 05:51 ABG, PT/INR, D-dimer: ABG ABG pH 7.424 pH Units (7.350-7.450) 06/15/21 18:35 ABG pCO2 38.9 mm Hg 06/15/21 18:35 ABG pO2 77.3 mm Hg (80.0-90.0) L 06/15/21 18:35 ABG O2 Saturation 95.9 % (95.0-99.0) 06/15/21 18:35 PT/INR, D-dimer D-Dimer 149.11 ng/mlDDU (0-234) 06/17/21 15:30 Abnormal lab findings: Abnormal Labs 06/09/21 06/09/21 06/09/21 16:03 16:03 16:03 WBC RBC 5.66 H Hgb 15.9 H Hct 47.9 H MCV MCH RDW 15.6 H Plt Count Lymph % (Auto) Fountain % (Auto) 10.8 H Lymph # (Auto) Fountain # (Auto) 1.0 H Seg Neutrophils % 73.7 H Seg Neutrophils # D-Dimer 306.17 H ABG pO2 Oxyhemoglobin Sodium Creatinine Glucose 104 H POC Glucose Calcium Ferritin AST 182 H ALT 151 H Lactate Dehydrogenase C-Reactive Protein Total Protein 8.3 H Albumin Coronavirus (PCR) 06/09/21 06/09/21 06/09/21 16:03 16:03 20:47 WBC RBC Hgb Hct MCV MCH RDW Plt Count Lymph % (Auto) Fountain % (Auto) Lymph # (Auto) Fountain # (Auto) Seg Neutrophils % Seg Neutrophils # D-Dimer ABG pO2 Oxyhemoglobin Sodium 136 L Creatinine 0.7 L Glucose 143 H POC Glucose Calcium 8.2 L Ferritin 2377.0 H AST 152 H ALT 130 H Lactate Dehydrogenase 575 H C-Reactive Protein 6.30 H Total Protein Albumin 3.4 L Coronavirus (PCR) 06/09/21 06/10/21 06/10/21 21:45 05:05 08:42 WBC RBC Hgb Hct MCV MCH RDW Plt Count Lymph % (Auto) Fountain % (Auto) Lymph # (Auto) Fountain # (Auto) Seg Neutrophils % Seg Neutrophils # D-Dimer ABG pO2 Oxyhemoglobin Sodium Creatinine 0.6 L Glucose 142 H POC Glucose 158 H Calcium Ferritin AST 138 H ALT 125 H Lactate Dehydrogenase C-Reactive Protein Total Protein Albumin 3.4 L Coronavirus (PCR) Positive A 06/10/21 06/10/21 06/10/21 16:08 17:35 21:20 WBC RBC Hgb Hct MCV MCH RDW Plt Count Lymph % (Auto) Fountain % (Auto) Lymph # (Auto) Fountain # (Auto) Seg Neutrophils % Seg Neutrophils # D-Dimer ABG pO2 Oxyhemoglobin Sodium Creatinine Glucose POC Glucose 136 H 182 H Calcium Ferritin AST ALT Lactate Dehydrogenase C-Reactive Protein 6.80 H Total Protein Albumin Coronavirus (PCR) 06/11/21 06/11/21 06/11/21 06:12 06:12 07:53 WBC 11.8 H RBC 5.25 H Hgb Hct MCV 83 L MCH 27 L RDW 15.3 H Plt Count Lymph % (Auto) 9.5 L Fountain % (Auto) 11.4 H Lymph # (Auto) 1.1 L Fountain # (Auto) 1.4 H Seg Neutrophils % 79.0 H Seg Neutrophils # 9.3 H D-Dimer ABG pO2 Oxyhemoglobin Sodium Creatinine 0.6 L Glucose 144 H POC Glucose 134 H Calcium Ferritin AST 83 H ALT 119 H Lactate Dehydrogenase C-Reactive Protein Total Protein Albumin 3.2 L Coronavirus (PCR) 06/11/21 06/11/21 06/11/21 12:02 17:32 22:49 WBC RBC Hgb Hct MCV MCH RDW Plt Count Lymph % (Auto) Fountain % (Auto) Lymph # (Auto) Fountain # (Auto) Seg Neutrophils % Seg Neutrophils # D-Dimer ABG pO2 Oxyhemoglobin Sodium Creatinine Glucose POC Glucose 141 H 200 H 127 H Calcium Ferritin AST ALT Lactate Dehydrogenase C-Reactive Protein Total Protein Albumin Coronavirus (PCR) 06/12/21 06/12/21 06/12/21 05:57 07:45 11:25 WBC RBC Hgb Hct MCV MCH RDW Plt Count Lymph % (Auto) Fountain % (Auto) Lymph # (Auto) Fountain # (Auto) Seg Neutrophils % Seg Neutrophils # D-Dimer ABG pO2 Oxyhemoglobin Sodium Creatinine 0.6 L Glucose 128 H POC Glucose 119 H 129 H Calcium Ferritin AST 48 H ALT 99 H Lactate Dehydrogenase C-Reactive Protein Total Protein Albumin 3.2 L Coronavirus (PCR) 06/12/21 06/12/21 06/13/21 16:19 21:20 16:24 WBC RBC Hgb Hct MCV MCH RDW Plt Count Lymph % (Auto) Fountain % (Auto) Lymph # (Auto) Fountain # (Auto) Seg Neutrophils % Seg Neutrophils # D-Dimer ABG pO2 Oxyhemoglobin Sodium Creatinine Glucose POC Glucose 176 H 182 H 172 H Calcium Ferritin AST ALT Lactate Dehydrogenase C-Reactive Protein Total Protein Albumin Coronavirus (PCR) 06/13/21 06/14/21 06/14/21 21:59 12:08 18:02 WBC RBC Hgb Hct MCV MCH RDW Plt Count Lymph % (Auto) Fountain % (Auto) Lymph # (Auto) Fountain # (Auto) Seg Neutrophils % Seg Neutrophils # D-Dimer ABG pO2 Oxyhemoglobin Sodium Creatinine Glucose POC Glucose 226 H 124 H 193 H Calcium Ferritin AST ALT Lactate Dehydrogenase C-Reactive Protein Total Protein Albumin Coronavirus (PCR) 06/14/21 06/15/21 06/15/21 22:18 05:51 05:51 WBC 11.4 H RBC 5.43 H Hgb Hct 46.0 H MCV MCH RDW 15.4 H Plt Count 446 H Lymph % (Auto) 13.1 L Fountain % (Auto) 11.8 H Lymph # (Auto) Fountain # (Auto) 1.3 H Seg Neutrophils % 74.6 H Seg Neutrophils # 8.5 H D-Dimer ABG pO2 Oxyhemoglobin Sodium Creatinine 0.6 L Glucose 120 H POC Glucose 272 H Calcium Ferritin AST ALT Lactate Dehydrogenase C-Reactive Protein Total Protein Albumin Coronavirus (PCR) 06/15/21 06/15/21 06/15/21 07:58 11:43 18:28 WBC RBC Hgb Hct MCV MCH RDW Plt Count Lymph % (Auto) Fountain % (Auto) Lymph # (Auto) Fountain # (Auto) Seg Neutrophils % Seg Neutrophils # D-Dimer ABG pO2 Oxyhemoglobin Sodium Creatinine Glucose POC Glucose 128 H 155 H 244 H Calcium Ferritin AST ALT Lactate Dehydrogenase C-Reactive Protein Total Protein Albumin Coronavirus (PCR) 06/15/21 06/15/21 06/16/21 18:35 21:52 07:46 WBC RBC Hgb Hct MCV MCH RDW Plt Count Lymph % (Auto) Fountain % (Auto) Lymph # (Auto) Fountain # (Auto) Seg Neutrophils % Seg Neutrophils # D-Dimer ABG pO2 77.3 L Oxyhemoglobin 94.6 L Sodium Creatinine Glucose POC Glucose 180 H 158 H Calcium Ferritin AST ALT Lactate Dehydrogenase C-Reactive Protein Total Protein Albumin Coronavirus (PCR) 06/16/21 06/16/21 06/17/21 16:59 21:40 07:27 WBC RBC Hgb Hct MCV MCH RDW Plt Count Lymph % (Auto) Fountain % (Auto) Lymph # (Auto) Fountain # (Auto) Seg Neutrophils % Seg Neutrophils # D-Dimer ABG pO2 Oxyhemoglobin Sodium Creatinine Glucose POC Glucose 219 H 180 H 111 H Calcium Ferritin AST ALT Lactate Dehydrogenase C-Reactive Protein Total Protein Albumin Coronavirus (PCR) 06/17/21 06/17/21 06/17/21 15:30 15:30 16:24 WBC RBC Hgb Hct MCV MCH RDW Plt Count Lymph % (Auto) Fountain % (Auto) Lymph # (Auto) Fountain # (Auto) Seg Neutrophils % Seg Neutrophils # D-Dimer ABG pO2 Oxyhemoglobin Sodium Creatinine Glucose POC Glucose 163 H Calcium Ferritin 896.9 H AST ALT Lactate Dehydrogenase 233 H C-Reactive Protein Total Protein Albumin Coronavirus (PCR) 06/17/21 06/18/21 06/18/21 21:29 07:43 11:46 WBC RBC Hgb Hct MCV MCH RDW Plt Count Lymph % (Auto) Fountain % (Auto) Lymph # (Auto) Fountain # (Auto) Seg Neutrophils % Seg Neutrophils # D-Dimer ABG pO2 Oxyhemoglobin Sodium Creatinine Glucose POC Glucose 218 H 107 H 106 H Calcium Ferritin AST ALT Lactate Dehydrogenase C-Reactive Protein Total Protein Albumin Coronavirus (PCR) 06/18/21 06/18/21 06/19/21 17:09 21:24 07:46 WBC RBC Hgb Hct MCV MCH RDW Plt Count Lymph % (Auto) Fountain % (Auto) Lymph # (Auto) Fountain # (Auto) Seg Neutrophils % Seg Neutrophils # D-Dimer ABG pO2 Oxyhemoglobin Sodium Creatinine Glucose POC Glucose 214 H 158 H 153 H Calcium Ferritin AST ALT Lactate Dehydrogenase C-Reactive Protein Total Protein Albumin Coronavirus (PCR) 06/19/21 06/19/21 06/19/21 11:44 17:29 21:17 WBC RBC Hgb Hct MCV MCH RDW Plt Count Lymph % (Auto) Fountain % (Auto) Lymph # (Auto) Fountain # (Auto) Seg Neutrophils % Seg Neutrophils # D-Dimer ABG pO2 Oxyhemoglobin Sodium Creatinine Glucose POC Glucose 112 H 132 H 111 H Calcium Ferritin AST ALT Lactate Dehydrogenase C-Reactive Protein Total Protein Albumin Coronavirus (PCR) 06/20/21 06/20/21 06/21/21 17:09 21:16 07:41 WBC RBC Hgb Hct MCV MCH RDW Plt Count Lymph % (Auto) Fountain % (Auto) Lymph # (Auto) Fountain # (Auto) Seg Neutrophils % Seg Neutrophils # D-Dimer ABG pO2 Oxyhemoglobin Sodium Creatinine Glucose POC Glucose 113 H 144 H 115 H Calcium Ferritin AST ALT Lactate Dehydrogenase C-Reactive Protein Total Protein Albumin Coronavirus (PCR) 06/21/21 15:38 WBC RBC Hgb Hct MCV MCH RDW Plt Count Lymph % (Auto) Fountain % (Auto) Lymph # (Auto) [place]ountain # (Auto) Seg Neutrophils % Seg Neutrophils # D-Dimer ABG pO2 Oxyhemoglobin Sodium Creatinine Glucose POC Glucose 135 H Calcium Ferritin AST ALT Lactate Dehydrogenase C-Reactive Protein Total Protein Albumin Coronavirus (PCR)
[2021-06-22] MEDS: HEPARIN 5,000 UNIT/1 ML VIAL SUB-Q SCH (05:50)
[2021-06-22 07:18] VITALS: BP 118/61
[2021-06-22] MEDS: INSULIN REGULAR, HUMAN 100 UNITS/1 ML SUB-Q SCH ×2 (08:30→11:40)
[2021-06-22] MEDS: ZINC SULFATE 220 MG CAP PO SCH (10:28)
[2021-06-22] MEDS: FAMOTIDINE 10 MG TAB PO SCH (10:28)
[2021-06-22] MEDS: ASCORBIC ACID 500 MG TAB PO SCH (10:28)
[2021-06-22] MEDS: CHOLECALCIFEROL (VIT D3) 5,000 UNIT TAB PO SCH (10:28)
--- NOTE | 2021-06-22 11:35 | Discharge Summary ---
Providers - Providers Date of Admission: 06/09/21 17:06 Date of discharge: 06/22/21 Attending physician: DAFNE WRIGHT MD 06/09/21 17:45 Consult to Physician [CONS] Routine Comment: Consulting Provider: HANNAH HENDRICKSON Physician Instructions: Reason For Exam: covid 06/14/21 14:34 Consult to Physician [CONS] Routine Comment: Consulting Provider: BRIDGET FRAUSTO Physician Instructions: Reason For Exam: acute respiratory failure Primary care physician: ZIGZAG STITCHER Hospitalization Reason for admission: Acute hypoxic respiratory failure, Covid pneumonia Condition: Stable Hospital course: History of present illness: Patient is 55 years old male with history of hypertension presented to the ER complaining of difficulty in breathing, cough and generalized weakness for the last 8 days. Patient stated that he was diagnosed with COVID-19 5 days ago after his son was diagnosed with COVID-19 few days before that. Patient found to have an oxygen saturation of 88% on room air improved improved to 92% on 5 L. On arrival, temperature 99.4, HR 86, BP 146/77, RR 30, CXR showed b/l infiltrates. Patient being admitted for further evaluation and management. Hospital course --COVID-19 pneumonia -Patient tested positive for COVID-19 virus outpt -CXR shows patchy parenchymal disease which represent atypical pneumonia -S/p dexamethasone, azithromycin and Rocephin in the ED -Placed on dexamethasone for total 10 days and remdesivir total 5 days -Continue empiric ceftriaxone and Zithromax as procalcitonin level is elevated -Infectious disease consulted, -Droplet/contact isolation -Continue SPO2 monitoring -Supplemental oxygen as needed -Pulmonary hygiene -Prone to sleep -Vitamin C, vitamin D, zinc -Anticoagulation per protocol -Lasix IV as needed to prevent pulmonary edema --Acute hypoxic respiratory failure Empiric steroid, supplemental O2, albuterol inhalers, ABG chest x-ray per protocol, consult pulmonary --Hypertension, resume home meds, hydralazine iv to keep SBP <160 --Elevated LFTs, due to COVID PNA --Morbid obesity, associated with worse outcome for COVID --DVT prophylaxis per protocol Daily clinical course: 06/10/21: Patient remains on high flow O2, ID and pulmonary care consulted. I nitiated dexamethasone and remdesivir. Patient tested positive for COVID-19. Continue to follow inflammatory markers. Guarded prognosis. 06/11/21: Remains on high flow O2, continue dexamethasone and remdesivir. Follow inflammatory markers, wean off O2 as tolerated. Trend LFT. Guarded prognosis. 06/12/21: Patient remains on high flow 100% FiO2, follow inflammatory markers, continue dexamethasone remdesivir. Guarded prognosis. ID following. 06/13/21: Remains on high flow O2: HFNC 100%/30L. cont to follow inflammatory markers, 06/14/21: unable to wean off from high flow O2, follow inflammatory markers. Guarded prognosis. 06/15/21: Remains on high flow O2, continue to follow inflammatory markers. ID and pulmonary following. Guarded prognosis. Completed remdesivir. 06/16/21: Continue to follow inflammatory markers, patient remains on high flow O2, guarded prognosis. 06/17/21: Remains on high flow O2, continue to follow inflammatory markers 06/18/21: Continue to follow inflammatory markers, patient remains on high flow O2, guarded prognosis. BP stable 06/19; patient is on 30 L of high flow oxygen with FiO2 of 60%. ID and pulmonary consult appreciated. Prognosis is guarded. 06/20; patient is on 30 L of high flow oxygen with FiO2 of 60%. Titrate down oxygen as tolerated. 06/21; patient was on 5 L of oxygen via nasal cannula. Titrate oxygen down as tolerated. We will do 6-minute walk. Possible discharge tomorrow if his oxygen requirement is 5 or below. 06/22; patient was seen and evaluated this morning, patient was on 3 L of oxygen. Patient said he was ambulating in the room without any problems with 3 L of oxygen. Case management consulted for oxygen. Patient can go home after he gets his home oxygen. Patient has insurance with [employer]. Disposition: HOME / SELF CARE / HOMELESS Final Discharge Diagnosis (Prints w/discharge instructions): Acute hypoxic respiratory failure. Covid pneumonia Time spent for discharge: 35-minutes - Discharge Diagnoses (1) Acute respiratory failure with hypoxia Status: Acute (2) Bilateral pneumonia Status: Acute (3) Coronavirus infection Status: Acute Core Measure Documentation - Palliative Care Palliative Care/ Comfort Measures: Not Applicable - Core Measures Any of the following diagnoses?: none Exam - Physical Exam Narrative exam: Not in cardiopulmonary distress. The patient is morbidly obese Vital signs as documented. Head exam is unremarkable. No scleral icterus . Neck is without jugular venous distension, thyromegaly, or carotid bruits. Lungs CTAB. Cardiac exam reveals regular rate and Rhythm. Abdominal exam reveals normal bowel sounds, nontender, no organomegaly. Extremities are nonedematous and both femoral and pedal pulses are normal. 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 No focal weakness. - Constitutional Vitals: Temp Pulse Resp BP Pulse Ox 98.2 F 73 20 118/61 93 06/22/21 04:41 06/22/21 04:41 06/22/21 04:41 06/22/21 04:41 06/22/21 04:41 Plan Activity: no restrictions Weight Bearing Status: Full Weight Bearing Diet: regular Follow up with: PRIMARY CAREMD [Primary Care Provider] - 3-5 Days
== END 2021-06-22 14:15 | disposition home or self-care (01) | DRG 177 ==
LOC: ED 14:30 → 3A 17:06
PROVIDERS: ADMIT Internal Medicine; ATTEND Internal Medicine
PROC: XW033E5 Introduction of Remdesivir Anti-infective into Peripheral Vein, Percutaneous Approach, New Technology Group 5 (ICD-10-PCS; 2021-06-09)
PROC: 4A033R1 Measurement of Arterial Saturation, Peripheral, Percutaneous Approach (ICD-10-PCS; principal; 2021-06-15)
DX: U07.1 COVID-19 (principal); J96.01 Acute respiratory failure with hypoxia; J12.82 Pneumonia due to coronavirus disease 2019; Z68.41 Body mass index [BMI] 40.0-44.9, adult; E66.01 Morbid (severe) obesity due to excess calories; I10 Essential (primary) hypertension; Z82.49 Family history of ischemic heart disease and other diseases of the circulatory system
CPT/HCPCS: 36415; 36600; 71045; 80048; 80053; 82728; 82803; 82962; 83615; 84145; 85025; 85379; 86140; 87040; 93005; 93306; 93970; 94760; G0378; J0360; J0456; J0696; J1100; J1644; J1815; J7030; J7050; J8540; U0003

== ENCOUNTER 2021-07-18 15:38 | Emergency (ER) | payer OTHER ==
[2021-07-18] MEDS ORDERED: OXYMETAZOLINE 0.05% NASAL SPRAY NS ONE (16:53)
--- NOTE | 2021-07-18 17:31 | Emergency Department Report ---
ED ENT HPI - General Chief complaint: Nosebleed Stated complaint: BLEEDING NOSE Time Seen by Provider: 07/18/21 16:46 Source: patient, family Mode of arrival: Ambulatory Limitations: No Limitations - History of Present Illness Initial comments: 55-year-old male, history of hypertension, presents to ED with nosebleed. Patient reports intermittent nosebleeding since this morning. Patient was seen for same a couple of days ago. He denies rubbing, picking, or blowing the nose at onset. Nosebleed is currently resolved after patient held pressure. He denies any headache. MD complaint: epistaxis -: This morning Location: nose Severity: mild Consistency: intermittent Improves with: pressure Worsens with: none Context-Epistaxis: history of similar Associated Symptoms: denies: fever - Related Data Home Medications Medication Instructions Recorded Confirmed Last Taken Norvasc 5 mg PO DAILY 06/15/21 06/15/21 06/01/21 Allergies Allergy/AdvReac Type Severity Reaction Status Date / Time No Known Allergies Allergy Verified 07/15/21 21:43 ED Dental HPI - General Chief complaint: Nosebleed Stated complaint: BLEEDING NOSE Time Seen by Provider: 07/18/21 16:46 Source: patient, family Mode of arrival: Ambulatory Limitations: No Limitations - Related Data Home Medications Medication Instructions Recorded Confirmed Last Taken Norvasc 5 mg PO DAILY 06/15/21 06/15/21 06/01/21 Allergies Allergy/AdvReac Type Severity Reaction Status Date / Time No Known Allergies Allergy Verified 07/15/21 21:43 ED Review of Systems ROS: Stated complaint: BLEEDING NOSE Other details as noted in HPI Comment: All other systems reviewed and negative Constitutional: denies: fever ENT: epistaxis ED Past Medical Hx - Past Medical History Previous Medical History?: Yes Hx Hypertension: Yes Hx HIV: No Additional medical history: Covid - Surgical History Past Surgical History?: Yes - Social History Smoking Status: Never Smoker Substance Use Type: None - Medications Home Medications: Home Medications Medication Instructions Recorded Confirmed Last Taken Type Norvasc 5 mg PO DAILY 06/15/21 06/15/21 06/01/21 History ED Physical Exam - General Limitations: No Limitations General appearance: alert, in no apparent distress - Head Head exam: Present: atraumatic, normocephalic - Eye Eye exam: Present: normal appearance, EOMI - ENT ENT exam: Present: mucous membranes moist, other (Dried blood in nare) - Neck Neck exam: Present: normal inspection - Respiratory Respiratory exam: Present: normal lung sounds bilaterally. Absent: respiratory distress - Cardiovascular Cardiovascular Exam: Present: regular rate, normal rhythm - GI/Abdominal GI/Abdominal exam: Absent: distended - Extremities Exam Extremities exam: Present: normal inspection - Neurological Exam Neurological exam: Present: alert, oriented X3 - Psychiatric Psychiatric exam: Present: normal affect, normal mood - Skin Skin exam: Present: warm, dry, intact, normal color ED Course Vital Signs 07/18/21 07/18/21 07/18/21 15:47 15:59 16:00 Temperature 98 F Pulse Rate 82 85 82 Respiratory 16 16 19 Rate Blood Pressure 157/93 Blood Pressure 173/96 [Left] O2 Sat by Pulse 94 97 96 Oximetry 07/18/21 07/18/21 07/18/21 16:04 16:15 16:31 Temperature 97.2 F L Pulse Rate 114 H 83 78 Respiratory 18 11 L 11 L Rate Blood Pressure 157/93 154/88 145/83 Blood Pressure [Left] O2 Sat by Pulse 96 95 96 Oximetry 07/18/21 07/18/21 07/18/21 16:45 17:01 17:31 Temperature Pulse Rate 77 72 77 Respiratory 22 21 22 Rate Blood Pressure 148/87 148/95 138/84 Blood Pressure [Left] O2 Sat by Pulse 95 95 94 Oximetry 07/18/21 07/18/21 18:01 18:11 Temperature 97.2 F L Pulse Rate 77 90 Respiratory 21 18 Rate Blood Pressure 137/85 Blood Pressure 137/85 [Left] O2 Sat by Pulse 95 95 Oximetry ED Medical Decision Making - Medical Decision Making 55-year-old male presents to ED with nosebleed. Patient has applied pressure and bleeding is currently resolved. Only dried blood in nares. Afrin administered. Patient will be discharged at this time. Outpatient follow-up advised, return precautions given. - Differential Diagnosis Epistaxis Critical care attestation.: If time is entered above; I have spent that time in minutes in the direct care of this critically ill patient, excluding procedure time. ED Disposition Clinical Impression: Epistaxis Disposition: 01 HOME / SELF CARE / HOMELESS Is pt being admited?: No Condition: Stable Instructions: Nosebleed, [id number] Referrals: ANTONIOHALINA TEAGUE MD [Referring] - 3-5 Days ANDRES CLEMENT MD [Referring] - 3-5 Days Time of Disposition: 17:27
[2021-07-18 18:06] VITALS: BP 137/85
== END 2021-07-18 18:20 | disposition home or self-care (01) ==
LOC: ED 15:38
DX: R04.0 Epistaxis (principal); I10 Essential (primary) hypertension
CPT/HCPCS: 99282